=== PATIENT | female | born 1940 | race Caucasian/White ===

== ENCOUNTER 2016-07-18 22:23 | Inpatient (IN) | payer OTHER ==
[2016-07-18] MEDS ORDERED: NS 1,000 ML IV ONE (22:46)
--- NOTE | 2016-07-18 22:55 | PROVIDER DOCUMENTATION ---
HPI-General Adult <Costa Coleman Jaime - Last Filed: 07/19/16 01:03> - General Source: family - History of Present Illness -Gen Adult Nature of Presenting Problems: 76 year old F presents to the ED via EMS with a cc of cough, lethargy, and weakness. Per , pt has cancer and went to have chemo 3 day ago. Pt was told blood count was too low. Pt woke the next morning with a productive cough. states that pt has been more lethargic and weak. Location of Pain/Injury: reports: none Pain Radiation: reports: no radiation Quality of Pain: reports: none Severity: reports: mild Onset/Duration: reports: 2 days ago Timing: reports: still present Associated Symptoms: reports: cough, weakness, other (lethargy) Similar Symptoms Previously?: No Recently seen or treated by another doctor?: No <JeronimoYen - Last Filed: 07/19/16 01:12> - General Chief Complaint: Altered Mental Status Stated Complaint: AMS Time Seen by Provider: 07/18/16 22:30 Allergies/Adverse Reactions: Patient Allergies Allergy/AdvReac Type Severity Reaction Status Date / Time amoxicillin trihydrate * AdvReac Intermediate NAUSEA/VOMI Verified 02/26/13 08: 19 [From Augmentin] TING codeine [Codeine] AdvReac Intermediate NAUSEA/VOMI Verified 02/26/13 08:19 TING etodolac [From Lodine] AdvReac Intermediate NAUSEA/VOMI Verified 02/26/13 08:19 TING potassium clavulanate * AdvReac Intermediate NAUSEA/VOMI Verified 02/26/13 08:19 [From Augmentin] TING pseudoephedrine AdvReac Intermediate NAUSEA/VOMI Verified 02/26/13 08:19 TING simvastatin [From Zocor] AdvReac Intermediate NAUSEA/VOMI Verified 02/26/13 08: 19 TING zolpidem tartrate * AdvReac Intermediate NAUSEA/VOMI Verified 02/26/13 08:19 [From Ambien] TING Home Medications: Allopurinol 300 mg PO DAILY 03/03/12 Carvedilol [Coreg] 3.125 mg PO BID 03/03/12 Fluvoxamine [Luvox] 50 mg PO BID 03/03/12 Furosemide [Lasix] 60 mg PO DAILY PRN PRN 03/03/12 Levothyroxine [Synthroid] 50 microgm PO DAILY 03/03/12 Pravastatin Sodium [Pravachol] 10 mg PO DAILY 03/03/12 Promethazine [Phenergan] 25 mg PO TID PRN PRN 03/03/12 Tramadol [Ultram] 50 mg PO Q4H PRN PRN 03/03/12 Trazodone HCl 150 mg PO QHS 12/08/12 Warfarin Sodium [Coumadin] 2.5 mg PO DAILY 12/08/12 Omeprazole 40 mg PO HS 02/26/13 Lisinopril 5 mg PO DAILY 05/30/13 Lorazepam [Ativan] 0.5 mg PO BID 11/16/14 Acetaminophen [Tylenol] 500 mg PO PRN PRN 12/28/14 Metolazone [Zaroxolyn] 5 mg PO DIRECTED 12/28/14 Diclofenac 1% Gel [Voltaren 1% Gel] 2 gm TOP 4XDAY PRN 02/13/16 Gabapentin [Neurontin] 600 mg PO TID 02/13/16 Vit B6/Me-Thfolate/Me-B12/Ala [Podiapn Capsule] 1 each PO DAILY 02/13/16 Review of Systems - Adult - REVIEW OF SYSTEMS - ADULT Constitutional: reports: other (lethargy). denies: chills, fever Eyes: reports: no symptoms reported Ears, Nose, Mouth & Throat: reports: no symptoms reported Cardiovascular: denies: chest pain, palpitations Respiratory: reports: cough. denies: shortness of breath Gastrointestinal: reports: no symptoms reported Genitourinary: reports: no symptoms reported Musculoskeletal: reports: muscle weakness. denies: muscle aches Integumentary: reports: no symptoms reported Neurological: reports: no symptoms reported Psychiatric: reports: no symptoms reported Endocrine: reports: no symptoms reported Hematologic/Lymphatic: reports: no symptoms reported Allergic/Immunologic: reports: no symptoms reported All Other Systems: Reviewed and Negative <Yen Decker - Last Filed: 07/19/16 01:12> Past History - Adult - PAST MEDICAL HISTORY-ADULT Review of Records: reports: Nursing Assessment Review, Medications Reviewed Major Childhood Illnesses: reports: denies history Cardiovascular: reports: pacemaker Respiratory: reports: cancer Endocrine/Immune: reports: Diabetes, thyroid disorder - PRIOR SURGERIES/PROCEDURES Surgical/Procedure History: reports: none - IMMUNIZATION STATUS Childhood Immunizations: See Nurse Assessment Flu Vaccine: See Nurse Assessment - SOCIAL HISTORY Smoking: non-smoker Substance Use: none/never Alcohol Use Frequency: never <Yen Decker - Last Filed: 07/19/16 01:12> Physical Exam-General - PHYSICAL EXAM-ADULT Initial Vital Signs Reviewed: Yes - CONSTITUTIONAL General Appearance: appears well, alert, no apparent distress - RESPIRATORY Respiratory: chest non-tender, normal breath sounds, rhonchi (bilaterally) - CARDIOVASCULAR Cardiovascular: normal peripheral pulses, regular rate, rhythm, no edema - GASTROINTESTINAL (ABDOMEN) Abdominal Exam: non tender, soft - SKIN Integumentary: normal color, normal turgor, warm/dry - PSYCHIATRIC Psych/Mental Status: normal mood/affect, normal thought content, normal thought process, oriented x 3 <Yen Decker - Last Filed: 07/19/16 01:12> Progress - PLAN OF CARE/RESULTS Progress/Plan/Lab Results: Laboratory Tests 07/18/16 07/18/16 07/18/16 22:40 22:40 22:40 WBC RBC Hgb Hct MCV MCH MCHC RDW Std Deviation Plt Count MPV Immature Gran % (Auto) Neut % (Auto) Lymph % (Auto) [place] % (Auto) Eos % (Auto) Baso % (Auto) Immature Gran # (Auto) Neut # (Auto) Lymph # (Auto) [place] # (Auto) Eos # (Auto) Baso # (Auto) PT 24.9 H INR 2.33 PTT (Actin FS) 89.1 H POC Glucose Ammonia Creatine Kinase 48 Troponin T < 0.010 Plasma Lactate Urine Source Urine Color Urine Turbidity Urine pH Ur Specific [place] Urine Protein Ur Glucose (Stick) Ur Ketones (Stick) Urine Blood Urine Nitrite Urine Bilirubin Urobilinogen Dipstick Urine Leukocytes Urine WBC (Auto) Urine RBC (Auto) U Epithel Cells (Auto) Urine Bacteria (Auto) Urine Opiates Screen Ur Oxycodone Screen Ur Methadone, Qual Ur Barbiturates Screen Ur Phencyclidine Scrn Ur Amphetamines Screen U Benzodiazepines Scrn Urine Cocaine Screen U Cannabinoids Screen 07/18/16 07/18/16 07/18/16 22:40 22:40 22:45 WBC 1.77 L RBC 4.03 L Hgb 12.9 Hct 37.7 MCV 93.5 MCH 32.0 H MCHC 34.2 RDW Std Deviation 15.1 H Plt Count 133 MPV 12.7 H Immature Gran % (Auto) 0.0 Neut % (Auto) 1.1 L Lymph % (Auto) 48.0 [place] % (Auto) 50.3 H Eos % (Auto) 0.0 Baso % (Auto) 0.6 Immature Gran # (Auto) 0.00 Neut # (Auto) 0.02 L* Lymph # (Auto) 0.85 L [place] # (Auto) 0.89 H Eos # (Auto) 0.00 Baso # (Auto) 0.01 PT INR PTT (Actin FS) POC Glucose 156 H Ammonia Creatine Kinase Troponin T Plasma Lactate 1.4 Urine Source Urine Color Urine Turbidity Urine pH Ur Specific [place] Urine Protein Ur Glucose (Stick) Ur Ketones (Stick) Urine Blood Urine Nitrite Urine Bilirubin Urobilinogen Dipstick Urine Leukocytes Urine WBC (Auto) Urine RBC (Auto) U Epithel Cells (Auto) Urine Bacteria (Auto) Urine Opiates Screen Ur Oxycodone Screen Ur Methadone, Qual Ur Barbiturates Screen Ur Phencyclidine Scrn Ur Amphetamines Screen U Benzodiazepines Scrn Urine Cocaine Screen U Cannabinoids Screen 07/19/16 07/19/16 07/19/16 00:15 00:15 00:15 WBC RBC Hgb Hct MCV MCH MCHC RDW Std Deviation Plt Count MPV Immature Gran % (Auto) Neut % (Auto) Lymph % (Auto) [place] % (Auto) Eos % (Auto) Baso % (Auto) Immature Gran # (Auto) Neut # (Auto) Lymph # (Auto) [place] # (Auto) Eos # (Auto) Baso # (Auto) PT INR PTT (Actin FS) POC Glucose Ammonia 30 Creatine Kinase Troponin T Plasma Lactate Urine Source CLEAN CATCH Urine Color YELLOW Urine Turbidity CLEAR Urine pH 6.5 Ur Specific [place] 1.012 Urine Protein NEGATIVE Ur Glucose (Stick) NEGATIVE Ur Ketones (Stick) NEGATIVE Urine Blood NEGATIVE Urine Nitrite NEGATIVE Urine Bilirubin NEGATIVE Urobilinogen Dipstick NORMAL Urine Leukocytes NEGATIVE Urine WBC (Auto) <10 Urine RBC (Auto) <10 U Epithel Cells (Auto) <10 Urine Bacteria (Auto) NEGATIVE Urine Opiates Screen NONE DETECTED Ur Oxycodone Screen NONE DETECTED Ur Methadone, Qual NONE DETECTED Ur Barbiturates Screen NONE DETECTED Ur Phencyclidine Scrn NONE DETECTED Ur Amphetamines Screen NONE DETECTED U Benzodiazepines Scrn NONE DETECTED Urine Cocaine Screen NONE DETECTED U Cannabinoids Screen NONE DETECTED Orders Category Date Time Status Saline Loc NOW Care 07/18/16 22:30 Active CHEST-2 VIEWS [RAD] Stat Exams 07/18/16 22:31 Taken HEAD W/O CONTRAST [CT] Stat Exams 07/18/16 22:32 Taken AMMONIA [CHEM] Stat Lab 07/18/16 23:59 Completed BLOOD CULTURE [BLDCUL] Stat Lab 07/18/16 22:46 Ordered CBC WITH ELECTRONIC DIFF [HEME] Stat Lab 07/18/16 22:40 Results CK PROFILE [SP CHEM] Stat Lab 07/18/16 22:40 Completed COMPREHENSIVE METABOLIC PANEL [CHEM] Stat Lab 07/18/16 22:40 Received LACTATE, PLASMA [CHEM] Stat Lab 07/18/16 22:40 Completed LIPASE [CHEM] Stat Lab 07/18/16 22:40 Received MAGNESIUM [CHEM] Stat Lab 07/18/16 22:40 Received PROTIME WITH INR [COAG] Stat Lab 07/18/16 22:40 Completed PTT [COAG] Stat Lab 07/18/16 22:40 Completed TROPONIN T Stat Lab 07/18/16 22:40 Completed URINALYSIS W/POSS RFLX CULT [URINALYSIS] Stat Lab 07/18/16 22:40 Completed URINE DRUG SCREEN Stat Lab 07/19/16 00:15 Completed 0.9% Sodium Chloride Inj [Ns] 1,000 ml Med 07/18/16 22:46 Discontinued IV 999 mls/hr CefTRIAXONE 1 GM/NS [Rocephin 1 gm/Ns] 50 ml Med 07/19/16 01:00 Active IV NOW EKG [EKG] Stat Ther 07/18/16 22:30 Ordered Vital Signs Temp Pulse Resp BP Pulse Ox 07/18/16 22:27 99.0 F 70 14 113/61 92 L amoxicillin trihydrate * [From Augmentin] Adverse Reaction (Intermediate, Verified 02/26/13 08:19) NAUSEA/VOMITING codeine [Codeine] Adverse Reaction (Intermediate, Verified 02/26/13 08:19) NAUSEA/VOMITING etodolac [From Lodine] Adverse Reaction (Intermediate, Verified 02/26/13 08:19) NAUSEA/VOMITING potassium clavulanate * [From Augmentin] Adverse Reaction (Intermediate, Verified 02/26/13 08:19) NAUSEA/VOMITING pseudoephedrine Adverse Reaction (Intermediate, Verified 02/26/13 08:19) NAUSEA/VOMITING simvastatin [From Zocor] Adverse Reaction (Intermediate, Verified 02/26/13 08:19 ) NAUSEA/VOMITING zolpidem tartrate * [From Ambien] Adverse Reaction (Intermediate, Verified 02/26 08:19) NAUSEA/VOMITING Allopurinol 300 mg PO DAILY 12 Carvedilol [Coreg] 3.125 mg PO BID 03/03/12 Fluvoxamine [Luvox] 50 mg PO BID 03/03/12 Furosemide [Lasix] 60 mg PO DAILY PRN PRN 03/03/12 Levothyroxine [Synthroid] 50 microgm PO DAILY 03/03/12 Pravastatin Sodium [Pravachol] 10 mg PO DAILY 03/03/12 Promethazine [Phenergan] 25 mg PO TID PRN PRN 03/03/12 Tramadol [Ultram] 50 mg PO Q4H PRN PRN 03/03/12 Trazodone HCl 150 mg PO QHS 12/08/12 Warfarin Sodium [Coumadin] 2.5 mg PO DAILY 12/08/12 Omeprazole 40 mg PO HS 02/26/13 Lisinopril 5 mg PO DAILY 05/30/13 Lorazepam [Ativan] 0.5 mg PO BID 11/16/14 Acetaminophen [Tylenol] 500 mg PO PRN PRN 12/28/14 Metolazone [Zaroxolyn] 5 mg PO DIRECTED 12/28/14 Diclofenac 1% Gel [Voltaren 1% Gel] 2 gm TOP 4XDAY PRN 02/13/16 Gabapentin [Neurontin] 600 mg PO TID 02/13/16 Vit B6/Me-Thfolate/Me-B12/Ala [Podiapn Capsule] 1 each PO DAILY 02/13/16 Laboratory 07/19/16 07/19/16 07/19/16 00:15 00:15 00:15 WBC RBC Hgb Hct MCV MCH MCHC RDW Std Deviation Plt Count MPV Immature Gran % (Auto) Neut % (Auto) Lymph % (Auto) [place] % (Auto) Eos % (Auto) Baso % (Auto) Immature Gran # (Auto) Neut # (Auto) Lymph # (Auto) [place] # (Auto) Eos # (Auto) Baso # (Auto) PT INR PTT (Actin FS) POC Glucose Ammonia 30 Creatine Kinase Troponin T Plasma Lactate Urine Source CLEAN CATCH Urine Color YELLOW Urine Turbidity CLEAR Urine pH 6.5 Ur Specific [place] 1.012 Urine Protein NEGATIVE Ur Glucose (Stick) NEGATIVE Ur Ketones (Stick) NEGATIVE Urine Blood NEGATIVE Urine Nitrite NEGATIVE Urine Bilirubin NEGATIVE Urobilinogen Dipstick NORMAL Urine Leukocytes NEGATIVE Urine WBC (Auto) <10 Urine RBC (Auto) <10 U Epithel Cells (Auto) <10 Urine Bacteria (Auto) NEGATIVE Urine Opiates Screen NONE DETECTED Ur Oxycodone Screen NONE DETECTED Ur Methadone, Qual NONE DETECTED Ur Barbiturates Screen NONE DETECTED Ur Phencyclidine Scrn NONE DETECTED Ur Amphetamines Screen NONE DETECTED U Benzodiazepines Scrn NONE DETECTED Urine Cocaine Screen NONE DETECTED U Cannabinoids Screen NONE DETECTED 07/18/16 07/18/16 07/18/16 22:45 22:40 22:40 WBC 1.77 L RBC 4.03 L Hgb 12.9 Hct 37.7 MCV 93.5 MCH 32.0 H MCHC 34.2 RDW Std Deviation 15.1 H Plt Count 133 MPV 12.7 H Immature Gran % (Auto) 0.0 Neut % (Auto) 1.1 L Lymph % (Auto) 48.0 [place] % (Auto) 50.3 H Eos % (Auto) 0.0 Baso % (Auto) 0.6 Immature Gran # (Auto) 0.00 Neut # (Auto) 0.02 L* Lymph # (Auto) 0.85 L [place] # (Auto) 0.89 H Eos # (Auto) 0.00 Baso # (Auto) 0.01 PT INR PTT (Actin FS) POC Glucose 156 H Ammonia Creatine Kinase Troponin T Plasma Lactate 1.4 Urine Source Urine Color Urine Turbidity Urine pH Ur Specific [place] Urine Protein Ur Glucose (Stick) Ur Ketones (Stick) Urine Blood Urine Nitrite Urine Bilirubin Urobilinogen Dipstick Urine Leukocytes Urine WBC (Auto) Urine RBC (Auto) U Epithel Cells (Auto) Urine Bacteria (Auto) Urine Opiates Screen Ur Oxycodone Screen Ur Methadone, Qual Ur Barbiturates Screen Ur Phencyclidine Scrn Ur Amphetamines Screen U Benzodiazepines Scrn Urine Cocaine Screen U Cannabinoids Screen 07/18/16 07/18/16 07/18/16 22:40 22:40 22:40 WBC RBC Hgb Hct MCV MCH MCHC RDW Std Deviation Plt Count MPV Immature Gran % (Auto) Neut % (Auto) Lymph % (Auto) [place] % (Auto) Eos % (Auto) Baso % (Auto) Immature Gran # (Auto) Neut # (Auto) Lymph # (Auto) [place] # (Auto) Eos # (Auto) Baso # (Auto) PT 24.9 H INR 2.33 PTT (Actin FS) 89.1 H POC Glucose Ammonia Creatine Kinase 48 Troponin T < 0.010 Plasma Lactate Urine Source Urine Color Urine Turbidity Urine pH Ur Specific [place] Urine Protein Ur Glucose (Stick) Ur Ketones (Stick) Urine Blood Urine Nitrite Urine Bilirubin Urobilinogen Dipstick Urine Leukocytes Urine WBC (Auto) Urine RBC (Auto) U Epithel Cells (Auto) Urine Bacteria (Auto) Urine Opiates Screen Ur Oxycodone Screen Ur Methadone, Qual Ur Barbiturates Screen Ur Phencyclidine Scrn Ur Amphetamines Screen U Benzodiazepines Scrn Urine Cocaine Screen U Cannabinoids Screen Will admit to hospitalist service for neutropenic fever and possible pneumonia. - XRAY 1 XRAY Study: Chest XRAY Interpretation: ? bilateral infiltrates - CT/MRI 1 CT Study: Head CT Results: sinusitis, likely chronic; chronic ischemic changes; otherwise NAD <Costa Coleman - Last Filed: 07/19/16 01:03> - PLAN OF CARE/RESULTS Progress/Plan/Lab Results: plan of care: labs, imaging, fluids, medications, EKG Orders Category Date Time Status Saline Loc NOW Care 07/18/16 22:30 Active CHEST-2 VIEWS [RAD] Stat Exams 07/18/16 22:31 Taken HEAD W/O CONTRAST [CT] Stat Exams 07/18/16 22:32 Taken AMMONIA [CHEM] Stat Lab 07/18/16 23:59 Completed BLOOD CULTURE [BLDCUL] Stat Lab 07/18/16 23:39 Received CBC WITH ELECTRONIC DIFF [HEME] Stat Lab 07/18/16 22:40 Results CK PROFILE [SP CHEM] Stat Lab 07/18/16 22:40 Completed COMPREHENSIVE METABOLIC PANEL [CHEM] Stat Lab 07/18/16 22:40 Received LACTATE, PLASMA [CHEM] Stat Lab 07/18/16 22:40 Completed LIPASE [CHEM] Stat Lab 07/18/16 22:40 Received MAGNESIUM [CHEM] Stat Lab 07/18/16 22:40 Received PROTIME WITH INR [COAG] Stat Lab 07/18/16 22:40 Completed PTT [COAG] Stat Lab 07/18/16 22:40 Completed TROPONIN T Stat Lab 07/18/16 22:40 Completed URINALYSIS W/POSS RFLX CULT [URINALYSIS] Stat Lab 07/18/16 22:40 Completed URINE DRUG SCREEN Stat Lab 07/19/16 00:15 Completed 0.9% Sodium Chloride Inj [Ns] 1,000 ml Med 07/18/16 22:46 Discontinued IV 999 mls/hr CefTRIAXONE 1 GM/NS [Rocephin 1 gm/Ns] 50 ml Med 07/19/16 01:00 Discontinued IV NOW Meropenem [Merrem] 1 gm Med 07/19/16 01:09 Active 0.9% Sodium Chloride Inj [Ns] 50 ml IV NOW EKG [EKG] Stat Ther 07/18/16 22:30 Ordered Laboratory Tests 07/18/16 07/18/16 07/18/16 22:40 22:40 22:40 WBC RBC Hgb Hct MCV MCH MCHC RDW Std Deviation Plt Count MPV Immature Gran % (Auto) Neut % (Auto) Lymph % (Auto) [place] % (Auto) Eos % (Auto) Baso % (Auto) Immature Gran # (Auto) Neut # (Auto) Lymph # (Auto) [place] # (Auto) Eos # (Auto) Baso # (Auto) PT 24.9 H INR 2.33 PTT (Actin FS) 89.1 H POC Glucose Ammonia Creatine Kinase 48 Troponin T < 0.010 Plasma Lactate Urine Source Urine Color Urine Turbidity Urine pH Ur Specific [place] Urine Protein Ur Glucose (Stick) Ur Ketones (Stick) Urine Blood Urine Nitrite Urine Bilirubin Urobilinogen Dipstick Urine Leukocytes Urine WBC (Auto) Urine RBC (Auto) U Epithel Cells (Auto) Urine Bacteria (Auto) Urine Opiates Screen Ur Oxycodone Screen Ur Methadone, Qual Ur Barbiturates Screen Ur Phencyclidine Scrn Ur Amphetamines Screen U Benzodiazepines Scrn Urine Cocaine Screen U Cannabinoids Screen 07/18/16 07/18/16 07/18/16 22:40 22:40 22:45 WBC 1.77 L RBC 4.03 L Hgb 12.9 Hct 37.7 MCV 93.5 MCH 32.0 H MCHC 34.2 RDW Std Deviation 15.1 H Plt Count 133 MPV 12.7 H Immature Gran % (Auto) 0.0 Neut % (Auto) 1.1 L Lymph % (Auto) 48.0 [place] % (Auto) 50.3 H Eos % (Auto) 0.0 Baso % (Auto) 0.6 Immature Gran # (Auto) 0.00 Neut # (Auto) 0.02 L* Lymph # (Auto) 0.85 L [place] # (Auto) 0.89 H Eos # (Auto) 0.00 Baso # (Auto) 0.01 PT INR PTT (Actin FS) POC Glucose 156 H Ammonia Creatine Kinase Troponin T Plasma Lactate 1.4 Urine Source Urine Color Urine Turbidity Urine pH Ur Specific [place] Urine Protein Ur Glucose (Stick) Ur Ketones (Stick) Urine Blood Urine Nitrite Urine Bilirubin Urobilinogen Dipstick Urine Leukocytes Urine WBC (Auto) Urine RBC (Auto) U Epithel Cells (Auto) Urine Bacteria (Auto) Urine Opiates Screen Ur Oxycodone Screen Ur Methadone, Qual Ur Barbiturates Screen Ur Phencyclidine Scrn Ur Amphetamines Screen U Benzodiazepines Scrn Urine Cocaine Screen U Cannabinoids Screen 07/19/16 07/19/16 07/19/16 00:15 00:15 00:15 WBC RBC Hgb Hct MCV MCH MCHC RDW Std Deviation Plt Count MPV Immature Gran % (Auto) Neut % (Auto) Lymph % (Auto) [place] % (Auto) Eos % (Auto) Baso % (Auto) Immature Gran # (Auto) Neut # (Auto) Lymph # (Auto) [place] # (Auto) Eos # (Auto) Baso # (Auto) PT INR PTT (Actin FS) POC Glucose Ammonia 30 Creatine Kinase Troponin T Plasma Lactate Urine Source CLEAN CATCH Urine Color YELLOW Urine Turbidity CLEAR Urine pH 6.5 Ur Specific [place] 1.012 Urine Protein NEGATIVE Ur Glucose (Stick) NEGATIVE Ur Ketones (Stick) NEGATIVE Urine Blood NEGATIVE Urine Nitrite NEGATIVE Urine Bilirubin NEGATIVE Urobilinogen Dipstick NORMAL Urine Leukocytes NEGATIVE Urine WBC (Auto) <10 Urine RBC (Auto) <10 U Epithel Cells (Auto) <10 Urine Bacteria (Auto) NEGATIVE Urine Opiates Screen NONE DETECTED Ur Oxycodone Screen NONE DETECTED Ur Methadone, Qual NONE DETECTED Ur Barbiturates Screen NONE DETECTED Ur Phencyclidine Scrn NONE DETECTED Ur Amphetamines Screen NONE DETECTED U Benzodiazepines Scrn NONE DETECTED Urine Cocaine Screen NONE DETECTED U Cannabinoids Screen NONE DETECTED Vital Signs - 24 hr 07/18/16 22:27 Temperature 99.0 F Pulse Rate 70 Respiratory 14 Rate Blood Pressure 113/61 O2 Sat by Pulse 92 L Oximetry Pt/family given results. Pt will be admitted to the hospitalist group. PT/ Family in agreement with plan of care. - EKG 1 Time of EKG reading by physician:: 22:28 EKG Read and Signed by:: Zurdo Dudley EKG Interpretation (*Must complete 3 of following elements*): Abnormal Rate: 70 Rhythm: ventricular paced rhythm [place]: normal - CONSULTS/PCP/HOSPITALIST Notification #1 *Consult/PCP/Hospitalist*: Dr. Austin([facility] Hospitalist) Time Discussed: 01:08 Consult Disposition: Will see in ED, Admit <Yen Decker - Last Filed: 07/19/16 01:12> Departure <Costa Coleman - Last Filed: 07/19/16 01:03> - Departure Time of Disposition Order: 01:10 Certified Medical Emergency: Emergent <Yen Decker - Last Filed: 07/19/16 01:12> - Departure DIAGNOSIS: Altered mental state Qualifiers: Altered mental status type: delirium Qualified Code(s): R41.0 - Disorientation , unspecified Neutropenia Qualifiers: Neutropenia type: secondary to cancer chemotherapy Qualified Code(s): D70.1 - Agranulocytosis secondary to cancer chemotherapy Pneumonia Qualifiers: Pneumonia type: due to unspecified organism Laterality: bilateral Lung location : lower lobe of lung Qualified Code(s): J18.9 - Pneumonia, unspecified organism Disposition: ADMITTED INPATIENT 09 Condition: Stable Referrals: Mary Shah MD [Primary Care Provider] - Attestation - Scribe Verification/Attestation Scribe:: Yen Decker Acting as Scribe for:: Costa Coleman Scribe documention review:: This chart was documented by a scribe and accurately reflects the service the provider performed and the decisions made by the provider. <Yen Decker - Last Filed: 07/19/16 01:12> Physician Attestation - Physician Attestation I, the provider, attest to the following statement:: Costa Coleman Physician documentation Attestation:: This documentation recorded by the scribe accurately reflects the service I personally performed and the decisions made by me. <Yen Decker - Last Filed: 07/19/16 01:12>
[2016-07-18 23:55] LABS: INR 2.33; PROTIME 24.9 Seconds (9.2-11.7); PTT 89.1 Seconds (22.0-36.0)
[2016-07-19 00:30] LABS: URINE CULTURE NEEDED? NO; URINE MICRO REVIEW NEEDED? NO; URINE SOURCE CLEAN CATCH
[2016-07-19 00:43] LABS: BILIRUBIN URINE NEGATIVE (NEGATIVE); BLOOD URINE NEGATIVE (NEGATIVE); COLOR YELLOW; GLUCOSE URINE NEGATIVE (NEGATIVE); LEUKOCYTES URINE NEGATIVE (NEGATIVE); NITRITE URINE NEGATIVE (NEGATIVE); PH URINE 6.5; PROTEIN URINE NEGATIVE (NEGATIVE); SP GRAVITY URINE 1.012; TURBIDITY URINE CLEAR (CLEAR); UROBILINOGEN URINE NORMAL (NORMAL)
[2016-07-19 00:44] LABS: UR EPITHELIAL CELLS <10 /HPF (<10); URINE BACTERIA NEGATIVE /HPF; URINE RBC <10 /HPF (<10); URINE WBC <10 /HPF (<10)
[2016-07-19 00:54] LABS: BASO% 0.6 % (0.0-0.8); HEMATOCRIT 37.7 % (37.0-47.0); HEMOGLOBIN 12.9 g/dL (12.0-16.0); LYMPH# 0.85 X1000 (1.2-3.4); MANUAL DIFF NEEDED? YES; MCHC 34.2 g/dL (33-37); MCV 93.5 FL (81-99); MONO# 0.89 X1000 (0.11-0.59); MONO% 50.3 % (1.7-9.3); MPV 12.7 FL (7.4-10.4); NEUT% 1.1 % (42.2-75.2); PLT 133 X1000 (130-400); RBC 4.03 XMIL (4.2-5.4)
[2016-07-19 00:59] LABS: UR AMPHETAMINES QUAL NONE DETECTED (NONE DETECT); UR BARBITUATES QUAL NONE DETECTED (NONE DETECT); UR BENZODIAZEPIN QUAL NONE DETECTED (NONE DETECT); UR CANNABINOIDS QUAL NONE DETECTED (NONE DETECT); UR COCAINE QUAL NONE DETECTED (NONE DETECT); UR METHADONE QUAL NONE DETECTED (NONE DETECT); UR OPIATES QUAL NONE DETECTED (NONE DETECT); UR OXYCODONE QUAL NONE DETECTED (NONE DETECT); UR PCP QUAL NONE DETECTED (NONE DETECT)
[2016-07-19] MEDS ORDERED: ROCEPHIN 1 GM/NS 50 ML IV ONE (01:00)
[2016-07-19] MEDS ORDERED: MERREM 1 GM in NS 50 ML IV ONE (01:09)
[2016-07-19 01:23] LABS: CHLORIDE 96 mmol/L (98-107); POTASSIUM 3.3 mmol/L (3.5-5.1); SODIUM 136 mmol/L (136-145); TCO2 24 mmol/L (25-35)
[2016-07-19 01:24] LABS: AGAP 16; BUN 15 mg/dL (8-22); COSMO 276
[2016-07-19 01:25] LABS: CALCIUM 9.1 mg/dL (8.8-10.2)
[2016-07-19 01:26] LABS: ALKALINE PHOSPHATASE 142 U/L (32-104); GOT 17 U/L (10-30); GPT 11 U/L (10-36); LIPASE 8 U/L (13-60); TOTAL BILIRUBIN 2.31 mg/dL (0.20-1.00); TOTAL PROTEIN 6.8 g/dL (6.3-8.3)
[2016-07-19 01:27] LABS: MAGNESIUM 1.3 mg/dL (1.5-2.7)
[2016-07-19 01:31] LABS: LYMPHS 55 % (21-51); MONO 41 % (1-9)
--- NOTE | 2016-07-19 02:02 | Diag Imaging Result Document ---
PROCEDURE NAME: HEAD W/O CONTRAST - 07/18/2016 CT BRAIN WITHOUT CONTRAST: COMPARISON: Dose reduction protocol. FINDINGS: No parenchymal hemorrhage. No epidural or subdural hematoma. No subarachnoid hemorrhage. Minimal microvascular ischemic changes. No hydrocephalus. There is opacification of the right maxillary sinus. Fluid or polyp fills the posterior right ethmoid sinus. IMPRESSION: 1. No hemorrhage. 2. Mild microvascular ischemic changes. 3. Chronic sinusitis. A preliminary report was given at 11:40 p.m.
[2016-07-19] MEDS ORDERED: ZOFRAN ONE (03:41)
[2016-07-19] MEDS: ZOFRAN IV PRN ×2 (03:45→23:34)
--- NOTE | 2016-07-19 04:37 | HISTORY AND PHYSICAL ---
CHIEF COMPLAINT: Weakness, cough, lethargy. BRIEF HISTORY OF PRESENTING ILLNESS: A 76-year-old female with a history of lung cancer, on chemotherapy was brought to the emergency department because she was somewhat lethargic, as per spouse, patient was coughing for several days. She was evaluated in the ER. She had a low-grade temperature and she was neutropenic. It was subsequently thought that she had neutropenic fever and would need hospitalization for further management. The patient is a poor historian. Most of the history is obtained from the spouse. At time my examination, however, she had denied any headache, chest pain, shortness of breath, but did complain of not feeling well and weak. PAST MEDICAL HISTORY: Includes lung cancer, CHF. PAST SURGICAL HISTORY: Right lung surgery, pacemaker. ALLERGIES: Amoxicillin, codeine, etodolac. CURRENT MEDICATIONS: Listed in the MAR. SOCIAL HISTORY: No history of smoking, alcohol or illicit drug use. FAMILY HISTORY: No history of coronary disease. REVIEW OF SYSTEMS: Twelve point systems is as in HPI. Other systems negative. PHYSICAL EXAMINATION: GENERAL: Somewhat lethargic female. She is without any respiratory distress. VITAL SIGNS: Temperature 99 degrees, pulse 70, respiration 14, blood pressure 113/61. She is saturating 92%. HEENT: Atraumatic, normocephalic. Extraocular movements intact. PERRLA. NECK: No masses. CHEST: Bibasilar rales. CARDIOVASCULAR: Regular rate and rhythm. ABDOMEN: Soft. Positive bowel sounds. EXTREMITIES: No edema. NEURO: She is awake, alert, oriented x1. : No bladder distention. SKIN: Warm. LABORATORIES AND STUDIES: INR 2.33. WBCs 1.77, hemoglobin 12.9, hematocrit 37.7, platelets 133,000. Sodium 136, potassium 3.3, chloride 96, CO2 24, BUN is 15, creatinine 0.9, glucose 158. UA is negative. ASSESSMENT: A 76-year-old female with a history of lung cancer, brought to the emergency department. The patient was somewhat lethargic and having cough symptoms. She was evaluate in the ER. She had a low-grade temp and was neutropenic. Subsequently she will need hospitalization for further management. 1. Suspected neutropenic fever. 2. Acute bronchitis. 3. Lung cancer. 4. Generalized weakness. PLAN: 1. We will admit patient to medical floor. 2. We will check blood cultures. Start patient on IV antibiotics. 3. We will give patient a cough suppressant. 4. We will continue gentle hydration. 5. We will consult her oncologist. 6. The patient on DVT prophylaxis with SCDs. 7. We will continue to follow and reassess. LEDA
[2016-07-19 06:37] LABS: INR 2.17; PROTIME 23.2 Seconds (9.2-11.7)
--- NOTE | 2016-07-19 06:54 | Diag Imaging Result Document ---
PROCEDURE NAME: CHEST-2 VIEWS - 07/18/2016 FRONTAL AND LATERAL CHEST, 2 VIEWS: COMPARISON: Chest is compared to 02/13/2016. FINDINGS: The lungs are well expanded. Heart is enlarged. The patient has a left-sided pacemaker. There is a right subclavian [id number]. No pneumothorax. There is a small left pleural effusion. Mass-like density in the right costophrenic angle is similar in size to that of the prior exam. There are basilar infiltrates and atelectasis. IMPRESSION: 1. Development of basilar infiltrates and atelectasis. 2. Cardiomegaly with a left pleural effusion. 3. Mass-like area in the right costophrenic angle is similar in size to the prior exam although it is more dense on the current study.
[2016-07-19] MEDS: MERREM 1 GM in NS 50 ML IV SCH ×2 (10:00→16:16)
[2016-07-19] MEDS: GRANIX SUBQ SCH (11:07)
--- NOTE | 2016-07-19 15:10 | CONSULTATION ---
DATE OF CONSULTATION: 07/19/2016 REQUESTING PHYSICIAN: Dr. Sullivan. REASON FOR CONSULTATION: Neutropenic fever, patient known. HISTORY OF PRESENT ILLNESS: Mrs. Sepulveda is a 76-year-old female who is known to us as Dr. Tsai is currently treating her for lung cancer. Patient is status post 3 cycles of adjuvant carbo/Taxol therapy back in March of 2015. Patient recently had restaging scans in January which showed progression of disease. She was then started on Opdivo with palliative intent. Patient had progression again and has recently started Abraxane only therapy. Patient is status post cycle 1, day 1 of Abraxane on 07/08/2016. The patient was in our office on 07/16/2016 to receive cycle 1, day 8 but her CBC revealed her to have neutropenia with an ANC of 0.2. At that time the patient was started on p.o. Cipro and chemotherapy was held. Per the patient's who is at bedside with her today, sometime last night the patient started to have some altered mental status and then reported that her chest hurt. The called the ambulance service and the patient was brought to [facility] via ambulance. Upon presentation she was found to have some altered mental status as well as neutropenia with low-grade fever. Patient was subsequently admitted for IV antibiotics and close monitoring. We have been consulted for the previously mentioned. PAST MEDICAL HISTORY: 1. Left lower lobe lung cancer. 2. Left lower extremity DVT. 3. History of diffuse large B-cell lymphoma. Completing treatment back in 2005. 4. Adriamycin induced cardiomyopathy. PAST SURGICAL HISTORY: 1. Lobectomy. 2. Pacemaker placement. SOCIAL HISTORY: Patient lives with her . She does not use any alcohol or illicit drugs at this time. REVIEW OF SYSTEMS: As per HPI. All else is negative or noncontributory. PHYSICAL EXAMINATION: Vital Signs: Temperature 98.4 degrees, heart rate 70, respirations 16, blood pressure 107/61, O2 saturation 96% on 2 L nasal cannula. General: female lying in hospital bed. She appears to be tired and does not talk through the interview. History taken from her who is at bedside. Ears, nose, throat, neck, and mouth: Oral mucosa is normal. Gross auditory acuity is intact. Trachea is midline. Cardiovascular: S1 and S2 heard without murmurs, gallops, rubs appreciated. Respiratory: Essentially clear to auscultation bilaterally. Normal respiratory effort. Gastrointestinal: Abdomen is soft, nondistended. Positive bowel sounds. Musculoskeletal: No bony abnormalities noted. Extremities: No edema is noted. Neurologic: Patient will respond when spoken to and can answer questions. She just appears to be rather tired. No focal motor deficits noted. LABS AND STUDIES: White blood cell 1.77, hemoglobin 12.9, hematocrit 37.7, platelets 133,000. ANC 0.02. INR 2.17. Sodium 136, potassium 3.3, chloride 96, CO2 24, BUN 15, creatinine 0.9, glucose 158. Head CT is negative except for some chronic sinusitis. No acute findings. Chest x- ray does show development of basilar infiltrates and atelectasis. Cardiomegaly with a left pleural effusion is noted. This is a small left pleural effusion. Masslike area in the right costophrenic angle is similar in size to the prior exam, although it is more dense at this time. ASSESSMENT AND PLAN: 1. Lung cancer. Patient is status post cycle 1, day 1 of Abraxane 07/08/2016. Cycle 1, day 8 had to be held secondary to neutropenia. We will continue to hold treatment at this time. 2. Neutropenic fever. T-max has been 99.0. The patient is currently afebrile. Continue IV antibiotics, neutropenic precautions, and we will go ahead and start Granix 480 mcg to be given daily until her neutrophils recover. Follow cultures. 3. Left lower extremity deep vein thrombosis. Patient is not on any anticoagulation at this time. Patient is on antibiotics. Her INR is good at 2.17. Continue to monitor. Consider initiating either Coumadin or Lovenox if her INR were to become subtherapeutic. The patient was on 2.5 mg of Coumadin as an outpatient. We will continue to monitor. Thank you for allowing us to participate in Mrs. Sepulveda's care while she is at [facility]. Will continue follow along and adjust our treatment plan per her hospital course. Dictated by RICHARD Redding for Oralia Tsai MD
[2016-07-19] MEDS: DUONEB (A & A) INH SCH ×2 (20:41→23:45)
[2016-07-19] MEDS: COUMADIN PO SCH (21:45)
[2016-07-20] MEDS: MERREM 1 GM in NS 50 ML IV SCH ×3 (00:57→16:22)
[2016-07-20] MEDS: DUONEB (A & A) INH SCH ×6 (03:01→23:51)
[2016-07-20] MEDS: MORPHINE IV PRN ×3 (03:18→16:22)
[2016-07-20 06:44] LABS: BASO% 0.4 % (0.0-0.8); EOS# 0.01 X1000 (0.0-0.7); EOS% 0.2 % (0.0-10.0); HEMATOCRIT 35.3 % (37.0-47.0); HEMOGLOBIN 11.8 g/dL (12.0-16.0); IMM GRAN# 0.06 X1000 (0.0-0.04); IMM GRAN% 1.1 % (0.0-0.5); LYMPH# 1.02 X1000 (1.2-3.4); LYMPH% 18.1 % (20.5-51.1); MANUAL DIFF NEEDED? YES; MCH 31.7 PG (27-31); MCHC 33.4 g/dL (33-37); MCV 94.9 FL (81-99); MONO# 1.45 X1000 (0.11-0.59); MONO% 25.7 % (1.7-9.3); MPV 12.3 FL (7.4-10.4); NEUT% 54.5 % (42.2-75.2); PLT 120 X1000 (130-400); RBC 3.72 XMIL (4.2-5.4)
[2016-07-20 06:56] LABS: AGAP 13; BUN 17 mg/dL (8-22); CALCIUM 9.7 mg/dL (8.8-10.2); CHLORIDE 97 mmol/L (98-107); COSMO 275; SODIUM 136 mmol/L (136-145); TCO2 26 mmol/L (25-35)
[2016-07-20 07:02] LABS: INR 2.13; PROTIME 22.8 Seconds (9.2-11.7)
[2016-07-20 07:04] LABS: LYMPHS 14 % (21-51); MONO 24 % (1-9)
[2016-07-20] MEDS ORDERED: KLOR-CON PO ONE (09:15)
[2016-07-20] MEDS ORDERED: SYNTHROID PO ONE (09:20)
[2016-07-20] MEDS: GRANIX SUBQ SCH (09:23)
[2016-07-20] MEDS ORDERED: MAGNESIUM SULFATE 2 GM/S.W.I. 50 ML IV ONE (10:47)
[2016-07-20] MEDS ORDERED: ULTRAM PO PRN (10:48)
--- NOTE | 2016-07-20 15:34 | PROGRESS NOTE ---
DATE: 07/20/2016 SUBJECTIVE: The patient is sitting up at the edge of the bed. She states that she feels a lot better today. She is not on any supplemental oxygen at this time. The patient is no longer neutropenic and she is afebrile. OBJECTIVE: Vital Signs: Temperature 98.1 degrees, blood pressure 118/60, heart rate 70, respirations 16, O2 saturations 93% on room air. General: This is an elderly female sitting at the edge of the bed in no acute distress. Head: Normocephalic. Atraumatic. Heart: S1, S2. Normal. Regular rate and rhythm. Lungs: Clear to auscultation bilaterally. No wheezes, no rales. No rhonchi. Abdomen: Positive bowel sounds. Soft, nontender, nondistended. Extremities: No edema. No cyanosis. No calf tenderness. Neurologic: The patient is alert and oriented x3. LABS: White blood cell count 5.6, hemoglobin 11, hematocrit 35, platelets 120, 000. INR 2.1. Sodium 136, potassium 3, chloride 97, CO2 26, BUN 17, creatinine 0.8, glucose 125, magnesium 1.4. ASSESSMENT AND PLAN: 1. Neutropenic fever. Resolved. The blood cultures remain negative so far. 2. Pneumonia. Continue on the current IV antibiotic regimen. 3. Left lower extremity deep vein thrombosis. The patient is currently on Coumadin. The INR is therapeutic today. 4. Lung cancer status post cycle 1 of chemotherapy. Management as per Dr. Tsai. 5. Hypomagnesemia. Will replace the patient's magnesium. 6. Hypokalemia. Will replace the patient's potassium. 7. Anxiety disorder. Continue on Xanax. 8. Hypothyroidism. Continue on Synthroid. 9. Will consult physical therapy. 10. Disposition. The patient can be discharged home once cleared by Dr. Tsai. [facility]
[2016-07-20] MEDS: COUMADIN PO SCH (20:34)
[2016-07-20] MEDS: ATIVAN PO SCH (20:34)
[2016-07-20] MEDS ORDERED: DESYREL PO SCH (21:00)
[2016-07-21] MEDS: MERREM 1 GM in NS 50 ML IV SCH ×2 (02:13→10:07)
[2016-07-21] MEDS: DUONEB (A & A) INH SCH ×4 (04:00→15:20)
[2016-07-21 06:18] LABS: BASO% 0.5 % (0.0-0.8); EOS# 0.01 X1000 (0.0-0.7); EOS% 0.1 % (0.0-10.0); HEMOGLOBIN 11.3 g/dL (12.0-16.0); IMM GRAN# 0.52 X1000 (0.0-0.04); IMM GRAN% 5.2 % (0.0-0.5); LYMPH# 1.49 X1000 (1.2-3.4); LYMPH% 14.9 % (20.5-51.1); MANUAL DIFF NEEDED? YES; MCH 31.4 PG (27-31); MCHC 33.2 g/dL (33-37); MCV 94.4 FL (81-99); MONO# 1.43 X1000 (0.11-0.59); MONO% 14.3 % (1.7-9.3); MPV 11.4 FL (7.4-10.4); PLT 115 X1000 (130-400)
[2016-07-21 06:30] LABS: INR 2.65; PROTIME 28.4 Seconds (9.2-11.7)
[2016-07-21 07:00] LABS: AGAP 14; BUN 16 mg/dL (8-22); CHLORIDE 98 mmol/L (98-107); COSMO 276; MAGNESIUM 1.8 mg/dL (1.5-2.7); POTASSIUM 3.5 mmol/L (3.5-5.1); SODIUM 137 mmol/L (136-145); TCO2 25 mmol/L (25-35)
[2016-07-21] MEDS ORDERED: SYNTHROID PO SCH (07:00)
[2016-07-21 07:24] LABS: BANDS 16 % (0-1); HYPOCHROM 2+; LYMPHS 16 % (21-51); MONO 4 % (1-9); NRBC 1 % (0-0)
[2016-07-21 07:32] VITALS: BP 113/87
--- NOTE | 2016-07-21 07:42 | Diag Imaging Result Document ---
PROCEDURE NAME: CHEST-PORTABLE - 07/21/2016 SINGLE FRONTAL RADIOGRAPH OF THE CHEST: COMPARISON: 07/18/2016. FINDINGS: Right chest port is stable. Small left pleural effusion with adjacent atelectasis and/or infiltrate is stable. Atelectasis and/or infiltrate at the right lung base is essentially stable. Nodular focus near the right costophrenic angle is perhaps slightly less dense than the previous study. No new consolidations are identified. Cardiac silhouette is stable. IMPRESSION: Slightly less dense nodular focus at the right costophrenic angle. Otherwise, stable chest.
[2016-07-21] MEDS: ATIVAN PO SCH (10:07)
[2016-07-21] MEDS ORDERED: HALL'S COUGH LOZENGE MT PRN (14:07)
--- NOTE | 2016-07-21 14:45 | PROGRESS NOTE ---
DATE: 07/21/2016 SUBJECTIVE: The patient is feeling much better today. She denies having any fever or chills. Denies having any nausea, vomiting, or diarrhea. OBJECTIVE: Vital signs: Blood pressure 113/87, pulse of 68, respirations 17, temperature 98.0, saturation 99% room air. General appearance: Thin, white female in no acute distress. HEENT: Anicteric. Clear conjunctivae. Neck: Supple. No JVD. No bruit. Cardiovascular: S1, S2. Normal rate and rhythm. No murmur, rubs, or gallops. Pulmonary: She has bilateral crackles. Abdomen: Soft, nontender, nondistended. Normoactive bowel sounds. Musculoskeletal: No clubbing, cyanosis, or edema. LABORATORY: Chemistry: Sodium 137, potassium 3.5, chloride 98, bicarb 25, BUN 16, creatinine 0.8, glucose 118. WBC 9.98, hemoglobin 11.3, hematocrit of 34.0, platelets of 115,000. Chest x- ray today showed a slightly less dense nodular focus at the right costophrenic angle and small pleural effusion with adjacent atelectasis or infiltrate, stable. Sputum culture has been negative so far. Blood culture has no growth in 48 hours. ASSESSMENT AND PLAN: This is a 76-year-old white female admitted to the hospital for weakness, cough, and lethargy. 1. Possible pneumonia. We will keep the patient on IV antibiotics for now. If the culture remains negative tomorrow, we will switch her over to oral and will probably discharge the patient home if she continues to improve at this rate. 2. Neutropenic fever, has resolved. 3. Left lower extremity deep vein thrombosis. The patient is on Coumadin. Will check her INR again tomorrow. 4. Status post lung cancer. Dr. Tsai is following. 5. Electrolyte abnormality. We will continue to follow. 6. Hypothyroidism. Continue Synthroid. 7. Deep vein thrombosis prophylaxis. The patient is on Coumadin. 8. Code status. The patient is a full code.
--- NOTE | 2016-07-21 15:32 | EKG Report ---
Test Performed on : 07/18/2016 10:28:40 PM Test Reason : AMS Blood Pressure : / mmHG Vent. Rate : 070 BPM Atrial Rate : 220 BPM P-R Int : 000 ms QRS Dur : 176 ms QT Int : 488 ms P-R-T Axes : 000 -65 124 degrees QTc Int : 527 ms Ventricular-paced rhythm Abnormal ECG When compared with ECG of 30-MAY-2013 13:02, Vent. rate has decreased BY 39 BPM Unconfirmed Result
[2016-07-21] MEDS ORDERED: HEPARIN ONE (16:48)
--- NOTE | 2016-07-22 10:53 | DISCHARGE SUMMARY ---
ADMISSION DATE: 07/18/2016 DISCHARGE DATE: 07/21/2016 PRIMARY CARE PHYSICIAN: Mary Shah MD. ONCOLOGIST: Dr. Oralia Tsai. DISCHARGE DIAGNOSES: 1. Possible pneumonia. 2. Neutropenic fever. 3. Lower extremity deep venous thrombosis on the left. 4. Lung cancer. 5. Hypothyroidism. 6. Hypertension. 7. History of gout. 8. Hyperlipidemia. DISCHARGE MEDICATIONS: 1. Coreg 3.125 one tablet p.o. b.i.d. 2. Levothyroxine 50 mcg p.o. daily. 3. Allopurinol 100 mg p.o. daily. 4. Phenergan 25 mg t.i.d. p.r.n. 5. Ultram 50 mg p.o. q.4 p.r.n. 6. Pravachol 40 mg p.o. at bedtime. 7. Lasix 60 mg p.o. p.r.n. 8. Luvox 50 mg p.o. b.i.d. 9. Trazodone 150 mg at bedtime. 10. Coumadin 2.5 mg p.o. daily. 11. Omeprazole 40 mg p.o. at bedtime. 12. Lisinopril 5 mg p.o. daily. 13. Ativan 0.5 mg b.i.d. 14. Metolazone 5 mg p.o. as directed. 15. Tylenol 500 mg p.o. p.r.n. for pain. 16. Multivitamin one tablet p.o. daily. 17. Voltaren 1% gel 4 times a day in the affected area. 18. Neurontin 600 mg p.o. t.i.d. 19. Levaquin 750 daily. SIGNIFICANT LABORATORY AND IMAGING: Chest x-ray today shows slightly less dense and nodular focus on the right costophrenic angle, otherwise stable. LABORATORY: At discharge, her sodium 137, potassium 3.5, chloride 98, bicarb 25, BUN 16, creatinine 0.8, glucose of 118. WBC 9.98, hemoglobin 11.3, hematocrit of 34, platelets 115,000. HOSPITAL COURSE: The patient is a 76-year-old, white female with a history of lung cancer, on chemotherapy. Presented to the emergency room with decreasing energy and coughing for several days. The patient admitted to our service for a low grade fever with a WBC of 1.77. She was admitted for neutropenia and was started on the broad-spectrum antibiotics because of the possible infiltrates on her x-ray. Culture was sent. Cultures have remained negative thus far. Her WBC has been improving. Symptomatically, the patient had been doing well. She denied having any recurrent cough. The patient feels back at her baseline. I suspect her acute illness may be due to chemotherapy. I discussed with Dr. Tsai today. Dr. Tsai would like for to be on the antibiotics for another 5 days but that is okay from her standpoint for the patient to go home. The patient is very eager to go home. She appears to be comfortable. We will discharge the patient home today with 5 more days of Levaquin. CONDITION: Stable and improving. ACTIVITY: As tolerated. FOLLOWUP: The patient can follow up with her PCP in 1-2 weeks. TIME SPENT: Total time discharging this patient was 35 minutes.
--- NOTE | 2016-08-19 20:21 | DISCHARGE SUMMARY ---
ADMISSION DATE: 07/19/2016 DISCHARGE DATE: 07/21/2016 DISCHARGE SUMMARY ADDENDUM: The patient had pneumonia but unable to determine the bacteremia.
== END 2016-07-21 17:11 | disposition home or self-care (01) | DRG 194 ==
LOC: EDBD → ED 22:23 → 3N 07-19 03:03
PROVIDERS: ATTEND Internal Medicine
DX: J18.9 Pneumonia, unspecified organism (principal); I82.402 Acute embolism and thrombosis of unspecified deep veins of left lower extremity; D70.1 Agranulocytosis secondary to cancer chemotherapy; C34.32 Malignant neoplasm of lower lobe, left bronchus or lung; E11.9 Type 2 diabetes mellitus without complications; R50.81 Fever presenting with conditions classified elsewhere; J20.9 Acute bronchitis, unspecified; E83.42 Hypomagnesemia; Z95.0 Presence of cardiac pacemaker; Z79.01 Long term (current) use of anticoagulants; Z79.899 Other long term (current) drug therapy; Z90.2 Acquired absence of lung [part of]; Z86.718 Personal history of other venous thrombosis and embolism; E87.6 Hypokalemia; F41.9 Anxiety disorder, unspecified; E03.9 Hypothyroidism, unspecified; Z85.72 Personal history of non-Hodgkin lymphomas; E78.5 Hyperlipidemia, unspecified; T45.1X5A Adverse effect of antineoplastic and immunosuppressive drugs, initial encounter
CPT/HCPCS: 70450; 71010; 71020; 80048; 80053; 81001; 82140; 82550; 82948; 83605; 83690; 83735; 84484; 85025; 85610; 85730; 87040; 87070; 87205; 93005; 94640; 94761; 94799; 96365; 96375; G0480; J1447; J2185; J2270; J2405; J3475; J7030; 80324; 80345; 80346; 80349; 80353; 80358; 80361; 80365; 83992; 97116-GP

== ENCOUNTER 2016-09-05 11:53 | Inpatient (IN) | payer OTHER ==
--- NOTE | 2016-09-05 13:18 | Diag Imaging Result Document ---
PROCEDURE NAME: CHEST-2 VIEWS - 09/05/2016 CHEST X-RAY, 2 VIEWS: COMPARISON: 07/21/2016. FINDINGS: There appears to be an ill-defined developing infiltrate in the right upper lobe. Stable biventricular pacemaker and mild cardiomegaly. Stable chest port. Stable mass in the lateral right lung base. Stable left basilar consolidation and/or effusion. IMPRESSION: Developing infiltrate in the right upper lobe suspicious for pneumonia.
--- NOTE | 2016-09-05 13:22 | Diag Imaging Result Document ---
PROCEDURE NAME: HEAD W/O CONTRAST - 09/05/[address]: A CT dose reduction protocol was used. COMPARISON: 07/18/2016. FINDINGS: There is stable mild periventricular white matter chronic microvascular disease. No intracranial mass or hemorrhage. There is a stable oval smooth density at a right ethmoid sinus that is causing some remodeling and expansion of the sinus byrne and the medial right orbital wall. This measures 19 x 12 mm in AP and lateral dimensions. This is also stable from the PET scan of 01/30/2016 and is probably a benign entity such as a mucocele. IMPRESSION: No acute disease or change from prior. [facility]
[2016-09-05 13:37] LABS: MANUAL DIFF NEEDED? NO
--- NOTE | 2016-09-05 13:38 | PROVIDER DOCUMENTATION ---
HPI-General Adult - General Chief Complaint: Abnormal Lab[s] Stated Complaint: BLOOD COUNT HIGH/CANCER Time Seen by Provider: 09/05/16 12:21 Source: patient, family Allergies/Adverse Reactions: Patient Allergies Allergy/AdvReac Type Severity Reaction Status Date / Time amoxicillin trihydrate * AdvReac Intermediate NAUSEA/VOMI Verified 09/05/16 12: 53 [From Augmentin] TING codeine [Codeine] AdvReac Intermediate NAUSEA/VOMI Verified 09/05/16 12:53 TING etodolac [From Lodine] AdvReac Intermediate NAUSEA/VOMI Verified 09/05/16 12:53 TING potassium clavulanate * AdvReac Intermediate NAUSEA/VOMI Verified 09/05/16 12:53 [From Augmentin] TING pseudoephedrine AdvReac Intermediate NAUSEA/VOMI Verified 09/05/16 12:53 TING simvastatin [From Zocor] AdvReac Intermediate NAUSEA/VOMI Verified 09/05/16 12: 53 TING zolpidem tartrate * AdvReac Intermediate NAUSEA/VOMI Verified 09/05/16 12:53 [From Ambien] TING Home Medications: Home Medication List Medication Instructions Recorded Confirmed Last Taken Type Allopurinol 300 mg PO DAILY 03/03/12 09/05/16 02/13/16 05:00 History Carvedilol [Coreg] 3.125 mg PO BID 03/03/12 09/05/16 02/13/16 05:00 History Fluvoxamine [Luvox] 50 mg PO BID 03/03/12 09/05/16 02/13/16 05:00 History Furosemide [Lasix] 60 mg PO DAILY PRN PRN 03/03/12 09/05/16 02/12/16 History Levothyroxine [Synthroid] 50 microgm PO DAILY 03/03/12 09/05/16 02/13/16 05:00 History Pravastatin Sodium [Pravachol] 10 mg PO DAILY 03/03/12 09/05/16 02/12/16 History Promethazine [Phenergan] 25 mg PO TID PRN PRN 03/03/12 09/05/16 04/25/13 History Tramadol [Ultram] 50 mg PO Q4H PRN PRN 03/03/12 09/05/16 02/13/16 05:00 History Trazodone HCl 150 mg PO QHS 12/08/12 09/05/16 02/12/16 History Warfarin Sodium [Coumadin] 2.5 mg PO DAILY 12/08/12 09/05/16 02/08/16 History Omeprazole 40 mg PO HS 02/26/13 09/05/16 02/13/16 05:00 History Lisinopril 5 mg PO DAILY 05/30/13 09/05/16 02/13/16 05:00 History Lorazepam [Ativan] 0.5 mg PO BID 11/16/14 09/05/16 02/13/16 05:00 History Acetaminophen [Tylenol] 500 mg PO PRN PRN 12/28/14 09/05/16 Unknown History Metolazone [Zaroxolyn] 5 mg PO DIRECTED 12/28/14 09/05/16 Unknown History Gabapentin [Neurontin] 600 mg PO TID 02/13/16 09/05/16 02/13/16 05:00 History Vit B6/Me-Thfolate/Me-B12/Ala 1 each PO DAILY 02/13/16 09/05/16 Unknown History [Podiapn Capsule] Erlotinib HCl [Tarceva] 100 mg PO DAILY 09/05/16 09/05/16 Unknown History - History of Present Illness -Gen Adult Nature of Presenting Problems: 76 yo with 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 Referred for further evaluation because of elevated INR ( on warfarin ) and confusion increasing in the last week. On tarceva for chemotherapy. Had elevated INR last week and warfarin stopped but somehow pt restarted( may be because of confusion). Location of Pain/Injury: reports: none Pain Radiation: reports: no radiation Review of Systems - Adult - REVIEW OF SYSTEMS - ADULT Constitutional: reports: no symptoms reported Eyes: reports: no symptoms reported Ears, Nose, Mouth & Throat: reports: no symptoms reported Cardiovascular: reports: no symptoms reported Respiratory: reports: no symptoms reported Gastrointestinal: reports: no symptoms reported Genitourinary: reports: no symptoms reported Musculoskeletal: reports: no symptoms reported Past History - Adult - PAST MEDICAL HISTORY-ADULT Review of Records: reports: Old Records Reviewed, Nursing Assessment Review, Medications Reviewed Major Childhood Illnesses: reports: denies history Cardiovascular: reports: pacemaker Respiratory: reports: cancer Endocrine/Immune: reports: Diabetes, thyroid disorder - PRIOR SURGERIES/PROCEDURES Surgical/Procedure History: reports: other (partial lung resection l lung- tumor ) - IMMUNIZATION STATUS Childhood Immunizations: See Nurse Assessment Flu Vaccine: See Nurse Assessment Physical Exam-General - PHYSICAL EXAM-ADULT Initial Vital Signs Reviewed: Yes - CONSTITUTIONAL General Appearance: alert, no apparent distress - EYES Eyes: PERRL/EOMI - HEAD, EARS, NOSE, MOUTH & THROAT HENMT: normal ENT inspection - NECK Neck: non-tender, full range of motion, supple, normal inspection - RESPIRATORY Respiratory: chest non-tender, lungs clear, other (pacer L , port R upper chest) - CARDIOVASCULAR Cardiovascular: regular rate, rhythm, no edema, no gallop - GASTROINTESTINAL (ABDOMEN) Abdominal Exam: normal bowel sounds, non tender, soft - MUSCULOSKELETAL Back Exam: normal inspection, no CVA tenderness Extremity: normal range of motion, non-tender - SKIN Integumentary: normal color, normal turgor, warm/dry - NEUROLOGIC Neurologic: grossly normal, no motor/sensory deficits Progress - PLAN OF CARE/RESULTS Progress/Plan/Lab Results: Laboratory Tests 09/05/16 09/05/16 09/05/16 13:25 13:25 13:30 WBC 5.97 RBC 3.97 L Hgb 12.5 Hct 37.7 MCV 95.0 MCH 31.5 H MCHC 33.2 RDW Std Deviation 15.4 H Plt Count 224 MPV 10.6 H Neut % (Auto) 57.3 Lymph % (Auto) 27.0 [place] % (Auto) 10.1 H Eos % (Auto) 4.9 Baso % (Auto) 0.7 Neut # (Auto) 3.43 Lymph # (Auto) 1.61 [place] # (Auto) 0.60 H Eos # (Auto) 0.29 Baso # (Auto) 0.04 PT INR PTT (Actin FS) Sodium 135 L Potassium 3.0 L Chloride 90 L Carbon Dioxide 31 Anion Gap 14 BUN 14 Creatinine 0.7 Estimated GFR/1.73 m2 > 60 BUN/Creatinine Ratio 20 Glucose 80 Calculated Osmolality 270 Calcium 8.9 Total Bilirubin 1.10 H AST 36 H ALT 26 Alkaline Phosphatase 174 H Total Protein 6.6 Albumin 3.3 L Globulin 3.3 Albumin/Globulin Ratio 1.0 Urine Source CLEAN CATCH Urine Color YELLOW Urine Turbidity CLEAR Urine pH 7.0 Ur Specific [place] 1.007 Urine Protein NEGATIVE Ur Glucose (Stick) NEGATIVE Ur Ketones (Stick) NEGATIVE Urine Blood NEGATIVE Urine Nitrite NEGATIVE Urine Bilirubin NEGATIVE Urobilinogen Dipstick NORMAL Urine Leukocytes TRACE A Urine WBC (Auto) <10 Urine RBC (Auto) <10 U Epithel Cells (Auto) <10 Urine Bacteria (Auto) NEGATIVE 09/05/16 14:48 WBC RBC Hgb Hct MCV MCH MCHC RDW Std Deviation Plt Count MPV Neut % (Auto) Lymph % (Auto) [place] % (Auto) Eos % (Auto) Baso % (Auto) Neut # (Auto) Lymph # (Auto) [place] # (Auto) Eos # (Auto) Baso # (Auto) PT > 100.0 H INR > 11.25 H* PTT (Actin FS) 90.6 H Sodium Potassium Chloride Carbon Dioxide Anion Gap BUN Creatinine Estimated GFR/1.73 m2 BUN/Creatinine Ratio Glucose Calculated Osmolality Calcium Total Bilirubin AST ALT Alkaline Phosphatase Total Protein Albumin Globulin Albumin/Globulin Ratio Urine Source Urine Color Urine Turbidity Urine pH Ur Specific [place] Urine Protein Ur Glucose (Stick) Ur Ketones (Stick) Urine Blood Urine Nitrite Urine Bilirubin Urobilinogen Dipstick Urine Leukocytes Urine WBC (Auto) Urine RBC (Auto) U Epithel Cells (Auto) Urine Bacteria (Auto) Orders Category Date Time Status CHEST-2 VIEWS [RAD] Stat Exams 09/05/16 12:23 Draft HEAD W/O CONTRAST [CT] Stat Exams 09/05/16 13:01 Draft CBC WITH ELECTRONIC DIFF [HEME] Stat Lab 09/05/16 13:25 Completed COMPREHENSIVE METABOLIC PANEL [CHEM] Stat Lab 09/05/16 13:25 Completed PROTIME WITH INR [COAG] Stat Lab 09/05/16 14:48 Completed PTT [COAG] Stat Lab 09/05/16 14:48 Completed URINALYSIS [URINALYSIS] Stat Lab 09/05/16 13:30 Completed CefTRIAXONE 1 GM/NS [Rocephin 1 gm/Ns] 50 ml Med 09/05/16 15:10 Discontinued IV NOW Phytonadione [Vitamin K] Med 09/05/16 16:01 Discontinued 10 mg PO NOW ONE Potassium Chloride E.r. [Klor-Con] Med 09/05/16 15:06 Discontinued 40 meq PO NOW ONE EKG [EKG] Stat Ther 09/05/16 12:23 Draft Vital Signs Temp Pulse Resp BP Pulse Ox 09/05/16 15:47 69 16 119/66 92 L 09/05/16 14:22 70 18 108/56 100 09/05/16 12:06 97.4 F L 70 18 94/63 100 amoxicillin trihydrate * [From Augmentin] Adverse Reaction (Intermediate, Verified 09/05/16 12:53) NAUSEA/VOMITING codeine [Codeine] Adverse Reaction (Intermediate, Verified 09/05/16 12:53) NAUSEA/VOMITING etodolac [From Lodine] Adverse Reaction (Intermediate, Verified 09/05/16 12:53) NAUSEA/VOMITING potassium clavulanate * [From Augmentin] Adverse Reaction (Intermediate, Verified 09/05/16 12:53) NAUSEA/VOMITING pseudoephedrine Adverse Reaction (Intermediate, Verified 09/05/16 12:53) NAUSEA/VOMITING simvastatin [From Zocor] Adverse Reaction (Intermediate, Verified 09/05/16 12:53 ) NAUSEA/VOMITING zolpidem tartrate * [From Ambien] Adverse Reaction (Intermediate, Verified 09/05 12:53) NAUSEA/VOMITING Allopurinol 300 mg PO DAILY 03/03/12 Carvedilol [Coreg] 3.125 mg PO BID 03/03/12 Fluvoxamine [Luvox] 50 mg PO BID 03/03/12 Furosemide [Lasix] 60 mg PO DAILY PRN PRN 03/03/12 Levothyroxine [Synthroid] 50 microgm PO DAILY 03/03/12 Pravastatin Sodium [Pravachol] 10 mg PO DAILY 03/03/12 Promethazine [Phenergan] 25 mg PO TID PRN PRN 03/03/12 Tramadol [Ultram] 50 mg PO Q4H PRN PRN 03/03/12 Trazodone HCl 150 mg PO QHS 12/08/12 Warfarin Sodium [Coumadin] 2.5 mg PO DAILY 12/08/12 Omeprazole 40 mg PO HS 02/26/13 Lisinopril 5 mg PO DAILY 05/30/13 Lorazepam [Ativan] 0.5 mg PO BID 11/16/14 Acetaminophen [Tylenol] 500 mg PO PRN PRN 12/28/14 Metolazone [Zaroxolyn] 5 mg PO DIRECTED 12/28/14 Gabapentin [Neurontin] 600 mg PO TID 02/13/16 Vit B6/Me-Thfolate/Me-B12/Ala [Podiapn Capsule] 1 each PO DAILY 02/13/16 Erlotinib HCl [Tarceva] 100 mg PO DAILY 09/05/16 I&O 09/04/16 09/05/16 09/06/16 06:59 06:59 06:59 Output Total 25 Balance -25 Laboratory 09/05/16 09/05/16 09/05/16 14:48 13:30 13:25 WBC RBC Hgb Hct MCV MCH MCHC RDW Std Deviation Plt Count MPV Neut % (Auto) Lymph % (Auto) [place] % (Auto) Eos % (Auto) Baso % (Auto) Neut # (Auto) Lymph # (Auto) [place] # (Auto) Eos # (Auto) Baso # (Auto) PT > 100.0 H INR > 11.25 H* PTT (Actin FS) 90.6 H Sodium 135 L Potassium 3.0 L Chloride 90 L Carbon Dioxide 31 Anion Gap 14 BUN 14 Creatinine 0.7 Estimated GFR/1.73 m2 > 60 BUN/Creatinine Ratio 20 Glucose 80 Calculated Osmolality 270 Calcium 8.9 Total Bilirubin 1.10 H AST 36 H ALT 26 Alkaline Phosphatase 174 H Total Protein 6.6 Albumin 3.3 L Globulin 3.3 Albumin/Globulin Ratio 1.0 Urine Source CLEAN CATCH Urine Color YELLOW Urine Turbidity CLEAR Urine pH 7.0 Ur Specific [place] 1.007 Urine Protein NEGATIVE Ur Glucose (Stick) NEGATIVE Ur Ketones (Stick) NEGATIVE Urine Blood NEGATIVE Urine Nitrite NEGATIVE Urine Bilirubin NEGATIVE Urobilinogen Dipstick NORMAL Urine Leukocytes TRACE A Urine WBC (Auto) <10 Urine RBC (Auto) <10 U Epithel Cells (Auto) <10 Urine Bacteria (Auto) NEGATIVE 09/05/16 13:25 WBC 5.97 RBC 3.97 L Hgb 12.5 Hct 37.7 MCV 95.0 MCH 31.5 H MCHC 33.2 RDW Std Deviation 15.4 H Plt Count 224 MPV 10.6 H Neut % (Auto) 57.3 Lymph % (Auto) 27.0 [place] % (Auto) 10.1 H Eos % (Auto) 4.9 Baso % (Auto) 0.7 Neut # (Auto) 3.43 Lymph # (Auto) 1.61 [place] # (Auto) 0.60 H Eos # (Auto) 0.29 Baso # (Auto) 0.04 PT INR PTT (Actin FS) Sodium Potassium Chloride Carbon Dioxide Anion Gap BUN Creatinine Estimated GFR/1.73 m2 BUN/Creatinine Ratio Glucose Calculated Osmolality Calcium Total Bilirubin AST ALT Alkaline Phosphatase Total Protein Albumin Globulin Albumin/Globulin Ratio Urine Source Urine Color Urine Turbidity Urine pH Ur Specific [place] Urine Protein Ur Glucose (Stick) Ur Ketones (Stick) Urine Blood Urine Nitrite Urine Bilirubin Urobilinogen Dipstick Urine Leukocytes Urine WBC (Auto) Urine RBC (Auto) U Epithel Cells (Auto) Urine Bacteria (Auto) - REASSESSMENT Reassessment #1 Time Reassessed: 16:00 (INR > 11.5. Given po vitamin. Will admit when able( on hold currently. Also started ceftriaxone for possible pneumonia.) Reassessment Comment: await availability of admisssion - XRAY 1 XRAY Study: Chest Impression: Abnormal XRAY Interpretation: R lower lobe mass, evolving RUL infiltrate - CONSULTS/PCP/HOSPITALIST Notification #1 *Consult/PCP/Hospitalist*: Dr Begum Time Discussed: 17:30 Consult Disposition: Admit Departure - Departure Time of Disposition Order: 16:10 DIAGNOSIS: Pneumonia, Elevated INR, Hypokalemia Disposition: ADMITTED INPATIENT 09 Certified Medical Emergency: Emergent Condition: Serious
[2016-09-05 13:41] LABS: BASO% 0.7 % (0.0-0.8); EOS# 0.29 X1000 (0.0-0.7); EOS% 4.9 % (0.0-10.0); HEMATOCRIT 37.7 % (37.0-47.0); HEMOGLOBIN 12.5 g/dL (12.0-16.0); LYMPH# 1.61 X1000 (1.2-3.4); MCH 31.5 PG (27-31); MCHC 33.2 g/dL (33-37); MONO% 10.1 % (1.7-9.3); MPV 10.6 FL (7.4-10.4); NEUT% 57.3 % (42.2-75.2); PLT 224 X1000 (130-400); RBC 3.97 XMIL (4.2-5.4)
--- NOTE | 2016-09-05 13:49 | EKG Report ---
Test Performed on : 09/05/2016 1:31:18 PM Test Reason : ams Blood Pressure : / mmHG Vent. Rate : 070 BPM Atrial Rate : 074 BPM P-R Int : 000 ms QRS Dur : 166 ms QT Int : 494 ms P-R-T Axes : 000 -78 -03 degrees QTc Int : 533 ms Ventricular-paced rhythm Abnormal ECG When compared with ECG of 18-JUL-2016 22:28, No significant change was found Unconfirmed Result
[2016-09-05 13:55] LABS: AGAP 14; ALBUMIN 3.3 g/dL (3.5-5.0); ALKALINE PHOSPHATASE 174 U/L (32-104); BUN 14 mg/dL (8-22); CALCIUM 8.9 mg/dL (8.8-10.2); CHLORIDE 90 mmol/L (98-107); COSMO 270; GOT 36 U/L (10-30); GPT 26 U/L (10-36); SODIUM 135 mmol/L (136-145); TCO2 31 mmol/L (25-35); TOTAL PROTEIN 6.6 g/dL (6.3-8.3)
[2016-09-05 14:12] LABS: URINE MICRO REVIEW NEEDED? NO; URINE SOURCE CLEAN CATCH
[2016-09-05 14:19] LABS: BILIRUBIN URINE NEGATIVE (NEGATIVE); BLOOD URINE NEGATIVE (NEGATIVE); COLOR YELLOW; GLUCOSE URINE NEGATIVE (NEGATIVE); LEUKOCYTES URINE TRACE (NEGATIVE); NITRITE URINE NEGATIVE (NEGATIVE); PROTEIN URINE NEGATIVE (NEGATIVE); SP GRAVITY URINE 1.007; TURBIDITY URINE CLEAR (CLEAR); UROBILINOGEN URINE NORMAL (NORMAL)
[2016-09-05 14:23] LABS: UR EPITHELIAL CELLS <10 /HPF (<10); URINE BACTERIA NEGATIVE /HPF; URINE RBC <10 /HPF (<10); URINE WBC <10 /HPF (<10)
--- NOTE | 2016-09-05 14:38 | ED EKG INTERP ---
EKG Interpretation - EKG Time of EKG reading by physician:: 13:13 EKG Read and Signed by:: Bina Nascimento EKG Interpretation (*Must complete 3 of following elements*): Abnormal Rate: 70 Rhythm: Ventricular-paced rhythm <Marina Hernandez - Last Filed: 09/05/16 14:37> Attestation - Scribe Verification/Attestation Scribe:: Marina Hernandez Acting as Scribe for:: Bina Nascimento Scribe documention review:: This chart was documented by a scribe and accurately reflects the service the provider performed and the decisions made by the provider. <Marina Hernandez - Last Filed: 09/05/16 14:37> Physician Attestation - Physician Attestation I, the provider, attest to the following statement:: Cheryl Betts Physician documentation Attestation:: This documentation recorded by the scribe accurately reflects the service I personally performed and the decisions made by me. <Cheryl Betts - Last Filed: 09/05/16 18:01>
[2016-09-05] MEDS ORDERED: KLOR-CON PO ONE (15:06)
[2016-09-05] MEDS ORDERED: ROCEPHIN 1 GM/NS 50 ML IV ONE (15:10)
[2016-09-05 16:00] LABS: INR > 11.25
[2016-09-05 16:01] LABS: PTT 90.6 Seconds (22.0-36.0)
[2016-09-05] MEDS ORDERED: VITAMIN K PO ONE (16:01)
[2016-09-05] MEDS ORDERED: ZITHROMAX 500 MG/NS 250 ML IV ONE (16:35)
[2016-09-05 18:52] LABS: PROTIME > 100.0 Seconds (9.2-11.7)
--- NOTE | 2016-09-05 19:37 | HISTORY AND PHYSICAL ---
PRIMARY CARE PROVIDER: Mary Shah M.D. PRIMARY ONCOLOGIST: Oralia Tsai M.D. CHIEF COMPLAINT: Elevated INR. HISTORY OF PRESENT ILLNESS: Ms. Sepulveda is a 76-year-old, female who has been treated for lung cancer by Dr. Tsai. She has a history of DVTs and has been receiving Coumadin for that. Apparently there could be a medication interaction between Coumadin and Tarceva. Her INR was found to be elevated at 11.25, her PTT was 90.6. The patient was not supposed to be taking her Coumadin at this time but she was unsure if she was still taking it. She was going in for her Coumadin INR check at Dr. Tsai today when it was found to be elevated. She is here for INR correction. In the interim she was found to have hypokalemia and a right upper lobe pneumonia. We will transfer to [place]. Dr. Tsai is okay with this. She will receive vitamin K and antibiotics. PAST MEDICAL HISTORY: Hypothyroidism, anxiety, depression, lung cancer, congestive heart failure, left leg DVT, history of ventricular tachycardia with pacemaker placement. She actually states that she was last shocked about a month ago. PAST SURGICAL HISTORY: Left lower lobectomy but still has cancer on the right. She has a permanent pacemaker with defibrillator. PAST SOCIAL HISTORY: Denies tobacco, alcohol or illicit drug use. FAMILY HISTORY: Noncontributory. ALLERGIES: Amoxicillin, codeine, Lodine, Augmentin, pseudoephedrine, Zocor, Ambien. HOME MEDICATIONS: Coumadin 2.5 mg p.o. daily, vitamin B complex 1 tab p.o. daily, trazodone 150 mg p.o. nightly, Ultram 50 mg p.o. q.4 hours as needed, Phenergan 25 mg p.o. t.i.d. p.r.n., Pravachol 10 mg p.o. daily, omeprazole 40 mg p.o. nightly, Zaroxolyn 5 mg p.o. as needed, Ativan 0.5 mg p.o. twice daily, lisinopril 5 mg p.o. daily, Synthroid 50 mcg p.o. daily , Neurontin 600 mg p.o. t.i.d., Lasix 60 mg p.o. daily p.r.n., Luvox 50 mg p.o. twice daily, Tarceva 100 mg p.o. daily, Coreg 3.125 mg p.o. twice daily, allopurinol 300 mg p.o. daily, and Tylenol p.r.n. REVIEW OF SYSTEMS: Fourteen point review of systems were complete and all were negative except for those mentioned in above HPI. LABORATORY STUDIES: White blood cells 5000, hemoglobin 12, hematocrit 37, platelet count 224,000. INR greater than 11.25. PTT is 90.6. Sodium 135, potassium 3.00, BUN 14, creatinine 0.7, glucose 80, calcium 8.9. Total bilirubin is 1.1, AST 36, ALT 26, albumin 3.3, trace leukocyte, IMAGING: EKG: Ventricularly paced at 70. Head CT: Negative for any acute findings. Chest x-ray: Infiltrate in the right upper lobe suspicious for pneumonia. PHYSICAL EXAMINATION: VITAL SIGNS: Temperature 97.4 degrees, heart rate 70, respiratory rate 14, blood pressure 109/49, O2 saturation 94%. GENERAL: Ms. Sepulveda is a 76-year-old, female. Able to answer all questions appropriately. She is in no distress. HEENT: Atraumatic, normocephalic. Pupils equal, round, reactive to light. Thin hair secondary to chemotherapy. Mucous membranes are dry. Extraocular movements intact. Pupils equal, round, reactive. NECK: No JVD or carotid bruits noted. CARDIOVASCULAR: S1, S2. Regular rate and rhythm. No rubs, gallops, murmurs. PULMONARY: Coarse bilaterally. GASTROINTESTINAL: Abdomen soft, nontender, nondistended, positive bowel sounds x4. EXTREMITIES: No edema noted. +2 dorsalis and radial pulses. NEUROLOGIC: Alert and oriented x4. Moves all extremities equally. ASSESSMENT AND PLAN: 1. Supratherapeutic INR. Received vitamin K. We will do daily INRs and monitor for signs of bleeding. 2. Right upper lobe infiltrate for which she will receive Rocephin and azithromycin, but she is afebrile and her white count is normal. 3. Hypokalemia. Received potassium supplementation. 4. Hypothyroidism. Continue Synthroid. 5. Lung cancer followed by Dr. Tsai as outpatient. 6. History of ventricular tachycardia. She has got a pacemaker and the last time it went off was a month ago. Currently is pacing 100%. 7. History of deep vein thrombosis. This is reason she is on Coumadin. Coumadin will be held. 8. Gastrointestinal prophylaxis. Proton pump inhibitor. 9. Deep venous thrombosis prophylaxis. SCDs. Patient seen and examined. Agree with PRODUCTION ADMINISTRATIVE ASSISTANT note. It reflects my assessment and plan. Dictated by ANTHONY Hopkins for Vitor Scanlon MD MTDD
[2016-09-05] MEDS ORDERED: TYLENOL PO PRN (22:26)
[2016-09-05] MEDS ORDERED: PRILOSEC PO SCH (22:26)
[2016-09-05] MEDS ORDERED: ULTRAM PO PRN (22:26)
[2016-09-05] MEDS ORDERED: DESYREL PO SCH (22:26)
[2016-09-05] MEDS ORDERED: NS 1,000 ML IV SCH (22:26)
[2016-09-05] MEDS ORDERED: PHENERGAN PO PRN (22:26)
[2016-09-05] MEDS: COREG PO SCH (23:23)
[2016-09-05] MEDS: ATIVAN PO SCH (23:31)
[2016-09-06 06:03] LABS: MANUAL DIFF NEEDED? NO
[2016-09-06 06:07] LABS: BASO% 0.8 % (0.0-0.8); EOS# 0.25 X1000 (0.0-0.7); EOS% 5.1 % (0.0-10.0); HEMATOCRIT 34.9 % (37.0-47.0); HEMOGLOBIN 11.5 g/dL (12.0-16.0); IMM GRAN# 0.01 X1000 (0.0-0.04); IMM GRAN% 0.2 % (0.0-0.5); LYMPH# 1.61 X1000 (1.2-3.4); LYMPH% 32.8 % (20.5-51.1); MCH 30.7 PG (27-31); MCV 93.3 FL (81-99); MONO# 0.53 X1000 (0.11-0.59); MONO% 10.8 % (1.7-9.3); MPV 9.7 FL (7.4-10.4); NEUT% 50.3 % (42.2-75.2); PLT 189 X1000 (130-400); RBC 3.74 XMIL (4.2-5.4)
[2016-09-06 06:29] LABS: AGAP 10; ALBUMIN 3.1 g/dL (3.5-5.0); ALKALINE PHOSPHATASE 147 U/L (32-104); BUN 15 mg/dL (8-22); CALCIUM 8.9 mg/dL (8.8-10.2); CHLORIDE 103 mmol/L (98-107); COSMO 283; GOT 31 U/L (10-30); GPT 21 U/L (10-36); POTASSIUM 3.2 mmol/L (3.5-5.1); SODIUM 142 mmol/L (136-145); TCO2 29 mmol/L (25-35); TOTAL PROTEIN 5.8 g/dL (6.3-8.3)
[2016-09-06 06:40] LABS: INR 8.29 (0.86-1.15)
[2016-09-06] MEDS ORDERED: SYNTHROID PO SCH (07:00)
[2016-09-06] MEDS ORDERED: LUVOX PO SCH (09:00)
[2016-09-06] MEDS ORDERED: PRINIVIL PO SCH (09:00)
[2016-09-06] MEDS ORDERED: ZYLOPRIM PO SCH (09:00)
[2016-09-06] MEDS ORDERED: PATIENT'S OWN MED PO SCH ×2 (09:00)
[2016-09-06] MEDS: NEURONTIN PO SCH ×3 (10:21→17:05)
[2016-09-06] MEDS: ATIVAN PO SCH (10:21)
[2016-09-06] MEDS: COREG PO SCH (10:21)
[2016-09-06] MEDS ORDERED: VITAMIN K PO ONE ×2 (11:16→18:59)
[2016-09-06] MEDS ORDERED: OMNICEF PO SCH (11:30)
--- NOTE | 2016-09-06 13:55 | PROGRESS NOTE ---
DATE: 09/06/2016 SUBJECTIVE: The patient is without any new complaints. States she is feeling fine. Denies any cough congestion currently. Denies any chest pain or palpitations. PHYSICAL EXAMINATION: Vital Signs: She is afebrile. Vital signs stable. Temperature 98 degrees, pulse 55, respiratory 18, blood pressure 117/67. General: Patient is awake, alert, oriented. She is in no respiratory distress. She is pleasant to talk with. Speech is regular. Memory is intact. HEENT: Normocephalic, atraumatic. [place]. Neck: Supple. CV: Regular rate. Chest: Relatively clear with bilateral rhonchi. No wheezing. Abdomen: Soft. LABORATORY DATA: INR 8.29. Chest x-ray, questionable right upper lobe pneumonia. ASSESSMENT: 1. Suprapubic INR. Patient is hypercoagulable secondary to Coumadin. We will restart vitamin K. Patient desires to go on Xarelto after INR is better. Her currently is on Xarelto. 2. Right upper lobe pneumonia. Continue azithromycin and change to p.o. Omnicef. 3. Hypothyroidism. 4. Hypokalemia stable. 5. Known lung cancer for which she follows up with Dr. Tsai. PLAN: We will continue to keep patient until her INR is improved. We will give her vitamin K again this morning. We will check her INR later this afternoon. Once her INR is more reasonable she can be discharged home on Xarelto.
[2016-09-06 15:54] VITALS: BP 109/41
[2016-09-06] MEDS ORDERED: ROCEPHIN 1 GM/NS 50 ML IV SCH (17:00)
[2016-09-06] MEDS ORDERED: ZITHROMAX PO SCH (18:00)
[2016-09-06] MEDS ORDERED: ZITHROMAX 500 MG/NS 250 ML IV SCH ×2 (18:00)
[2016-09-06 18:39] LABS: PROTIME 58.2 Seconds (12.1-15.5)
[2016-09-06 18:42] LABS: INR 6.88 (0.86-1.15)
[2016-09-06] MEDS ORDERED: HYDROCORTISONE 1% CREAM TOP PRN (18:46)
[2016-09-06] MEDS ORDERED: PRAVACHOL PO SCH (21:00)
[2016-09-06] MEDS ORDERED: ZOFRAN ODT ONE (21:01)
--- NOTE | 2016-09-08 06:35 | DISCHARGE SUMMARY ---
ADMISSION DATE: 09/05/2016 DISCHARGE DATE: 09/06/2016 DISCHARGE DIAGNOSES: 1. Hypercoagulable state secondary to supratherapeutic on INR from Coumadin. 2. Right upper lobe infiltrate. 3. Hypokalemia resolved. 4. Hypothyroidism stable. 5. Lung cancer. 6. History of ventricular tachycardia. CONSULTATIONS: None. PROCEDURES: None. BRIEF HOSPITAL COURSE: The patient is a 76-year-old female who presented to the emergency department with an INR elevated at 11. It greatly decreased to 8. She was given vitamin K and it decreased to 6. She had no bleeding. She was given 1 more dose of vitamin K prior to discharge. Although would have preferred patient to stay in the hospital for another night to recheck, she was adamant that she needed to go home and that she would feel much better at home. DISPOSITION: The patient is awake and alert. She understands that should she start having any bleeding, bruising or otherwise change in her current symptoms, she would need to immediately come back to the ER. She is not take any more Coumadin. She was given a prescription for Xarelto which she will not take until Thursday, 36 hours from now. She will follow up this week with Dr. Rodriguez to have her INR rechecked to make sure that it has continued to decline as to be expected since she is no longer taking Coumadin. TIME SPENT: 35 minutes was spent in discharge planning and instructions.
== END 2016-09-06 21:26 | disposition home or self-care (01) | DRG 917 ==
LOC: ED 11:53 → P.MEDSURG 19:46
PROVIDERS: ATTEND Family Medicine
DX: T45.511A Poisoning by anticoagulants, accidental (unintentional), initial encounter (principal); J18.9 Pneumonia, unspecified organism; C34.90 Malignant neoplasm of unspecified part of unspecified bronchus or lung; T45.1X1A Poisoning by antineoplastic and immunosuppressive drugs, accidental (unintentional), initial encounter; I50.9 Heart failure, unspecified; R79.1 Abnormal coagulation profile; E87.6 Hypokalemia; E03.9 Hypothyroidism, unspecified; F41.9 Anxiety disorder, unspecified; F32.9 Major depressive disorder, single episode, unspecified; Z95.0 Presence of cardiac pacemaker; Z86.718 Personal history of other venous thrombosis and embolism; Z79.01 Long term (current) use of anticoagulants; Z90.2 Acquired absence of lung [part of]; Z79.899 Other long term (current) drug therapy
CPT/HCPCS: 70450; 71020; 80053; 81001; 85025; 85610; 85730; 93005; 94761; 94799; 96365; 96366; 96367; J0456; J0696; J7030

== ENCOUNTER 2016-10-24 14:30 | Inpatient (IN) ==
--- NOTE | 2016-10-24 15:54 | PROVIDER DOCUMENTATION ---
HPI-General Adult - General Chief Complaint: Weakness Stated Complaint: WEAKNESS Time Seen by Provider: 10/24/16 15:27 Source: patient Allergies/Adverse Reactions: Patient Allergies Allergy/AdvReac Type Severity Reaction Status Date / Time amoxicillin trihydrate * AdvReac Intermediate NAUSEA/VOMI Verified 09/05/16 12: 53 [From Augmentin] TING codeine [Codeine] AdvReac Intermediate NAUSEA/VOMI Verified 09/05/16 12:53 TING etodolac [From Lodine] AdvReac Intermediate NAUSEA/VOMI Verified 09/05/16 12:53 TING potassium clavulanate * AdvReac Intermediate NAUSEA/VOMI Verified 09/05/16 12:53 [From Augmentin] TING pseudoephedrine AdvReac Intermediate NAUSEA/VOMI Verified 09/05/16 12:53 TING simvastatin [From Zocor] AdvReac Intermediate NAUSEA/VOMI Verified 09/05/16 12: 53 TING zolpidem tartrate * AdvReac Intermediate NAUSEA/VOMI Verified 09/05/16 12:53 [From Ambien] TING Home Medications: Home Medication List Medication Instructions Recorded Confirmed Last Taken Type Allopurinol 300 mg PO DAILY 03/03/12 10/24/16 10/24/16 07:00 History 300 MG Carvedilol [Coreg] 3.125 mg PO BID 03/03/12 10/24/16 10/24/16 07:00 History 3.125 MG Furosemide [Lasix] 60 mg PO DAILY PRN 03/03/12 10/24/16 10/24/16 07:00 History 60 MG Tramadol [Ultram] 50 mg PO TID PRN PRN 03/03/12 10/24/16 10/24/16 07:00 History 50 MG Trazodone HCl 150 mg PO QHS 12/08/12 10/24/16 10/24/16 07:00 History 150 MG Omeprazole 40 mg PO DAILY@0700 02/26/13 10/24/16 10/24/16 07:00 History 40 MG Lisinopril 5 mg PO DAILY 05/30/13 10/24/16 10/24/16 07:00 History 5 MG Lorazepam [Ativan] 0.5 - 1 mg PO TID PRN PRN 11/16/14 10/24/16 10/24/16 07:00 History 0.5 - 1 MG Erlotinib HCl [Tarceva] 150 mg PO DAILY 09/05/16 10/24/16 10/24/16 07:00 History 150 MG Sodium Chloride [Saline Nasal Mist] 126 ml NS Q6H PRN PRN 09/05/16 10/24/1611/05 07:00 History 126 ML Budesonide/Formoterol Fumarate 2 puff IH BID 09/06/16 10/24/16 10/24/16 07:00 History [Symbicort 80-4.5 Mcg Inhaler] 2 PUFF Fluvoxamine [Luvox] 50 mg PO BID #0 tablet 09/06/16 10/24/16 10/24/16 07:00 Rx 50 MG Gabapentin [Neurontin] 600 mg PO TID #0 capsule 09/06/16 10/24/16 10/24/16 07: 00 Rx 600 MG Levothyroxine [Synthroid] 50 microgm PO DAILY@0700 09/06/16 10/24/16 10/24/16 07 :00 History 50 MICROGM PRAVAstatin [Pravachol] 10 mg PO QHS 09/06/16 10/24/16 10/24/16 07:00 History 10 MG Rivaroxaban [Xarelto] 20 mg PO WSUPPER #30 tablet 09/06/16 10/24/16 10/24/16 07: 00 Rx 20 MG - History of Present Illness -Gen Adult Nature of Presenting Problems: 76 y/o WF with history of lung cancer, c/o weakness for 1 week now. She takes oral chemo daily, followed by Dr. Tsai, oncologist. Last seen 3 weeks ago with no complaints. She has a chronic cough, it has changed to be more productive recently. Does not have any fever or chills. She has had weightloss since the onset of her lung cancer. Denies abdominal pain, chest pain or sob. Review of Systems - Adult - REVIEW OF SYSTEMS - ADULT Constitutional: reports: see earnest GUAN. denies: chills, fever, weight loss Eyes: reports: no symptoms reported. denies: decreased vision, blurred vision, double vision, eye pain Ears, Nose, Mouth & Throat: reports: no symptoms reported. denies: ear pain, nose pain, throat pain Cardiovascular: reports: no symptoms reported. denies: chest pain, irregular heart rate, palpitations Respiratory: reports: see HPI, cough. denies: shortness of breath, wheezing Gastrointestinal: reports: no symptoms reported. denies: abdominal pain, diarrhea, nausea, vomiting Genitourinary: reports: no symptoms reported. denies: dysuria, discharge, frequency, incontinence Musculoskeletal: reports: no symptoms reported. denies: bone pain, back pain, muscle aches Integumentary: reports: no symptoms reported. denies: rash Neurological: reports: no symptoms reported. denies: headache/migraines Psychiatric: reports: no symptoms reported Endocrine: reports: no symptoms reported Hematologic/Lymphatic: reports: no symptoms reported Allergic/Immunologic: reports: no symptoms reported All Other Systems: Reviewed and Negative Past History - Adult - PAST MEDICAL HISTORY-ADULT Review of Records: reports: Old Records Reviewed, Nursing Assessment Review, Medications Reviewed Major Childhood Illnesses: reports: denies history Cardiovascular: reports: pacemaker Respiratory: reports: cancer Gastrointestinal: reports: denies history Obstetrical/Gynecological: reports: denies history Genitourinary: reports: denies history Musculoskeletal: reports: denies history Neurological: reports: denies history Endocrine/Immune: reports: Diabetes, thyroid disorder Other Conditions: reports: denies history - PRIOR SURGERIES/PROCEDURES Surgical/Procedure History: reports: other (partial lung resection l lung- tumor ) - IMMUNIZATION STATUS Childhood Immunizations: See Nurse Assessment Flu Vaccine: See Nurse Assessment - FAMILY HISTORY Family History: reviewed, not pertinent Physical Exam-General - PHYSICAL EXAM-ADULT Initial Vital Signs Reviewed: Yes - CONSTITUTIONAL General Appearance: appears well, alert, cachetic, thin - EYES Eyes: PERRL/EOMI, pink conjunctivae - HEAD, EARS, NOSE, MOUTH & THROAT HENMT: normocephalic/atraumatic, moist mucous membranes, normal ENT inspection - NECK Neck: non-tender, full range of motion, supple, normal inspection. negative: lymphadenopathy - RESPIRATORY Respiratory: chest non-tender, lungs clear, normal breath sounds, no pleuratic chest pain, no respiratory distress, no accessory muscle use. negative: respiratory distress, decreased breath sounds, accessory muscle use, crackles, rales, rhonchi, wheezing - CARDIOVASCULAR Cardiovascular: normal peripheral pulses, regular rate, rhythm - GASTROINTESTINAL (ABDOMEN) Abdominal Exam: normal bowel sounds, non tender, soft, no organomegaly, no pulsatile mass. negative: abdominal bruit, abnormal bowel sounds, distended, guarding, rigid, rebound, tenderness - LYMPHATIC Lymphatic: no adenopathy - MUSCULOSKELETAL Extremity: normal gait Peripheral Pulses: radial (R): 2+, radial (L): 2+, dorsalis-pedis (R): 2+, dorsalis-pedis (L): 2+ - SKIN Integumentary: normal color, normal turgor, warm/dry - NEUROLOGIC Neurologic: grossly normal, no motor/sensory deficits - PSYCHIATRIC Psych/Mental Status: normal mood/affect, normal thought content, normal thought process, oriented x 3 Progress - PLAN OF CARE/RESULTS Progress/Plan/Lab Results: Vital Signs - 8 hr 10/24/16 14:40 Temperature 97.5 F L Pulse Rate 70 Respiratory Rate 14 Blood Pressure 94/47 O2 Sat by Pulse Oximetry 99 Orders Category Date Time Status Saline Loc NOW Care 10/24/16 15:28 Active CHEST-2 VIEWS [RAD] Stat Exams 10/24/16 15:47 Ordered CBC WITH ELECTRONIC DIFF [HEME] Stat Lab 10/24/16 15:28 Uncollected COMPREHENSIVE METABOLIC PANEL [CHEM] Stat Lab 10/24/16 15:28 Uncollected MAGNESIUM [CHEM] Stat Lab 10/24/16 15:28 Uncollected UA NIMS W/REFLEX CULT [URINALYSIS] Stat Lab 10/24/16 15:28 Uncollected EKG [EKG] Stat Ther 10/24/16 15:28 Ordered Result Diagrams: 10/25/16 05:15 10/25/16 05:15 - XRAY 1 XRAY: Bilateral XRAY Study: Chest Impression: Normal (stable chest. Mass in the RLL that is seen on prior films.) - CONSULTS/PCP/HOSPITALIST Notification #1 *Consult/PCP/Hospitalist*: Dr. Castillo, Internal Medicine Time Discussed: 17:54 Reason/Comments: weakness, hypomagnesemia, hypotension, uti Consult Disposition: Admit Departure - Departure Time of Disposition Decision: 17:38 DIAGNOSIS: Weakness, Hypomagnesemia Lung cancer Qualifiers: Laterality: right Lung location: lower lobe of lung Qualified Code(s): C34.31 - Malignant neoplasm of lower lobe, right bronchus or lung Hypotension Qualifiers: Hypotension type: unspecified hypotension type Qualified Code(s): I95.9 - Hypotension, unspecified Disposition: ADMITTED INPATIENT 09 Certified Medical Emergency: Emergent Condition: Stable - Critical Care Note This patient required my direct & personal management of CC.: No Attestation - Physician/ KANWAL Attestation Patient care was provided by Advanced Practice Provider:: Yes Advanced Practice Provider:: Susan Roper Advanced Practice Provider documentation review:: The Mid-level provider documentation, treatment plan and medical decision making was reviewed by the physician who agrees with all treatment and medical decision making by the MLP.
[2016-10-24 16:00] LABS: MANUAL DIFF NEEDED? NO
[2016-10-24 16:08] LABS: BASO% 0.4 % (0.0-0.8); EOS# 0.06 X1000 (0.0-0.7); EOS% 0.8 % (0.0-10.0); HEMATOCRIT 36.9 % (37.0-47.0); HEMOGLOBIN 13.1 g/dL (12.0-16.0); LYMPH% 16.3 % (20.5-51.1); MCH 33.1 PG (27-31); MCHC 35.5 g/dL (33-37); MCV 93.2 FL (81-99); MONO# 1.16 X1000 (0.11-0.59); MONO% 14.5 % (1.7-9.3); MPV 10.8 FL (7.4-10.4); PLT 211 X1000 (130-400); RBC 3.96 XMIL (4.2-5.4)
[2016-10-24 16:22] LABS: AGAP 14; ALBUMIN 3.3 g/dL (3.5-5.0); ALKALINE PHOSPHATASE 184 U/L (32-104); BUN 27 mg/dL (8-22); CALCIUM 9.9 mg/dL (8.8-10.2); CHLORIDE 95 mmol/L (98-107); COSMO 280; GOT 21 U/L (10-30); GPT 15 U/L (10-36); POTASSIUM 3.4 mmol/L (3.5-5.1); SODIUM 137 mmol/L (136-145); TCO2 28 mmol/L (25-35); TOTAL PROTEIN 6.8 g/dL (6.3-8.3)
[2016-10-24] MEDS ORDERED: NS 1,000 ML ONE (16:24)
[2016-10-24] MEDS ORDERED: NS 1,000 ML IV ONE (16:28)
[2016-10-24] MEDS ORDERED: MAGNESIUM SULFATE 2 GM/S.W.I. 2 GM/50 ML IVPB IV ONE (16:38)
[2016-10-24 16:49] LABS: URINE MICRO REVIEW NEEDED? NO; URINE SOURCE CLEAN CATCH
[2016-10-24 16:56] LABS: BILIRUBIN URINE NEGATIVE (NEGATIVE); BLOOD URINE NEGATIVE (NEGATIVE); COLOR YELLOW; GLUCOSE URINE NEGATIVE (NEGATIVE); LEUKOCYTES URINE LARGE (NEGATIVE); NITRITE URINE NEGATIVE (NEGATIVE); PH URINE 6.5; PROTEIN URINE NEGATIVE (NEGATIVE); SP GRAVITY URINE 1.009; TURBIDITY URINE CLEAR (CLEAR); UROBILINOGEN URINE NORMAL (NORMAL)
[2016-10-24 16:59] LABS: UR EPITHELIAL CELLS <10 /HPF (<10); URINE BACTERIA NEGATIVE /HPF; URINE CULTURE NEEDED? YES; URINE RBC <10 /HPF (<10); URINE WBC <10 /HPF (<10)
[2016-10-24] MEDS ORDERED: ROCEPHIN 1 GM/NS 1 GM/50 ML IVPB IV ONE (17:19)
--- NOTE | 2016-10-24 18:44 | Diag Imaging Result Document ---
PROCEDURE NAME: CHEST-2 VIEWS - 10/24/2016 CHEST, 2 VIEWS: FINDINGS: Compared with 09/05/2016. There are bibasilar opacities, which appear grossly stable. The upper lungs appear clear. The possible ill-defined right upper lobe infiltrate seen on the previous exam appears to have resolved. There is no pneumothorax identified. There is stable mild cardiomegaly. There is transvenous cardiac pacemaker again seen. Central venous catheter remains in place. IMPRESSION: Stable opacities at the bilateral lung bases compared to 09/05/2016. Correlation with clinical history and results of previous CT directed lung biopsy is recommended.
--- NOTE | 2016-10-24 19:32 | HISTORY AND PHYSICAL ---
PRIMARY CARE PHYSICIAN: Mary Shah MD ONCOLOGIST: Oralia Tsai MD CHIEF COMPLAINT: Malaise and weakness. HISTORY OF PRESENT ILLNESS: Ms. 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 She receives daily oral chemotherapy with Tarceva. She comes to us today because she has had around 1 week of symptoms consistent with failure to thrive. She has not been able to eat. She has been becoming more weak. She has been unable to ambulate well. Her gait has been unsteady. She has been coughing up clear white sputum. She has also thrown up once or twice today. She denies any overt abdominal pain, and she denies chest pain or shortness of breath. She did have a few days of diarrhea prior to admission, but she says that is since resolved. She denies any hematochezia or hematemesis. She reports a 15 pound weight loss over the past 3 months. Her weakness brought her to the hospital today. In the hospital, she had labs consistent with protein-calorie malnutrition, hypomagnesemia, hypokalemia, and mild anemia. She also has large leukocytes in her urine, which is likely consistent with a urinary tract infection. Chest x-ray shows a mass in the right lower lobe, which is consistent with her diagnosis of cancer. Otherwise, chest x-ray does not show anything acute. She is hemodynamically stable at this time, and we are going to admit her for failure to thrive. PAST MEDICAL HISTORY: 1. Adenocarcinoma of the lung, on Tarceva, followed by Dr. Tsai. 2. History of diffuse B-cell lymphoma. 3. Hypothyroidism. 4. History of DVT, on chronic anticoagulation. 5. Adriamycin-induced cardiomyopathy. 6. Systolic congestive heart failure. 7. History of ventricular tachycardia, status post pacemaker ICD. 8. Hypertension. 9. GERD. 10. Hyperlipidemia. 11. Gout. PAST SURGICAL HISTORY: She has had a lobectomy in the left lung, pacemaker, port placement. She has had sinus surgery and lower back surgery. She has had a radical lymph node dissection and a forehead lift. SOCIAL HISTORY: The patient quit smoking multiple years ago. She denies current tobacco, alcohol, or drug use. She is . Her is at the bedside. FAMILY HISTORY: Both parents with cancer, father with lung cancer and mother with renal cell carcinoma. REVIEW OF SYSTEMS: A 14-point review of systems is obtained and found to be negative with the exception of the HPI. HOME MEDICATIONS: Currently being compiled. ALLERGIES: Amoxicillin, codeine, Lodine, pseudoephedrine, Zocor, Ambien. PHYSICAL EXAMINATION: VITAL SIGNS: Blood pressure is 94/47, heart rate is 70, respiratory rate 14, and O2 saturation 99% on room air. Temperature is 97.5 degrees. GENERAL: This is a chronically ill- and frail-appearing 76-year-old female, lying in the hospital bed, in no acute distress. NEUROLOGIC: The patient is awake, alert, and oriented. She follows commands without focal deficits. HEENT AND NECK: Head is atraumatic and normocephalic. Her pupils are equal, round, reactive to light. Her eyes are a bit sunken. Oral mucosa is dry. Trachea is midline. Her neck is supple. There is no JVD. No carotid bruits. CHEST: Clear to auscultation bilaterally. Diminished at the bases. CARDIOVASCULAR: Regular rate and rhythm. S1 and S2 are noted. No murmurs. GASTROINTESTINAL: Soft, nondistended, nontender. Bowel sounds are hypoactive. EXTREMITIES: Trace edema bilaterally. Pulses palpable, but diminished. DIAGNOSTIC DATA: Chest x-ray does not show anything acute. Official over-read is pending. WBC 8, hemoglobin 13.1, hematocrit 36.9, platelet count 211,000. Sodium 137, potassium 3.4, chloride 95, CO2 of 28, anion gap 14, BUN 27, creatinine 0.9, glucose 109, calcium 9.9, magnesium 1, total bilirubin 1.9, AST 21, ALT 15, alkaline phosphatase 184, albumin 3.3. UA has large leukocytes. ASSESSMENT AND PLAN: 1. Failure to thrive: The patient is clearly malnourished on physical examination and via laboratory data. We are going to start her on Clinimix and light intravenous fluids. Check a prealbumin and consult Dr. Tsai. She reports that her appetite has just been suppressed and she has not been hungry, but given the fact that she has been throwing up and losing weight, we are going to go ahead and check a CT of the chest, abdomen, and pelvis to ensure no metastasis of lung cancer. 2. Hypomagnesemia and hypokalemia: Likely nutritional related. These are being replaced in the emergency room. We will check another BMP and magnesium at around 10 o'clock tonight and replace if necessary. 3. History of lung, adenocarcinoma, and diffuse B-cell lymphoma: Again, Dr. Tsai has been consulted. We will continue her Tarceva and defer any management to Dr. Tsai, but we are going to go ahead and get CT of chest, abdomen, and pelvis. 4. Questionable urinary tract infection: We will go ahead and start her on Rocephin until microbiology has returned. 5. Mild anemia: We will check thyroid function, B12, and folate, as well as iron studies. 6. Chemotherapy-induced heart failure: Last ejection fraction we have recorded was in 2014, which showed an ejection fraction of 40% to 45%. Currently, she is mildly hypovolemic. She is certainly not in volume overload or failure, but we will need to go ahead and check another echocardiogram to see where her ejection fraction is. We will continue her home medications once they have been reconciled. 7. History of deep vein thrombosis: We will continue her Xarelto. On looking back at her history, it appears that she was here not too long ago with a coagulopathy. She is not on Coumadin, but we are going to check a stat PT and INR. We will continue her Xarelto once that has been reconciled. 8. Deep vein thrombosis prophylaxis will be provided with her Xarelto, and she is on a proton pump inhibitor for gastrointestinal prophylaxis. Further recommendations to follow. Dictated by ANTHONY Guerrero for Adrien Castillo MD cc: ANTHONY Guerrero MD Marlin D. Gill, MD
[2016-10-24] MEDS: CLINIMIX E 4.25%-5% SOLUTION 1,000 ML IV SCH (20:16)
[2016-10-24 20:47] LABS: CALCIUM 9.5 mg/dL (8.8-10.2); POTASSIUM 3.4 mmol/L (3.5-5.1)
[2016-10-24 20:48] LABS: IRON SATURATION 57 %; TIBC 157 ug/dL; TOTAL IRON 90 ug/dL (49-151); UNBOUND IRON 67 ug/dL (112-346)
--- NOTE | 2016-10-24 23:11 | Diag Imaging Result Document ---
PROCEDURE NAME: THORAX/ABDOMEN/PELVIS - 10/24/2016 CT CHEST ABDOMEN AND PELVIS WITH IV CONTRAST: COMPARISON: CT PET scan dated 01/30/2016. FINDINGS: CHEST: There are numerous parenchymal masses of both lower lung zones consistent with the given history of lung cancer. The disease has worsened substantially since the previous study. There is an increase in both size and number of lesions. Many of the lesions have become confluent forming large masses. For reference, there is a large pleural-based mass at the medial aspect of the right lower lobe. It measures up to 9.0 x 5.7 cm axially (5.2 x 1.9 cm previously). There is low attenuation within the mass indicating necrosis. Numerous other masses have increased substantially in size, especially at the right lower lobe and left lower lobe at the bases. There is trace pleural fluid at the left lung base. There is cardiomegaly that is stable. Hilar and mediastinal lymphadenopathy appears to have worsened. There is nothing to suggest metastatic disease to the bony structures of the thorax. ABDOMEN/PELVIS: The right renal pelvis is dilated which has occurred during the interval. The UPJ and proximal right ureter are obscured somewhat by beam-hardening artifact related to metallic pedicle screws in the spine. I can identify no discrete obstructing stone. The ureter appears to be normal in diameter. There are a few nonobstructing intrarenal stones involving both kidneys. There has been a previous hysterectomy. No focal inflammatory changes, free abdominal gas, or free fluid is identified, otherwise. The remainder of the solid viscera of the abdomen and pelvis and the remainder of the GI tract is essentially unremarkable. There is no evidence of bowel obstruction. There is nothing that would indicate metastatic disease to the bony structures of the abdomen and pelvis. IMPRESSION: 1. Marked increase in size and number of the multiple lung masses seen on the previous study. 2. Nonspecific dilation of the right renal pelvis as compared to the previous study. I can identify no obstructing stone or lesion. Note, however, that the proximal ureter and UPJ are somewhat obscured by metallic beam-hardening artifact. 3. A few nonobstructing intrarenal stones bilaterally. 4. Other incidental/nonacute findings detailed above. [facility]
[2016-10-25 05:52] LABS: HEMATOCRIT 34.6 % (37.0-47.0); HEMOGLOBIN 11.8 g/dL (12.0-16.0); MCH 32.5 PG (27-31); MCHC 34.1 g/dL (33-37); MCV 95.3 FL (81-99); MPV 10.9 FL (7.4-10.4); RBC 3.63 XMIL (4.2-5.4)
[2016-10-25 06:13] LABS: AGAP 12; BUN 28 mg/dL (8-22); CALCIUM 9.1 mg/dL (8.8-10.2); CHLORIDE 103 mmol/L (98-107); COSMO 289; POTASSIUM 3.6 mmol/L (3.5-5.1); SODIUM 142 mmol/L (136-145); TCO2 27 mmol/L (25-35)
[2016-10-25] MEDS ORDERED: AYR NASAL SPRAY NAS PRN (07:45)
[2016-10-25 08:17] LABS: INR 1.45; PROTIME 15.6 Seconds (9.2-11.7)
[2016-10-25] MEDS: NEURONTIN PO SCH ×3 (08:37→16:27)
[2016-10-25] MEDS: ZYLOPRIM PO SCH (08:38)
[2016-10-25] MEDS: COREG PO SCH ×2 (08:39→21:17)
[2016-10-25] MEDS: PRINIVIL PO SCH (08:41)
[2016-10-25] MEDS ORDERED: PATIENT'S OWN MED PO SCH (09:15)
[2016-10-25] MEDS: ULTRAM PO PRN ×2 (09:31→18:41)
[2016-10-25] MEDS: ATIVAN PO PRN ×2 (09:31→21:18)
[2016-10-25] MEDS: LUVOX PO SCH ×2 (10:52→21:19)
[2016-10-25] MEDS: SYMBICORT 80/4.5 MICROGM INHALER INH SCH ×2 (11:38→20:02)
--- NOTE | 2016-10-25 14:10 | CONSULTATION ---
DATE OF CONSULTATION: 10/25/2016 REASON FOR CONSULTATION: Lung cancer, patient known. REQUESTED BY: The hospitalist service. HISTORY OF PRESENT ILLNESS: Ms. Sepulveda is a pleasant 76-year-old, female who is known to Dr. Tsai. She is currently being treated for lung cancer with Tarceva, who presented with increased weakness, malaise and malnutrition. The patient reports that she has recently just not had any appetite and has been unable to drink or eat very much food. She had increasing weakness and presented as per above. She has now been admitted for further workup and treatment. Patient is currently on Tarceva. She was last seen in the office on 10/06/2016 and was doing well. She is due for restaging scans on Thursday. Patient also has history of diffuse large B-cell lymphoma. PAST MEDICAL HISTORY: 1. Adenocarcinoma of the lung, currently on Tarceva. 2. History of diffuse large B-cell lymphoma. 3. Hypothyroidism. 4. History of DVT and is currently on chronic anticoagulation. 5. Adriamycin induced cardiomyopathy. 6. Systolic congestive heart failure. 7. History of ventricular tachycardia, status post pacemaker ICD. 8. Hypertension. 9. GERD. 10. Hyperlipidemia. 11. Gout. PAST SURGICAL HISTORY: 1. Lobectomy of the left lung. 2. Pacemaker placement. 3. Port placement. 4. Previous sinus surgery. 5. Lower back surgery. 6. Lymph node dissection. 7. Plastic surgery with a forehead lift. SOCIAL HISTORY: Patient quit smoking multiple years ago. She denies any current tobacco, alcohol or drug use. She is and has a who is supportive. FAMILY HISTORY: Both her parents are from cancer, her father who had lung cancer, her mother had renal cell carcinoma. REVIEW OF SYSTEMS: As per the HPI. All else negative, noncontributory. PHYSICAL EXAM: Vital Signs: Temperature 98.1 degrees, heart rate 61, respirations 18, blood pressure 101/70, O2 saturation is 94% on room air. General: This is a female who is lying in the hospital bed. She appears to be chronically ill. She is thin. Her and pipeline integrity engineer at bedside. She is in no acute distress. HEENT: Head appears to be normocephalic, atraumatic. Pupils equal, round, reactive. Oral mucosa is a little dry. Otherwise her oral mucosa is normal. Trachea is midline. Cardiovascular: S1-S2 heard. No murmurs, gallops, rubs appreciated. Respiratory: Chest is clear to auscultation bilaterally. Normal respiratory effort. Gastrointestinal: Abdomen is soft and nondistended. Positive bowel sounds. Musculoskeletal: The patient has no obvious bony abnormalities noted. Extremities: Patient has no swelling bilateral extremities or upper extremities. Neurologic: Patient is alert and oriented x3 with no focal motor deficits. LABS AND STUDIES: The patient's white blood cell count was 7.12 today, hemoglobin 11.8, hematocrit 34.6, platelets 180,000. Sodium 142, potassium 3.6, chloride 103, carbon dioxide 27, BUN 28, creatinine 0.8, glucose 98. Magnesium was low 1.0. Albumin 3.3, pre- albumin 6.8. TSH is 0.21. CT of chest, abdomen and pelvis has been completed. This scan was compared to a scan done on 01/30/2016. Impression shows marked increase in size and number of multiple lung masses seen on previous study. Nonspecific dilation of the right renal pelvis as compared to previous study. A few nonobstructing intrarenal stones bilaterally and other incidental nonacute findings detailed above. ASSESSMENT AND PLAN: 1. Adenocarcinoma of the lung. Patient is currently receiving Tarceva. She has had multiple chemotherapy lines previously. The last PET scan on 07/02/2016 and she is due for restaging scans on 10/27/2016. Given the patient's current state will go ahead and hold Tarceva for now let her acute issues resolve. Plan will still be for the patient to follow up with the PET scan once she is discharged from the hospital. 2. Diffuse large B-cell lymphoma. No evidence of recurrence at this time. 3. History deep vein thrombosis. Continue Xarelto 20 mg daily. 4. Malnutrition. She has been started on Clinimix. Her electrolytes are being repleted. Continue to monitor and continue current management. 5. Decreased appetite. Patient's weight in our office on 10/06/2016 was 143 pounds. According to the bed scale she is 108 pounds now. Will go ahead and start a low dose of Marinol 2.5 mg at bedtime. Plans will be to try to increase that if the patient tolerates the medication. Will also go ahead and check a actual weight if the patient is able to stand and do that. Want to thank you for consulting us on Ms. Sepulveda while she is at [facility]. Will continue follow along and adjust our treatment plan to her hospital course. Dictated by RICHARD Redding for Gary Carrera MD cc: Gary Carrera MD [facility]
[2016-10-25] MEDS: CLINIMIX E 4.25%-5% SOLUTION 1,000 ML IV SCH ×2 (14:55→17:11)
[2016-10-25] MEDS: XARELTO PO SCH (16:28)
--- NOTE | 2016-10-25 16:42 | ECHO REPORT ---
ORDER DATE: 10/25/2016 INTERPRETING PHYSICIAN: Dr. Avinash Ramirez ECHOCARDIOGRAPHIC MEASUREMENTS: Interventricular septum: 0.8 cm. Left ventricular posterior wall: 0.8 cm. Diastolic diameter: 4.2 cm. Left atrium: 5.2 cm. Aortic root: 3.8 cm. SUMMARY OF THE 2-DIMENSIONAL IMAGIN. Normal left ventricular cavity size. Estimated ejection fraction of 45%. There is global hypokinesis. 2. There is moderate biatrial enlargement. 3. Pacing leads are noted in the right chamber. 4. Aortic valve leaflets are trileaflet. Mitral valve was normal. Tricuspid valve was normal. Pulmonic valve was normal. 5. There is moderate tricuspid regurgitation. Peak velocity across the tricuspid valve was 2.8 m/sec. Pulmonary artery systolic pressure of 40 mmHg to 45 mmHg. 6. There is mild to moderate mitral regurgitation. 7. Peak velocity across the aortic valve less than 2 m/sec. There is no aortic stenosis or regurgitation. 8. There is no pericardial effusion or obvious intracardiac mass or thrombus seen. 9. Anterior echo-free space, and trace posterior echo-free suggestive of pericardial fat pad was noted. However trace pericardial effusion cannot be definitely ruled out. cc: MD Rakan Gonzalez CRNP
--- NOTE | 2016-10-25 17:06 | PROGRESS NOTE ---
DATE: 10/25/2016 SUBJECTIVE: Today Ms. Sepulveda refers to be feeling a little bit stronger. Continues to have some residual cough. OBJECTIVE: Vital signs: Blood pressure is 103/60, pulse of 60, respirations 18 , temperature is 98.4 degrees. General: Ms. Sepulveda is a 76-year-old female. She is in bed. She looks wasted. BMI is 18.6. HEENT: Mucosa is dry. Anicteric and acyanotic. Neck: Supple. Chest: Air entry is bilaterally reduced. There is diffuse end-expiratory wheezing. Cardiovascular: Regular rate and rhythm. Abdomen: Soft, nontender. Extremities: No pedal edema. PRINCIPAL STATISTICAL PROGRAMMER: Patient is alert and oriented x4. Musculoskeletal: There is an old scar on the left posterior chest wall consistent with a previous lung surgery. LABORATORY DATA: WBC 7.12, hemoglobin is 12.8, platelet count of 180,000. Chemistry reviewed. Sodium is 142, potassium is 3.6, chloride is 103, bicarb is 27, BUN is 28, creatinine 0.8. A CT scan of the chest, abdomen and pelvis shows marked increase in size and number of multiple lung masses seen the previous studies. Nonspecific dilation of the right renal pelvis. ASSESSMENT: 1. Generalized weakness/failure to thrive likely due to underlying malignancy. Adenocarcinoma of the lungs which current CT scan seems to have worsening of the disease. Hematology/Oncology has been consulted. We would defer any recommendations with regards to that to them. 1. History of B-cell lymphoma. 2. 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 PLAN: 1. In general I think Ms Sepulveda is relatively stable. We are going to continue with ceftriaxone for the right hydronephrosis and a suspicion of UTI. Urine culture however is negative but patient got antibiotics before. Will consult Urology to take a look at the image to see if there will be the need for any intervention. 2. Will continue with the Clinimix and go up on the rate and add some lipid infusion to improve on her nutritional status. We also encourage her to eat as much as she can. We will add Ensure for supplements and consult dietitian in the morning on Thursday to help with her diet plan. cc: MD LEDA Suggs
[2016-10-25] MEDS: LIPOSYN 20% 250 ML IV SCH (17:11)
[2016-10-25 20:51] LABS: INR 2.06; PROTIME 22.7 Seconds (9.2-11.7)
[2016-10-25] MEDS: PRAVACHOL PO SCH (21:18)
[2016-10-25] MEDS: DESYREL PO SCH (21:18)
[2016-10-25] MEDS: MARINOL PO SCH (21:19)
[2016-10-26 03:58] LABS: AGAP 7; BUN 25 mg/dL (8-22); CALCIUM 9.5 mg/dL (8.8-10.2); CHLORIDE 100 mmol/L (98-107); COSMO 277; MAGNESIUM 1.5 mg/dL (1.5-2.7); POTASSIUM 3.9 mmol/L (3.5-5.1); SODIUM 136 mmol/L (136-145); TCO2 29 mmol/L (25-35)
[2016-10-26] MEDS: CLINIMIX E 4.25%-5% SOLUTION 1,000 ML IV SCH ×2 (05:14→19:25)
[2016-10-26 06:04] LABS: HEMATOCRIT 33.6 % (37.0-47.0); HEMOGLOBIN 11.4 g/dL (12.0-16.0); MCH 31.8 PG (27-31); MCHC 33.9 g/dL (33-37); MCV 93.6 FL (81-99); MPV 10.5 FL (7.4-10.4); RBC 3.59 XMIL (4.2-5.4)
[2016-10-26] MEDS: SYNTHROID PO SCH (06:16)
[2016-10-26 06:26] LABS: AGAP 9; BUN 24 mg/dL (8-22); CALCIUM 9.6 mg/dL (8.8-10.2); CHLORIDE 100 mmol/L (98-107); COSMO 278; POTASSIUM 4.3 mmol/L (3.5-5.1); SODIUM 137 mmol/L (136-145); TCO2 28 mmol/L (25-35)
[2016-10-26] MEDS: COREG PO SCH ×2 (10:06→20:17)
[2016-10-26] MEDS: NEURONTIN PO SCH ×3 (10:06→17:39)
[2016-10-26] MEDS: PRINIVIL PO SCH (10:07)
[2016-10-26] MEDS: ZYLOPRIM PO SCH (10:08)
[2016-10-26] MEDS: LUVOX PO SCH ×2 (10:08→20:17)
[2016-10-26] MEDS ORDERED: MAGNESIUM SULFATE 2 GM/S.W.I. 2 GM/50 ML IVPB IV ONE (12:46)
--- NOTE | 2016-10-26 15:06 | CONSULTATION ---
DATE OF CONSULTATION: 10/26/2016 CONSULTING PHYSICIAN: Adrien Castillo MD REASON FOR CONSULTATION: Right hydronephrosis. HISTORY OF PRESENT ILLNESS: A 76-year-old female with history of B-cell lymphoma as well as lung adenocarcinoma who is admitted for weakness, decreased appetite and malaise. She is currently on Tarceva for her lung adenocarcinoma. She had a CT chest, abdomen and pelvis done on 10/24/2016 which revealed new onset of right hydronephrosis. She denies significant right flank pain. She has nausea. She denies gross hematuria, dysuria or recurrent recent UTIs. She reports being told in the past she had small kidney stones, but has not had have intervention further. PAST MEDICAL HISTORY: 1. Lung adenocarcinoma. 2. B-cell lymphoma. 3. CHF. 4. Hypertension. 5. Hyperlipidemia. 6. GERD. 7. Gout. 8. History of DVT. 9. Hypothyroidism. PAST SURGICAL HISTORY: Left lung lobectomy. Sinus surgery. Back surgery. Pacemaker placement. Port placement for chemo. ALLERGIES: Amoxicillin. Codeine. Lodine. Pseudoephedrine. Zocor. Ambien. HOME MEDICATIONS: Coreg. Allopurinol. Ultram. Lasix. Trazodone. Omeprazole. Lisinopril. Ativan. Tarceva. Synthroid. Luvox. Neurontin. Pravastatin. Symbicort. Xarelto. SOCIAL HISTORY: Former smoker, denies alcohol or drug use. FAMILY HISTORY: Positive for renal cell carcinoma in her mother. REVIEW OF SYSTEMS: Reviewed 12 systems and are negative with exception to the HPI. PHYSICAL EXAMINATION: Vital signs: Temperature 98.4 degrees, pulse 60, blood pressure 118/62. General: No acute distress. HEENT: Normocephalic, atraumatic. Cardiovascular: Regular rate and rhythm. Pulmonary: Bilateral breath throughout. Abdomen: Protuberant, nontender to palpation. : Bladder is nontender to palpation. Lymphatic: No groin lymphadenopathy. Dermatologic: No obvious skin rashes. Psychiatric: Appropriate mood and affect. Neurologic: Alert and oriented x3. PERTINENT LABORATORY: White cell count of 6000, hematocrit 34, creatinine of 0.6. PERTINENT IMAGES: CT chest, abdomen and pelvis as per HPI. ASSESSMENT: A 76-year-old female with new onset right hydronephrosis and history of advanced lung cancer as well as history of B-cell lymphoma. I reviewed the images personally and agree with the radiologist report that due to the metallic artifact it is difficult to see whether she may have a ureteral stone or not, however, her urinalysis is negative for blood which makes me think that it is unlikely to be the etiology of her hydronephrosis. I have discussed with the patient that she likely has a ureteral stricture. We discussed that her options would be to observe it given her comorbidities versus undergo cystoscopy with retrograde pyelogram and right ureteral stent placement. I have reviewed the risks of the procedure and especially the need for stent exchange in the future. She voiced understanding and wants to talk it over with her . PLAN: 1. I will see the patient and her family tomorrow and we will make a decision on whether to proceed with cystoscopy, right retrograde pyelogram, and placement of right ureteral stent based on her wishes. 2. If patient agrees to the procedure. We will tentatively plan for 10/28/2016. cc: Aung Barahona MD
[2016-10-26] MEDS: SYMBICORT 80/4.5 MICROGM INHALER INH SCH ×2 (15:29→19:36)
[2016-10-26] MEDS: ULTRAM PO PRN ×2 (15:51→23:31)
--- NOTE | 2016-10-26 15:51 | PROGRESS NOTE ---
DATE: 10/26/2016 SUBJECTIVE: Today Ms. Sepulveda refers to be doing a little better. She thinks her strength is getting back. OBJECTIVE: Vital signs: Blood pressure is 112/64, pulse of 62, respirations 18, temperature is 97.6 degrees. General: Ms. Sepulveda is a 76-year-old female. She is in bed, not seemingly distressed. HEENT: Mucosa is slightly dry. Anicteric. Acyanotic. Neck: Supple. Chest: Air entry is bilaterally reduced. There are diffuse bilateral coarse crepitations and some end-expiratory wheezing. Cardiovascular: Regular rate and rhythm. Abdomen: Soft, nontender. Extremities: No pedal edema. SPRAY GUNNER: Patient is alert and oriented. Musculoskeletal: There is an old scar on the left posterior chest wall consistent with previous lung surgery. LABORATORY DATA: WBC is 6.26, hemoglobin is 11.4, platelet count of 180,000. Chemistries reviewed completely normal. An echocardiogram done yesterday showed ejection fraction of 45%. There is global hypokinesis and there is moderate biatrial enlargement. ASSESSMENT: 1. Generalized weakness/failure to thrive likely due to underlying malignancy. 2. Adenocarcinoma of the lungs. Recent computed tomography scan shows worsening of the disease. We will, however, defer recommendations on this to the Hematology/Oncology on board. 3. Chemotherapy-induced congestive heart failure. Ejection fraction of 45% on current on echo. 4. History of B-cell lymphoma. 5. Nonsustained ventricular tachycardia. I understand patient had about 24 beats of ventricular tachycardia last night and her pacemaker never triggered. According to her, she was asleep and she did not have any symptoms. Cardiology has been consulted. 6. Hypomagnesemia. Magnesium is 1.5. We will go ahead in the context of the ventricular tachycardia and replace this to make sure it is 2. cc: Adrien Castillo MD
[2016-10-26] MEDS: XARELTO PO SCH (17:39)
[2016-10-26] MEDS: LIPOSYN 20% 250 ML IV SCH (17:39)
[2016-10-26] MEDS: MARINOL PO SCH (20:16)
[2016-10-26] MEDS: DESYREL PO SCH (20:17)
[2016-10-26] MEDS: PRAVACHOL PO SCH (20:17)
--- NOTE | 2016-10-27 05:34 | EKG Report ---
Test Performed on : 10/26/2016 03:18:22 AM Test Reason : 21 Beat Run of V-Tach per telemetry Blood Pressure : / mmHG Vent. Rate : 060 BPM Atrial Rate : 085 BPM P-R Int : 000 ms QRS Dur : 170 ms QT Int : 478 ms P-R-T Axes : 000 184 136 degrees QTc Int : 478 ms Ventricular-paced rhythm Biventricular pacemaker detected Abnormal ECG When compared with ECG of 05-SEP-2016 13:31, Vent. rate has decreased BY 10 BPM Unconfirmed Result
[2016-10-27 06:10] LABS: MANUAL DIFF NEEDED? NO
[2016-10-27] MEDS: SYNTHROID PO SCH (06:11)
[2016-10-27 06:20] LABS: BASO% 0.5 % (0.0-0.8); EOS# 0.18 X1000 (0.0-0.7); EOS% 3.2 % (0.0-10.0); HEMATOCRIT 32.9 % (37.0-47.0); HEMOGLOBIN 11.3 g/dL (12.0-16.0); LYMPH# 1.55 X1000 (1.2-3.4); LYMPH% 27.5 % (20.5-51.1); MCH 32.2 PG (27-31); MCHC 34.3 g/dL (33-37); MCV 93.7 FL (81-99); MONO# 0.87 X1000 (0.11-0.59); MONO% 15.5 % (1.7-9.3); MPV 10.8 FL (7.4-10.4); NEUT% 53.3 % (42.2-75.2); PLT 180 X1000 (130-400); RBC 3.51 XMIL (4.2-5.4)
[2016-10-27 06:52] LABS: AGAP 8; BUN 26 mg/dL (8-22); CALCIUM 9.4 mg/dL (8.8-10.2); CHLORIDE 102 mmol/L (98-107); COSMO 277; POTASSIUM 4.2 mmol/L (3.5-5.1); SODIUM 136 mmol/L (136-145); TCO2 26 mmol/L (25-35)
[2016-10-27] MEDS: SYMBICORT 80/4.5 MICROGM INHALER INH SCH ×2 (08:24→19:33)
[2016-10-27] MEDS ORDERED: MAGNESIUM SULFATE 2 GM/S.W.I. 2 GM/50 ML IVPB IV ONE (08:37)
[2016-10-27] MEDS: CLINIMIX E 4.25%-5% SOLUTION 1,000 ML IV SCH ×2 (09:45→23:21)
[2016-10-27] MEDS: PRINIVIL PO SCH (09:46)
[2016-10-27] MEDS: COREG PO SCH ×2 (09:46→21:24)
[2016-10-27] MEDS: NEURONTIN PO SCH ×3 (09:46→16:32)
[2016-10-27] MEDS: ZYLOPRIM PO SCH (09:47)
[2016-10-27] MEDS: LUVOX PO SCH ×2 (09:47→21:24)
[2016-10-27] MEDS: ULTRAM PO PRN (10:41)
--- NOTE | 2016-10-27 11:28 | CONSULTATION ---
DATE OF CONSULTATION: 10/27/2016 INDICATION: Ventricular tachycardia. HISTORY OF PRESENT ILLNESS: Mr. Sepulveda is a 76-year-old, white female with a history of treated B- cell lymphoma and now with adenocarcinoma of the lung. She presented for evaluation of malaise and weakness felt to be due to dehydration. She apparently has had issues with diarrhea over the last week that was thought to be secondary to Tarceva. She had difficulty with her oral intake at around that time as well but denied any overt nausea, vomiting, or any sort of chest pain. She has not had any abdominal pain. No shortness of breath. Yesterday afternoon, around 1:30, there was an episode of 11 beats of a wide complex tachycardia. Patient had no symptoms at that time. She does have a history of an Adriamycin induced cardiomyopathy with EFs in the 35-40% range in the past. She has a defibrillator in place as well. She denies any shocks occurring at that time. PAST MEDICAL HISTORY: 1. Significant for adenocarcinoma of the lung, currently on Tarceva. Followed by Dr. Oralia Tsai. 2. History of diffuse large B-cell lymphoma. 3. History of DVT. 4. Atrial fibrillation with history of cardioversion in November of 2012, followed by a 2nd cardioversion in May of 2013. 5. History of ventricular tachycardia with implantation of a Bi-V ICD in September of [address] Silas Warren at [facility]. 6. Hypertension. 7. Hyperlipidemia. 8. Diabetes mellitus. 9. Chronic kidney disease. 10. Reflux disease. 11. Hyperlipidemia. 12. Gout. SOCIAL HISTORY: She quit smoking many years ago. No current tobacco, alcohol, or illicit drug use. She is and her is present in the room. FAMILY HISTORY: Both parents with cancer, father of lung cancer, mother with renal cell carcinoma. REVIEW OF SYSTEMS: A 10 system review of systems is negative except for those things mentioned in the HPI. PHYSICAL EXAMINATION: Vital Signs: Afebrile, heart rate is 74, blood pressure 100/60. Her Is and Os have been in total positive around 2 L over the last 48 hours. General: She is in no acute distress. Somewhat ill appearing. HEENT: Oropharynx is moist. Normal dentition. Eye examination shows pink conjunctivae and white sclerae. Neck: Examination shows no obvious thyromegaly or thyroid tenderness. Cardiovascular: She is in a regular rate and rhythm. She has no obvious murmurs. There is no S3 present. She has no lower extremity edema. She has warm and well perfused lower extremities. Chest Examination: Clear bilaterally. She has no increased work of breathing. Abdomen: Soft, nontender, nondistended. She has no obvious organomegaly. Skin Examination: Warm and dry throughout without any rashes. Neurological: She is moving all extremities well. Cranial nerves 2-12 are intact without sensation deficits. Psychiatric: Alert, oriented, pleasant. Normal mood and affect. PERTINENT DATA: Her EKG on October 26 at 3:18 a.m. showed what appeared to be atrial fibrillation as the atrial rhythm with ventricular paced beats. Her telemetry on October 26 at 1339 demonstrated what appeared to be an 11 beat run of a wide complex tachycardia occurring within the setting of ventricular paced complexes. She had an echocardiogram on October 25, demonstrating an EF of 45% and global hypokinesis. RV systolic pressure of 40-45, mild to moderate mitral regurgitation. Chest, abdomen, and pelvis CT was reviewed. She had a marked increase in the size and number of the multiple lung masses seen on previous study. Nonspecific dilatation of the right renal pelvis, nonobstructing infrarenal stones bilaterally. Lab data shows a white count of 5.6, hematocrit 32.9, platelet count 180,000. Sodium 136, potassium is 4.2, BUN 26, creatinine 0.6. Magnesium level 1.7. ASSESSMENT: 1. Nonsustained ventricular tachycardia. 2. Dehydration with possible hydronephrosis. PLAN: [facility] is coming to evaluate her device to identify the etiology of the wide complex tachycardia. This is likely being induced secondary to her underlying cardiomyopathy as well as her acute dehydration and renal issues. I would continue with electrolyte repletion and fluids as she is already receiving. Her magnesium is being repleted again today. She is on a beta-yamileth. If she has continued issues with this, we could consider possible initiation of amiodarone. Considering her history of a DVT as well as atrial fibrillation, I would recommend continuation of the Xarelto unless discontinuation is required for upcoming procedures. cc: Junito Coleman MD
--- NOTE | 2016-10-27 14:09 | Diag Imaging Result Document ---
PROCEDURE NAME: HEAD W/WO CONTRAST - 10/27/2016 CT OF THE HEAD WITH AND WITHOUT CONTRAST: FINDINGS: There is no evidence of mass effect, bleed, or abnormal extra-axial fluid collection. There is an expansile mass in the right posterior ethmoid air cells which has not changed significantly since 09/05/2016 and is probably a mucous retention cyst or mucocele. This was also present on 01/30/2016 and 07/18/2016. No acute bony abnormalities are present. There is no evidence of abnormal contrast enhancement. IMPRESSION: No evidence of acute intracranial disease.
[2016-10-27] MEDS: LIPOSYN 20% 250 ML IV SCH (16:31)
[2016-10-27] MEDS: XARELTO PO SCH (16:32)
--- NOTE | 2016-10-27 20:18 | PALLIATIVE CARE CONSULTATION ---
DATE: 10/27/2016 REQUESTING PRACTITIONER: ANTHONY Guerrero REASON FOR CONSULTATION: Goals of care. HISTORY OF PRESENT ILLNESS: This is a 76-year-old pleasant female with a past medical history of adenocarcinoma of the lung, currently managed by Dr. Oralia Tsai, history of diffuse large B-cell lymphoma, hypothyroidism, history of DVT, cardiomyopathy, systolic congestive heart failure, history of ventricular tachycardia, hypertension, gastroesophageal reflux disease, hyperlipidemia, and gout. She was most recently admitted on 10/24/2016 after presenting to the ED with complaints of progressive weakness, vomiting, diarrhea for 1 week. It is reported that she has had a 15-pound weight loss over the last 3 months. Ms. Sepulveda's is at the bedside and states that she has shown an overall functional decline over the last 3 months as well. She is no longer driving. Ms. Sepulveda states that she is able to perform her activities of daily living independently but becomes fatigued. She denies pain, shortness of breath, nausea, anxiety or depression. The Palliative Care Team has been consulted to assist with goals of care. REVIEW OF SYSTEMS: A 12 point review of systems has been conducted and otherwise negative except as mentioned in the HPI. PAST MEDICAL HISTORY: 1. Adenocarcinoma of the lung. 2. History of diffuse B-cell lymphoma. 3. Hypothyroidism. 4. History of DVT. 5. Cardiomyopathy. 6. Systolic congestive heart failure. 7. History of ventricular tachycardia. 8. Hypertension. 9. GERD. 10. Hyperlipidemia. 11. Gout. PAST SURGICAL HISTORY: 1. Lobectomy of the left lung. 2. Pacemaker defibrillator placement. 3. Port placement. 4. Sinus surgery. 5. Lower back surgery. 6. Lymph node dissection. 7. Forehead lift. SOCIAL HISTORY: Prior to this admission she lived at home with her who is very attentive to her care. She is a past smoker. Current alcohol, tobacco and drug use have been denied. FAMILY HISTORY: Positive for lung cancer and renal cell carcinoma. PHYSICAL EXAMINATION: General: This is a chronically ill-appearing, 76-year- old female, who is very pleasant and does not appear to be in any acute distress. HEENT: Atraumatic, normocephalic. Neck: Trachea is midline. Cardiovascular: Regular rate and rhythm. Pulmonary: Lung sounds are diminished. Respirations are nonlabored. Abdomen: Soft. Bowel sounds are active. Extremities: Pulses are palpable. Skin: Pale, warm and dry. Neurologic: Awake, alert, oriented to person, place and time. IMPRESSION: This is a 76-year-old, female with a past medical history as listed above in the HPI. The patient states that she is feeling better since admission. Per Oncology, I believe the plan is to follow up with a PET scan once she is discharged from the hospital. I do feel like Ms. Sepulveda is appropriate for outpatient palliative care services. Those services have been explained and she is agreeable to those services. We also discussed advanced directive and power of assistant county attorney. Ms. Sepulveda is a full code. She does not have an advanced directive or [id number], but has requested more information, which will be given. As mentioned she does not have any acute complaints at this time. It appears that her palliative performance scale is 40%. The palliative care team will continue to follow. Thank you for this consultation. Dictated by ANTHONY Villa for Norman Joe MD cc: ANTHONY Villa MD [facility]
--- NOTE | 2016-10-27 20:28 | PROGRESS NOTE ---
DATE: 10/27/2016 SUBJECTIVE: Today, Ms. Sepulveda refers to be doing a lot better. She feels much stronger than before and she is eating more. OBJECTIVE: Vital signs: Blood pressure is 108/62, pulse of 74, respiration is 16, temperature 98 degrees. The patient is saturating 97% on room air. General: Ms. Sepulveda is a 76-year-old, female. She is in bed, not seemingly distressed. HEENT: Mucosa is slightly dry. Anicteric. Acyanotic. Neck: Supple. Chest: Air entry is bilaterally reduced. A few bibasilar crepitations. Cardiovascular: Regular rate and rhythm. There is a generator pocket of the pacemaker at the left anterior chest wall. There is also an old scar on the left posterior chest wall. Abdomen: Soft, nontender. Extremities: No pedal edema. PRODUCTION ASSEMBLER: Patient is alert and oriented x4. There is no focal neurological deficit. LABORATORY DATA: WBC is 5.63, hemoglobin is 11.3, platelet count of 180,000. Chemistries reviewed, completely normal. Magnesium is 1.7. ASSESSMENT: 1. Generalized weakness/failure to thrive. Likely due to underlying malignancy. 2. Volume depletion. I will continue with adequate hydration. 3. Adenocarcinoma of the lungs. Recent computed tomography scan of the lungs shows worsening of the disease. Hematology/Oncology is on board. 4. Chemotherapy induced congestive heart failure. Ejection fraction of 45% noted. 5. Nonsustained ventricular tachycardia. The patient has been evaluated by Cardiology. [facility] dental detail representative is expected to come and interrogate the device. I will follow further recommendations from Cardiology. 6. Hypomagnesemia. Magnesium is slightly improved today. We will go ahead and give her another dose of IV magnesium to maintain the level at 2. 7. Right hydronephrosis. Patient has been evaluated by Dr. Barahona. There is a plan to discuss the possibility of cystoscopy with ureteral stent placement. That decision is going to be made between the urologist and the patient today, and we will go from there. PLAN: In general, Ms. Sepulveda is a 76-year-old, female, who has been in the hospital for the past 3 days. Initially presented because of generalized weakness. A CT scan of the chest reveal progression of her disease. A CT of the abdomen shows possibility of a right hydronephrosis which patient has been seen by Dr. Barahona and there is a plan to intervene. During the hospital stay, patient also has had multiple rounds of nonsustained ventricular tachycardia, has been seen by Cardiology and we are pending [facility] dental detail representative to come and interrogate the device. We will continue with a gentle IV hydration and also the Clinimix with lipid infusion to improve her nutrition. Palliative Medicine has also seen the patient and they plan to do outpatient palliative care. cc: Adrien Castillo MD
[2016-10-27] MEDS: PRAVACHOL PO SCH (21:24)
[2016-10-27] MEDS: MARINOL PO SCH (21:24)
[2016-10-27] MEDS: DESYREL PO SCH (21:25)
[2016-10-28 06:01] LABS: BUN 24 mg/dL (8-22); CALCIUM 9.7 mg/dL (8.8-10.2); TCO2 25 mmol/L (25-35)
[2016-10-28] MEDS: CLINIMIX E 4.25%-5% SOLUTION 1,000 ML IV SCH ×2 (06:28→12:19)
[2016-10-28] MEDS: SYNTHROID PO SCH (06:44)
[2016-10-28 06:48] LABS: AGAP 8; CHLORIDE 104 mmol/L (98-107); COSMO 278; POTASSIUM 4.6 mmol/L (3.5-5.1); SODIUM 137 mmol/L (136-145)
[2016-10-28] MEDS: SYMBICORT 80/4.5 MICROGM INHALER INH SCH ×2 (08:43→19:35)
[2016-10-28] MEDS: COREG PO SCH ×2 (10:11→20:53)
[2016-10-28] MEDS: NEURONTIN PO SCH ×3 (12:19→16:58)
[2016-10-28] MEDS: PRINIVIL PO SCH (12:20)
[2016-10-28] MEDS: LUVOX PO SCH ×2 (12:21→20:53)
[2016-10-28] MEDS: ZYLOPRIM PO SCH (12:21)
--- NOTE | 2016-10-28 12:55 | PROGRESS NOTE ---
DATE: 10/28/2016 SUBJECTIVE: The patient was admitted on 10/24/2016, followed by Dr. Shah and also Dr. Tsai. This is a 76-year-old female with history of adenocarcinoma of the lung, diffuse B-cell lymphoma, also has a history of Adriamycin-induced cardiomyopathy, lower extremity DVT, and she receives daily oral chemotherapy with Tarceva. She presented on 10/24/2016 with a week's worth of symptoms consistent with failure to thrive. She has been unable to eat and more weak, and she has been unable to ambulate well. Her gait has been unsteady. Has been coughing up clear white sputum, also throwing up once or twice a day. She denies any overt abdominal pain. Denied any chest pain or shortness of breath. Did have some days of diarrhea prior to the admission, but she says that had resolved. She denies any hematochezia or hematemesis. Emesis reports a 15-pound weight loss over the last 3 months. Her weakness brought her to the hospital. REVIEW OF PAST MEDICAL HISTORY: 1. Adenocarcinoma of the lung on Tarceva, followed by Dr. Tsai. 2. Diffuse B-cell lymphoma. 3. Hypothyroidism. 4. History of deep vein thrombosis, on chronic anticoagulation. 5. Adriamycin-induced cardiomyopathy. 6. Systolic congestive heart failure. 7. History of ventricular tachycardia, status post pacemaker and ICD. 8. Hypertension. 9. Gastroesophageal reflux disease. 10. Hyperlipidemia. 11. History of gout. She was admitted with really failure to thrive, hypomagnesemia, some weight loss, questionable urinary tract infection, and mild anemia. She feels better this morning. She has some right hydronephrosis. I think the plan is for cystoscopy today and ureteral stent placement, and talk about maybe going home today. PHYSICAL EXAMINATION: Vital Signs: Today, temperature 97.9 degrees, pulse 64, respirations 12, blood pressure 112/54. HEENT: Pupils were equal and round. Lungs: Clear in all lung tilley. Cardiovascular: Regular rhythm and rate, without murmur or S3. Abdomen: Soft. Skin: Warm and dry. URINE OUTPUT: 1700 mL. LABORATORIES: Reviewed from yesterday. Hematocrit stable at 32. Renal function was good at 0.7 this morning. Sodium 137, potassium 4.6, chloride 104, bicarbonate 25, and magnesium has come up to 1.8. ASSESSMENT AND PLAN: 1. Generalized weakness, failure to thrive due to underlying malignancy and multiple factors. 2. Volume depletion, which is resolved. 3. Adenocarcinoma of the lungs. Recent CT of the lungs showed worsening of the disease. Dr. Tsai following. 4. Chemotherapy-induced congestive heart failure (Adriamycin). Ejection fraction is 45%. Well compensated at this time. 5. Nonsustained ventricular tachycardia. Has been followed by Cardiology. She has a [facility]. I think the device was going to be interrogated. Will follow up on that from Cardiology. 6. Hypomagnesemia, which has been supplemented. 7. Hydronephrosis. Supposed to have a stent placed possibly today and will see about discharge plans. We will discuss with the other crew. cc: Javier Pena MD
[2016-10-28] MEDS ORDERED: MAGNESIUM SULFATE 2 GM/S.W.I. 2 GM/50 ML IVPB IV ONE (13:44)
--- NOTE | 2016-10-28 14:09 | PROGRESS NOTE ---
DATE: 10/28/2016 SUBJECTIVE: Ms. Sepulveda feels she is doing okay today. She reports she is roughly stable from yesterday. PHYSICAL EXAMINATION: Vital signs: Afebrile. Heart rate is 66. Blood pressure 112/54. General: She is in no acute distress. Cardiovascular: She is in a regular rate and rhythm. She has no obvious murmurs. No S3. Currently her telemetry shows she is being paced ventricularly. No lower extremity edema. Chest: Clear bilaterally. She has no increased work of breathing. Abdomen: Soft, nontender. PERTINENT DATA: Sodium is 137, potassium 4.6. BUN 24, creatinine 0.7. Mag level is 1.8. She had an echocardiogram performed on the . This demonstrated a mild reduction in EF of 45%. ASSESSMENT: 1. Metastatic lung cancer. 2. Questionable of ventricular arrhythmias. PLAN: She had a device interrogation performed yesterday. She had the last 2 nonsustained ventricular tachycardia episodes on September 24 and October 10 respectively. Both were self- terminated. She had no further events noted during this hospitalization. It does not appear that any of the arrhythmias she had during this hospitalization were nonsustained ventricular tachycardia. I would continue on her current medications. I will replete her magnesium as it is 1.8 today. Please contact us with further questions. cc: Junito Coleman MD
[2016-10-28] MEDS ORDERED: ZOFRAN IV PRN (16:46)
[2016-10-28] MEDS: XARELTO PO SCH (16:59)
[2016-10-28] MEDS: LIPOSYN 20% 250 ML IV SCH (16:59)
--- NOTE | 2016-10-28 18:44 | PROGRESS NOTE ---
DATE: 10/28/2016 SUBJECTIVE: Ms. Sepulveda was scheduled to undergo cystoscopy with right retrograde pyelogram, and ureteral stent placement. But due to miscommunication she was fed full breakfast, hence her case was canceled. She reports doing okay. She denies right flank pain. OBJECTIVE: Vital Signs: Temperature 97.9 degrees, pulse 64, blood pressure 112/54. General: Frail-appearing female in no acute distress. Abdomen: Nontender, nondistended. Back: No CVA tenderness. PERTINENT LABS: Creatinine of 0.7 today. ASSESSMENT: A 76-year-old female with metastatic lung adenocarcinoma and history of B-cell lymphoma who has new onset of right hydronephrosis. The patient and her do wish to proceed with right ureteral stent placement still. We discussed adding her on the schedule on 10/30/2016. We revisited the risks of the procedure. PLAN: 1. We will proceed with cystoscopy and right ureteral stent placement and right retrograde pyelogram on 10/30/2016. 2. Will follow. cc: Aung Barahona MD
[2016-10-28] MEDS: MARINOL PO SCH (20:52)
[2016-10-28] MEDS: PRAVACHOL PO SCH (20:53)
[2016-10-28] MEDS: DESYREL PO SCH (20:53)
[2016-10-28] MEDS: ATIVAN PO PRN (22:49)
[2016-10-28] MEDS: ULTRAM PO PRN (22:49)
[2016-10-29] MEDS: CLINIMIX E 4.25%-5% SOLUTION 1,000 ML IV SCH ×2 (02:00→15:53)
[2016-10-29] MEDS: SYNTHROID PO SCH (07:56)
[2016-10-29] MEDS: SYMBICORT 80/4.5 MICROGM INHALER INH SCH (08:06)
[2016-10-29] MEDS: LUVOX PO SCH ×2 (11:06→22:14)
[2016-10-29] MEDS: NEURONTIN PO SCH ×3 (11:07→18:13)
[2016-10-29] MEDS: PRINIVIL PO SCH (11:07)
[2016-10-29] MEDS: ZYLOPRIM PO SCH (11:07)
[2016-10-29] MEDS: COREG PO SCH ×2 (11:30→22:14)
--- NOTE | 2016-10-29 12:51 | PROGRESS NOTE ---
DATE: 10/29/2016 SUBJECTIVE: Ms. Sepulveda is lying in bed. She is requesting to go home today. We did speak to the patient and after her procedure tomorrow, hopefully will be able to get her home in the afternoon, if okay with the other consultants. OBJECTIVE: Vital Signs: Temperature is 98.3 degrees, heart rate 63, respirations 12, blood pressure 101/76, O2 is 93% on room air. HEENT: Atraumatic, normocephalic. Pupils equal, round, and reactive to light and accommodation. Neck: Supple. Trachea midline. Cardiovascular: No murmurs, gallops, or rubs noted. Respiratory: Lung sounds clear to excursion. Nonlabored breathing. Gastrointestinal: Soft, nontender, nondistended. Positive bowel sounds 4 quadrants. Skin: Warm, dry, and intact. Neurological Examination: No focal deficits noted. LABORATORY DATA: Nothing new. ASSESSMENT AND PLAN: 1. Generalized weakness/failure to thrive secondary to malignancy and multiple factors. 2. Volume depletion, resolved. 3. Adenocarcinoma of the lungs. Recent CT lungs showed worsening of the disease. Dr. Tsai is following. 4. 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 Being followed by Cardiology. The patient has had an interrogation performed. They suggested continuing current medications. They did repeat her magnesium. Cardiology has signed off for the time being. 5. New onset right hydronephrosis. The patient will get a cystoscopy and right urethral stent placement and right retrograde pyelogram on 10/30/2016. DISPOSITION: Possible discharge on 10/30/[address] Barahona. Dictated by ANTHONY Xie for Javier Pena MD cc: Javier Pena MD
[2016-10-29] MEDS: ULTRAM PO PRN (15:05)
[2016-10-29] MEDS: XARELTO PO SCH (18:13)
[2016-10-29] MEDS: LIPOSYN 20% 250 ML IV SCH (18:13)
--- NOTE | 2016-10-29 20:07 | PROGRESS NOTE ---
DATE: 10/29/2016 SUBJECTIVE: Ms. Sepulveda reports no changes today. She states she is ready to proceed with her surgery. OBJECTIVE: Vital Signs: Temperature 98, pulse 66, blood pressure 108/56. General: A frail- appearing female in no acute distress. Abdomen: Nontender, nondistended. Back: No CVA tenderness. ASSESSMENT AND PLAN: A 76-year-old female with metastatic cancer who has right ureteral obstruction. She is on anticoagulation. We again revisited risks OF cystoscopy with retrograde pyelogram and placement of right ureteral stent including, but not limited to bleeding, infection, injury to the bladder, injury to adjacent structures, and need for additional interventions. She voiced understanding and wished to proceed. PLAN: 1. Nothing per oral after midnight. 2. To the operating room tomorrow for cystoscopy, right retrograde pyelogram, right ureteral stent placement. cc: Aung Barahona MD
[2016-10-29] MEDS: PRAVACHOL PO SCH (22:13)
[2016-10-29] MEDS: MARINOL PO SCH (22:13)
[2016-10-29] MEDS: DESYREL PO SCH (22:13)
[2016-10-30] MEDS: CLINIMIX E 4.25%-5% SOLUTION 1,000 ML IV SCH (06:52)
[2016-10-30] MEDS: SYNTHROID PO SCH (06:53)
[2016-10-30] MEDS: COREG PO SCH (08:44)
[2016-10-30] MEDS ORDERED: OMNIPAQUE ONE (10:05)
[2016-10-30] MEDS ORDERED: LEVAQUIN 500 MG/D5W 500 MG/100 ML IVPB ONE (10:22)
[2016-10-30] MEDS ORDERED: DIPRIVAN 1% ONE (11:03)
[2016-10-30] MEDS ORDERED: LR 1,000 ML ONE (11:10)
[2016-10-30] MEDS ORDERED: EXTENSION SET 32 IN 4522 ONE (11:10)
--- NOTE | 2016-10-30 11:57 | Diag Imaging Result Document ---
PROCEDURE NAME: RETROGRADES 2 OR 3 FILMS - 10/30/2016 UNILATERAL RIGHT URETEROGRAM: COMPARISON: CT from 10/24/2016. FINDINGS: The exam was performed by the patient's urologist. The right ureter was well opacified and appears normal. There appears to be significant extra renal pelvis. There is, otherwise, no hydronephrosis. There was placement of a right nephroureteral stent in good position. IMPRESSION: Right extra renal pelvis. No complication.
[2016-10-30] MEDS: NEURONTIN PO SCH (12:07)
[2016-10-30] MEDS: ZYLOPRIM PO SCH (12:07)
[2016-10-30] MEDS: PRINIVIL PO SCH (12:07)
[2016-10-30] MEDS: ULTRAM PO PRN (12:07)
[2016-10-30] MEDS: LUVOX PO SCH (12:07)
[2016-10-30 12:44] VITALS: BP 117/89
[2016-10-30] MEDS ORDERED: NORCO-7.5 PO ONE (13:10)
[2016-10-30] MEDS ORDERED: HEPARIN ONE (13:45)
--- NOTE | 2016-10-30 13:54 | DISCHARGE SUMMARY ---
ADMISSION DATE: 10/24/2016 DISCHARGE DATE: 10/30/2016 FOLLOWED BY: Dr. Mary Shah and Dr. Oralia Tsai. CHIEF COMPLAINT: Presented with malaise and weakness. HISTORY OF PRESENT ILLNESS: Ms. Sepulveda is a 76-year-old female with history of adenocarcinoma of the lung, diffuse B-cell lymphoma, history of Adriamycin-induced cardiomyopathy, lower extremity DVT, and received daily oral chemotherapy with Tarceva. She came to the hospital on 10/24/2016 because she had around a week's worth of symptoms consistent with failure to thrive. She has been becoming more weak. She has been unable to ambulate. Her gait has been unsteady. Has been coughing up clear whitish sputum. She has also thrown up once or twice. Denied any overt abdominal pain. Denied any chest pain. PAST MEDICAL HISTORY: Again reviewed: 1. Adenocarcinoma of the lung. Received Tarceva per Dr. Tsai. 2. History of diffuse B-cell lymphoma. 3. Hypothyroidism. 4. History of DVT, on chronic anticoagulation. 5. Adriamycin-induced cardiomyopathy. 6. Systolic congestive heart failure. 7. History of ventricular tachycardia, status post pacemaker and ICD. 8. Hypertension. 9. Gastroesophageal reflux disease. 10. Hyperlipidemia. 11. Gout. PAST SURGICAL HISTORY: She had a lobectomy of the left lung, pacemaker, port placement, sinus surgery, lower back surgery, radical lymph node dissection, and forehead lift. HOSPITAL COURSE: The patient was admitted with basically failure to thrive, found to have hypomagnesemia and hypokalemia. She has a known history of lung adenocarcinoma. They treated her for a questionable urinary tract infection. Known to have chemotherapy-induced cardiomyopathy. Echocardiogram done on 10/25/2016 showed normal left ventricular cavity size, estimated ejection fraction 45%. There was global hypokinesis. There was moderate biatrial enlargement. Pacing leads were noted in the right chamber. Pulmonary systolic pressure was 40-45 mmHg. There was no pericardial effusion. The patient showed steady improvement. Found to have right hydronephrosis, evaluated by Dr. Barahona. He did a retrograde cystoscopy and placed a stent, and felt she was okay to go home on 10/30/2016. She will follow up with Dr. Shah and Dr. Barahona as well as Dr. Oralia Tsai. DISCHARGE MEDICATIONS: She will be on Zyloprim 300 mg a day, Symbicort as needed b.i.d., Coreg 3.125 mg b.i.d., Marinol 2.5 mg at bedtime, Neurontin 600 mg p.o. t.i.d., Synthroid 50 mcg daily, Prinivil 5 mg a day, Ativan 0.5 mg t.i.d., Pravachol 10 mg at bedtime, Xarelto 20 mg a day, and trazodone 150 mg at bedtime. cc: Javier Pena MD
[2016-10-30] MEDS ORDERED: PERIDEX MT SCH (21:00)
--- NOTE | 2016-11-06 07:46 | OPERATIVE NOTE ---
PROCEDURE DATE: 10/30/2016 SURGEON: Dr. Aung Barahona. PREOPERATIVE DIAGNOSIS: Right hydronephrosis, metastatic lung cancer. PRIMARY PROCEDURES: Cystoscopy, right retrograde pyelogram, placement of 6- Amharic, 22 cm ureteral stent. INDICATIONS: A 76-year-old female with metastatic lung cancer who is currently undergoing chemotherapy. She was admitted for failure to thrive and had stage and imaging which revealed fullness of right renal pelvis. She was counseled on observation versus ureteral stent placement in order to maximize her renal function and decided to proceed with the latter. FINDINGS: Unremarkable cystoscopy. Retrograde pyelogram revealed mild dilation of the renal pelvis. Successful stent placement. PROCEDURE IN DETAIL: After obtaining informed consent, the patient was brought to the operating room. Perioperative antibiotics and laryngeal mask anesthesia were administered. She was placed in lithotomy position, prepped and draped in sterile fashion. A 21-Amharic rigid cystoscope was used to gain access to the bladder, which was then examined in systematic fashion. She did not have discrete mucosal lesions, excessive trabeculations, or diverticula noted. There were no bladder stones. I turned my attention to the right ureteral orifice which was cannulated with a cone-tipped ureteral catheter. 50% diluted Omnipaque dye was used to perform the retrograde pyelogram. It revealed mild dilation of the collecting system. No evidence of filling defects. We then removed the ureteral catheter and placed a PTFE wire to the level of the renal pelvis. A 6-Amharic x22 cm ureteral stent was advanced over the wire via the cystoscope in a standard fashion with proximal coil position confirmed fluoroscopically and distal coil directly visualized. The string was detached from the stent. The bladder was extubated. Cystoscope was removed. She was extubated and taken to PACU for further recovery. ESTIMATED BLOOD LOSS: None. COMPLICATIONS: None. DISPOSITION: To PACU and subsequently floor for observation. cc: Aung Barahona MD [facility]
== END 2016-10-30 14:09 | disposition home or self-care (01) ==
LOC: ED 14:30 → SUATTDRO 18:36 → 4N 18:36
PROVIDERS: ATTEND Urology

== ENCOUNTER 2016-11-25 17:32 | Inpatient (IN) ==
[2016-11-25] MEDS ORDERED: MAGNESIUM SULFATE 2 GM/S.W.I. 2 GM/50 ML IVPB IV ONE (18:27)
[2016-11-25] MEDS ORDERED: DILAUDID IV ONE (19:01)
[2016-11-25 19:04] LABS: MANUAL DIFF NEEDED? NO; URINE MICRO REVIEW NEEDED? NO; URINE SOURCE VOIDED
[2016-11-25] MEDS: POTASSIUM CHLORIDE 20 MEQ/SWI 20 MEQ/100 ML IVPB IV SCH ×2 (19:05→21:06)
[2016-11-25 19:08] LABS: BASO% 0.3 % (0.0-0.8); EOS# 0.01 X1000 (0.0-0.7); EOS% 0.1 % (0.0-10.0); HEMATOCRIT 35.5 % (37.0-47.0); HEMOGLOBIN 11.9 g/dL (12.0-16.0); LYMPH# 1.01 X1000 (1.2-3.4); LYMPH% 11.7 % (20.5-51.1); MCH 32.4 PG (27-31); MCHC 33.5 g/dL (33-37); MCV 96.7 FL (81-99); MONO# 0.56 X1000 (0.11-0.59); MONO% 6.5 % (1.7-9.3); MPV 10.6 FL (7.4-10.4); NEUT% 81.4 % (42.2-75.2); PLT 190 X1000 (130-400); RBC 3.67 XMIL (4.2-5.4)
[2016-11-25 19:10] LABS: BILIRUBIN URINE NEGATIVE (NEGATIVE); BLOOD URINE MODERATE (NEGATIVE); COLOR YELLOW; GLUCOSE URINE NEGATIVE (NEGATIVE); LEUKOCYTES URINE NEGATIVE (NEGATIVE); NITRITE URINE NEGATIVE (NEGATIVE); PROTEIN URINE NEGATIVE (NEGATIVE); SP GRAVITY URINE 1.007; TURBIDITY URINE CLEAR (CLEAR); UR EPITHELIAL CELLS <10 /HPF (<10); URINE BACTERIA NEGATIVE /HPF; URINE RBC TNTC /HPF (<10); URINE WBC <10 /HPF (<10); UROBILINOGEN URINE NORMAL (NORMAL)
[2016-11-25 19:34] LABS: AGAP 15; ALBUMIN 3.5 g/dL (3.5-5.0); ALKALINE PHOSPHATASE 94 U/L (32-104); BUN 10 mg/dL (8-22); CALCIUM 8.8 mg/dL (8.8-10.2); CHLORIDE 92 mmol/L (98-107); COSMO 278; GOT 18 U/L (10-30); GPT 8 U/L (10-36); MAGNESIUM 1.1 mg/dL (1.5-2.7); POTASSIUM 2.7 mmol/L (3.5-5.1); SODIUM 137 mmol/L (136-145); TCO2 30 mmol/L (25-35); TOTAL BILIRUBIN 0.75 mg/dL (0.20-1.00); TOTAL PROTEIN 6.7 g/dL (6.3-8.3)
[2016-11-25] MEDS ORDERED: KLOR-CON PO ONE (19:40)
--- NOTE | 2016-11-25 20:41 | PROVIDER DOCUMENTATION ---
This chart was entered by Alexandra Perry Scribe, acting as scribe for Kristopher Gomez MD. HPI-Cardiac General - General Chief Complaint: Chest Pain Stated Complaint: Defib. Engaged Time Seen by Provider: 11/25/16 18:22 Source: patient, family Allergies/Adverse Reactions: Patient Allergies Allergy/AdvReac Type Severity Reaction Status Date / Time amoxicillin trihydrate * AdvReac Intermediate NAUSEA/VOMI Verified 11/25/16 18: 27 [From Augmentin] TING codeine [Codeine] AdvReac Intermediate NAUSEA/VOMI Verified 11/25/16 18:27 TING etodolac [From Lodine] AdvReac Intermediate NAUSEA/VOMI Verified 11/25/16 18:27 TING potassium clavulanate * AdvReac Intermediate NAUSEA/VOMI Verified 11/25/16 18:27 [From Augmentin] TING pseudoephedrine AdvReac Intermediate NAUSEA/VOMI Verified 11/25/16 18:27 TING simvastatin [From Zocor] AdvReac Intermediate NAUSEA/VOMI Verified 11/25/16 18: 27 TING zolpidem tartrate * AdvReac Intermediate NAUSEA/VOMI Verified 11/25/16 18:27 [From Ambien] TING Home Medications: Home Medication List Medication Instructions Recorded Confirmed Last Taken Type Allopurinol 300 mg PO DAILY 03/03/12 11/25/16 10/24/16 07:00 History 300 MG Furosemide [Lasix] 40 mg PO DAILY PRN 03/03/12 11/25/16 10/24/16 07:00 History 60 MG Tramadol [Ultram] 50 mg PO TID PRN PRN 03/03/12 11/25/16 10/24/16 07:00 History 50 MG Trazodone HCl 150 mg PO QHS 12/08/12 11/25/16 10/24/16 07:00 History 150 MG Omeprazole 40 mg PO DAILY@0700 02/26/13 11/25/16 10/24/16 07:00 History 40 MG Lisinopril 5 mg PO DAILY 05/30/13 11/25/16 10/24/16 07:00 History 5 MG Lorazepam [Ativan] 0.5 - 1 mg PO TID PRN PRN 11/16/14 11/25/16 10/24/16 07:00 History 0.5 - 1 MG Erlotinib HCl [Tarceva] 150 mg PO DAILY 09/05/16 11/25/16 10/24/16 07:00 History 150 MG Levothyroxine [Synthroid] 50 microgm PO DAILY@0700 09/06/16 11/25/16 10/24/16 07 :00 History 50 MICROGM PRAVAstatin [Pravachol] 10 mg PO QHS 09/06/16 11/25/16 10/24/16 07:00 History 10 MG Carvedilol [Coreg] 3.125 mg PO BID 11/25/16 11/25/16 Unknown History Fluvoxamine [Luvox] 100 mg PO BID 11/25/16 11/25/16 Unknown History Gabapentin [Neurontin] 300 mg PO TID 11/25/16 11/25/16 Unknown History Hydroxyzine HCl 25 mg PO BID 11/25/16 11/25/16 Unknown History Metolazone 5 mg PO DAILY 11/25/16 11/25/16 Unknown History Potassium Chloride 20 meq PO DAILY 11/25/16 11/25/16 Unknown History Promethazine HCl 25 mg PO PRN PRN 11/25/16 11/25/16 Unknown History - History of Present Illness-Cardiac Nature of Presenting Problem: 76 Y/O F presents to ED with Cardaic General. Pt presents to ED with active Defib which keeps firing off. Pt has a hx of advance lung cancer and currently isn't receiving treatment due to dr sydnie. Pt states Defib had several occurrences of firing off today and was noted twice by the today during Physical exam. Pt was seen in ED and hospitalized with the same occurrences and was given Magnesium and Potassium do to previous lab work and examination, noting that they were both depleted. Location: reports: central Quality of Pain: reports: aching Severity in ED: severe Onset/Duration: this evening Timing: still present Context/Activities at Onset: reports: none Prior Chest Pain/Cardiac Workup: reports: other (defib) Associated Symptoms: reports: denies symptoms Similar Symptoms Previously?: No Recently Seen Here or By Another Healthcare Provider: No Review of Systems - Adult - REVIEW OF SYSTEMS - ADULT Constitutional: denies: chills, fever Eyes: reports: no symptoms reported Ears, Nose, Mouth & Throat: reports: no symptoms reported Cardiovascular: reports: other (defib firing off) Respiratory: reports: no symptoms reported Gastrointestinal: reports: no symptoms reported Genitourinary: reports: no symptoms reported Musculoskeletal: reports: no symptoms reported Integumentary: reports: no symptoms reported Neurological: reports: no symptoms reported Psychiatric: reports: no symptoms reported Endocrine: reports: no symptoms reported Hematologic/Lymphatic: reports: no symptoms reported Allergic/Immunologic: reports: no symptoms reported All Other Systems: Reviewed and Negative Past History - Adult - PAST MEDICAL HISTORY-ADULT Review of Records: reports: Old Records Reviewed, Nursing Assessment Review, Medications Reviewed, Social history reviewed & non-contributory. Major Childhood Illnesses: reports: denies history Cardiovascular: reports: pacemaker Respiratory: reports: cancer Gastrointestinal: reports: denies history Obstetrical/Gynecological: reports: denies history Genitourinary: reports: denies history Musculoskeletal: reports: denies history Neurological: reports: denies history Endocrine/Immune: reports: Diabetes, thyroid disorder Other Conditions: reports: denies history - PRIOR SURGERIES/PROCEDURES Surgical/Procedure History: reports: other (partial lung resection l lung- tumor ) - IMMUNIZATION STATUS Childhood Immunizations: See Nurse Assessment Flu Vaccine: See Nurse Assessment - FAMILY HISTORY Family History: reviewed, not pertinent Physical Exam-General - CONSTITUTIONAL General Appearance: alert, moderate distress - EYES Eyes: PERRL/EOMI, pink conjunctivae - HEAD, EARS, NOSE, MOUTH & THROAT HENMT: normocephalic/atraumatic, moist mucous membranes, normal ENT inspection, TMs normal, pharynx normal - NECK Neck: non-tender, full range of motion, supple, normal inspection - GASTROINTESTINAL (ABDOMEN) Abdominal Exam: non tender, soft - LYMPHATIC Lymphatic: no adenopathy - MUSCULOSKELETAL Back Exam: normal inspection, no CVA tenderness, no vertebral tenderness - SKIN Integumentary: normal color, normal turgor - PSYCHIATRIC Psych/Mental Status: normal mood/affect, normal thought content, normal thought process, oriented x 3 Progress - PLAN OF CARE/RESULTS Progress/Plan/Lab Results: Vital Signs - 8 hr 11/25/16 17:44 11/25/16 18:14 11/25/16 19:51 Temperature 99.6 F Pulse Rate 75 62 71 Respiratory Rate 23 18 23 Blood Pressure 108/64 108/64 O2 Sat by Pulse Oximetry 92 L 92 L 94 L Laboratory Results - last 24 hr 11/25/16 11/25/16 11/25/16 18:52 18:52 18:52 WBC 8.61 RBC 3.67 L Hgb 11.9 L Hct 35.5 L MCV 96.7 MCH 32.4 H MCHC 33.5 RDW Std Deviation 15.1 H Plt Count 190 MPV 10.6 H Immature Gran % (Auto) 0.0 Neut % (Auto) 81.4 H Lymph % (Auto) 11.7 L Ponce % (Auto) 6.5 Eos % (Auto) 0.1 Baso % (Auto) 0.3 Immature Gran # (Auto) 0.00 Neut # (Auto) 7.00 H Lymph # (Auto) 1.01 L Ponce # (Auto) 0.56 Eos # (Auto) 0.01 Baso # (Auto) 0.03 Sodium 137 Potassium 2.7 L Chloride 92 L Carbon Dioxide 30 Anion Gap 15 BUN 10 Creatinine 0.7 Estimated GFR/1.73 m2 > 60 BUN/Creatinine Ratio 14 Glucose 182 H Calculated Osmolality 278 Calcium 8.8 Magnesium 1.1 L Total Bilirubin 0.75 AST 18 ALT 8 L Alkaline Phosphatase 94 Total Protein 6.7 Albumin 3.5 Globulin 3.2 Albumin/Globulin Ratio 1.1 Urine Source VOIDED Urine Color YELLOW Urine Turbidity CLEAR Urine pH 7.0 Ur Specific [place] 1.007 Urine Protein NEGATIVE Ur Glucose (Stick) NEGATIVE Ur Ketones (Stick) NEGATIVE Urine Blood MODERATE A Urine Nitrite NEGATIVE Urine Bilirubin NEGATIVE Urobilinogen Dipstick NORMAL Urine Leukocytes NEGATIVE Urine WBC (Auto) <10 Urine RBC (Auto) TNTC A U Epithel Cells (Auto) <10 Urine Bacteria (Auto) NEGATIVE Orders Category Date Time Status CBC WITH ELECTRONIC DIFF [HEME] Stat Lab 11/25/16 18:52 Completed COMPREHENSIVE METABOLIC PANEL [CHEM] Stat Lab 11/25/16 18:52 Completed MAGNESIUM [CHEM] Stat Lab 11/25/16 18:52 Completed URINALYSIS [URINALYSIS] Stat Lab 11/25/16 18:52 Completed Hydromorphone [Dilaudid] Med 11/25/16 19:01 Discontinued 1 mg IV NOW ONE Magnesium Sulfate 2 gm/S.w.i. [Magnesium Sulfate 2 gm/S Med 11/25/16 18:27 Discontinued .w.i] 2 gm in 50 ml IV NOW Potassium Chloride 20 Meq/Swi Med 11/25/16 19:00 Active 20 meq in 100 ml IV Q2H Potassium Chloride E.r. [Klor-Con] Med 11/25/16 19:40 Discontinued 60 meq PO NOW ONE Result Diagrams: 11/25/16 18:52 11/25/16 18:52 - EKG 1 Time of EKG reading by physician:: 17:39 EKG Read and Signed by:: Kristopher Gomez EKG Interpretation (*Must complete 3 of following elements*): Abnormal Rate: 70 Rhythm: Ventricular paced rhythm Comments: Abnormal ECG - CONSULTS/PCP/HOSPITALIST Notification #1 *Consult/PCP/Hospitalist*: Time Discussed: 19:13 Reason/Comments: Plan of Care Consult Disposition: other (discussed with , He was unsure of Plan of care due to Pt being pt who is currently out of town. did suggest due to pt current health to turn off the Defib.) #2 Consult: (biosolids management technician) Time Discussed: 19:57 Reason/Comments: Plan of Care #3 Consult: Dr. Álvarez Time Discussed: 20:35 Reason/Comments: Admit Consult Disposition: Admit (Admit Accepted) Departure - Departure Date of Disposition Decision: 11/25/16 Time of Disposition Decision: 19:55 DIAGNOSIS: VF (ventricular fibrillation) Disposition: HOME 01 Certified Medical Emergency: Emergent Condition: Good Additional Freetext Instructions: ED Follow Up Instructions: You have been treated by a care provider in the Emergency Department. These instructions are being provided to you so you can have an understanding of how to care for yourself upon discharge. Upon discharge from the Emergency Department, you are responsible for making arrangements for follow-up care by a physician of your choice. Take all prescribed medications as directed. Return to the Emergency Department immediately for any new or worsening symptoms. You may call the Physician Referral phone number at [phone] to obtain a list of Physicians who are taking new patients. Referrals and Follow-Ups: Mary Shah MD [Primary Care Provider] - - Critical Care Note This patient required my direct & personal management of CC.: Yes Total Time (mins): 45 Critical Care Statement: This patient required my direct personal management to treat or rule out processes, the absence of which, could potentiallly result in sudden, clinically significant life or limb threatening deterioration. This chart was documented by the indicated scribe, (Alexandra Perry Scribe) and accurately reflects the services I performed and decisions made by me, Kristopher Gomez MD, as attested by the provider's signature.
[2016-11-25] MEDS ORDERED: LASIX IV ONE (21:29)
--- NOTE | 2016-11-25 22:59 | HISTORY AND PHYSICAL ---
REASON FOR ADMISSION: Weakness and frequent episodes of defibrillator firing today. PRIMARY CARE: Dr. Mary Shah ONCOLOGIST: Dr. Oralia Tsai HARDWOOD FLOORING SPECIALIST: Harinder Monroe MD HISTORY OF PRESENT ILLNESS: Ms. 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 The patient comes in today complaining of no less than 20 episodes of her defibrillator firing since 12 noon today. She denies any worsening shortness of breath, cough, no PND, orthopnea. No chest pain or antecedent palpitations. No lightheadedness. She does admit to feeling progressively weak this morning with some postural lightheadedness. No increased leg swelling. No cough, fever, or chills. No vomiting or diarrhea, but she has been having consistent nausea today with some rather unusual fasciculations of her muscles. Patient comes into the ER and was noted to have a magnesium of 1.1, a potassium of 2.7. The patient had the chain sales representative from the defibrillator company interrogate her defibrillator and per him the patient had a combined total of 30 ventricular fibrillations and ventricular tachycardia. The defibrillator itself is functioning normally per the tech. REVIEW OF SYSTEMS: Twelve systems negative. Positive findings per HPI. Notable for constipation. ALLERGIES: Amoxicillin. Codeine. Lodine. Pseudoephedrine. Zocor. Ambien. HOME MEDICATION LIST: Comprises of allopurinol 200 mg daily, Coreg 3.125 mg b.i.d., Luvox 100 mg b.i.d., Lasix 40 mg daily p.r.n. Neurontin 300 mg t.i.d., hydroxyzine 25 mg b.i.d., Synthroid 50 mcg daily, lisinopril 5 mg daily, lorazepam 0.5 mg 1 mg p.r.n. agitation, metolazone 5 mg daily, omeprazole 40 mg daily, potassium 20 mEq daily, Pravachol 10 mg at bedtime, promethazine 25 mg p.r.n., tramadol 50 mg t.i.d., trazodone 150 mg daily. PAST SURGICAL HISTORY: Notable for a lobectomy of the left lung, AICD placement, port placement, sinus surgery, back surgery, radical lymph node dissection and a forehead lift. SOCIAL HISTORY: Does not smoke, drink, or use illicit drugs. She is and lives with her . FAMILY HISTORY: Notable for heart disease in her mom, diabetes in sister, lung cancer in father, renal cell cancer in her mother. LABORATORY WORK AND DIAGNOSTICS: EKG shows ventricular paced rhythm. Potassium is 2.7, magnesium 1.1. Hepatic function test is negative. Glucose 182, BUN is 10, creatinine 0.7. White count 8000, hemoglobin and hematocrit 11 and 35, platelets 190,000. Urinalysis shows too numerous to count Red blood cells. Otherwise, nil of note. Chest film reviewed by me shows cardiomegaly with possible mildly increased vascular markings with right lower lobe opacity and increased infiltrates in the middle lobe. PHYSICAL EXAMINATION: GENERAL: Chronically ill, elderly woman. She is alert and oriented to person, place and time with normal mood and affect. VITAL SIGNS: Blood pressure is 108/64, heart rate 71, respirations 23. Temperature is 99.6, 94% on 3 L. HEENT: Head is normocephalic, atraumatic. She has alopecia from chemo. EYES: DUARTE EOMI. She is anicteric, but pale. ENT: Oropharyngeal exam is grossly normal. No oropharyngeal exudates or erythema. No central cyanosis. NECK: Supple. She has a positive mild to moderate hepatojugular reflux. No bruit. No thyromegaly. No lymphadenopathy in the cervical and supraclavicular chains. CHEST: Decreased entry in both lung tilley with bibasilar crepitations and extensive expiratory wheezes. CARDIOVASCULAR: First and second heart sounds heard. No gallops, rubs. Rhythm is regular. The patient has a port in the right pectoral area and a defibrillator in the left pectoral area. No tenderness or erythema noted to either of these devices. ABDOMEN: Full, soft, no tenderness or organomegaly, bowel sounds are hypoactive at this time. EXTREMITIES: Trace edema both lower extremities. Pulses distally in lower extremities have good volume and are symmetrical. No clubbing or peripheral cyanosis. No visible focal deficits. SKIN: No overt breakdown or lesions. MUSCULOSKELETAL: Patient has mild proximal muscular atrophy, but otherwise was normal. ASSESSMENT: 1. Ventricular tachycardia/ventricular fibrillation secondary to hypokalemia and hypomagnesemia. Hypokalemia secondary to hypomagnesemia, hypomagnesemia secondary to diuresis. 2. 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 3. Gout. 4. Hypothyroidism. 5. adenocarcinoma of the lung. 6. B-cell lymphoma. PLAN: At this time, we will replete electrolytes. I have decided to discontinue metolazone which could worsen the hypokalemia and hypomagnesemia, but more importantly also course flare-up of her gout. Hopefully down the road we can discontinue allopurinol if there is no need for this. Also will start patient on oral magnesium at to decrease the renal excretion of potassium. We will also start patient on Aldactone as opposed to metolazone which would also further decrease her potassium losses through the kidney. This may also complement the patient's congestive heart failure by the way. I will get Dr. Monroe to see the patient. See if he approves this. The patient's clinical picture was suggestive of some underlying pulmonary edema, and we will give her low-dose of Lasix, Repeat chest film in the morning. Repeat another potassium and magnesium in the next 3 hours to see if all the efforts at repletion in the ER have succeeded in correcting her electrolyte derangements. If patient's electrolytes are corrected and she has no further recurrence of defibrillator firing, she can be discharged in the next 24-48 hours. cc: MD Mary Turner MD
[2016-11-25] MEDS ORDERED: PHENERGAN PO PRN (23:12)
[2016-11-25] MEDS ORDERED: TYLENOL PO PRN (23:12)
[2016-11-25] MEDS ORDERED: ZOFRAN IV PRN (23:12)
[2016-11-25] MEDS ORDERED: ULTRAM PO PRN (23:12)
[2016-11-25] MEDS ORDERED: LOVENOX SUBQ SCH (23:12)
[2016-11-25] MEDS ORDERED: DUONEB (A & A) INH ONE (23:12)
[2016-11-25] MEDS ORDERED: ATIVAN PO PRN (23:12)
[2016-11-26 00:19] LABS: MAGNESIUM 1.9 mg/dL (1.5-2.7); POTASSIUM 4.1 mmol/L (3.5-5.1)
[2016-11-26] MEDS ORDERED: SODIUM CHLORIDE 0.9% 10 ML ONE (02:24)
[2016-11-26] MEDS: MAG-OX PO SCH ×3 (02:28→21:02)
[2016-11-26] MEDS ORDERED: SODIUM CHLORIDE 0.9% INJ PRN (03:36)
[2016-11-26] MEDS ORDERED: PHENERGAN IV PRN (03:36)
--- NOTE | 2016-11-26 05:38 | EKG Report ---
Test Performed on : 11/25/2016 5:39:47 PM Test Reason : No ORder in PatientKeeper Blood Pressure : / mmHG Vent. Rate : 070 BPM Atrial Rate : 067 BPM P-R Int : 000 ms QRS Dur : 176 ms QT Int : 422 ms P-R-T Axes : 000 -44 050 degrees QTc Int : 455 ms Ventricular-paced rhythm Abnormal ECG When compared with ECG of 26-OCT-2016 03:18, Vent. rate has increased BY 10 BPM Unconfirmed Result
[2016-11-26 06:54] LABS: BASO% 0.3 % (0.0-0.8); HEMOGLOBIN 11.9 g/dL (12.0-16.0); IMM GRAN# 0.02 X1000 (0.0-0.04); IMM GRAN% 0.2 % (0.0-0.5); LYMPH# 0.83 X1000 (1.2-3.4); LYMPH% 6.6 % (20.5-51.1); MANUAL DIFF NEEDED? YES; MCH 32.3 PG (27-31); MCHC 33.1 g/dL (33-37); MCV 97.8 FL (81-99); MONO# 0.71 X1000 (0.11-0.59); MONO% 5.7 % (1.7-9.3); MPV 10.8 FL (7.4-10.4); NEUT% 87.2 % (42.2-75.2); PLT 176 X1000 (130-400); RBC 3.68 XMIL (4.2-5.4)
[2016-11-26 07:17] LABS: BANDS 3 % (0-1); LYMPHS 14 % (21-51); MONO 11 % (1-9)
[2016-11-26 07:18] LABS: AGAP 13; BUN 15 mg/dL (8-22); CALCIUM 8.9 mg/dL (8.8-10.2); CHLORIDE 96 mmol/L (98-107); COSMO 277; MAGNESIUM 1.7 mg/dL (1.5-2.7); POTASSIUM 3.8 mmol/L (3.5-5.1); SODIUM 137 mmol/L (136-145); TCO2 28 mmol/L (25-35)
--- NOTE | 2016-11-26 07:29 | Diag Imaging Result Doc PS360 ---
CHEST-PORTABLE - 11/26/2016 INDICATION: chf TECHNIQUE: COMPARISON: 11/25/2016 FINDINGS: Stable left-sided pacemaker. Stable cardiomegaly. Stable significant infiltrate in the right lung base. This has increased since 10/24/2016. Stable consolidation of the left lower lobe as well. This may involve a pleural effusion. Stable right chest port. IMPRESSION: No significant change from prior. Electronically signed by Haja Sheppard 11/26/2016 7:26 AM
--- NOTE | 2016-11-26 07:30 | Diag Imaging Result Doc PS360 ---
CHEST-PORTABLE - 11/25/2016 INDICATION: cp TECHNIQUE: COMPARISON: 10/24/2016 FINDINGS: Stable right chest port and left-sided pacemaker. Stable cardiomegaly. There is grossly stable retrocardiac consolidation, atelectasis or effusion. There is worsening infiltrate at the right lung base. There is possible increase in size of the nodular opacities in the right lung base. IMPRESSION: Worsening from prior, mostly at the right lung base. Electronically signed by Haja Sheppard 11/26/2016 7:27 AM
[2016-11-26] MEDS: ZYLOPRIM PO SCH (10:12)
[2016-11-26] MEDS: ALDACTONE PO SCH (10:13)
[2016-11-26] MEDS: LASIX PO SCH (10:13)
[2016-11-26] MEDS: NEURONTIN PO SCH ×3 (10:15→21:01)
[2016-11-26] MEDS: KLOR-CON PO SCH (10:15)
[2016-11-26] MEDS: PRINIVIL PO SCH (10:15)
[2016-11-26] MEDS: HYDROXYZINE PO SCH ×2 (10:16→21:02)
[2016-11-26] MEDS: LUVOX PO SCH ×2 (10:17→21:03)
[2016-11-26] MEDS: COREG PO SCH ×2 (10:17→21:05)
[2016-11-26] MEDS: SYNTHROID PO SCH (10:37)
[2016-11-26] MEDS: PRILOSEC PO SCH (10:37)
--- NOTE | 2016-11-26 11:48 | PROGRESS NOTE ---
DATE: 11/26/2016 SUBJECTIVE: Ms. Sepulveda is a 76-year-old, female, sitting up in the bed chronically ill- appearing in no acute distress. OBJECTIVE: Vital signs: Temperature of 99 degrees, heart rate 60, respirations 20 and blood pressure is 106/53. O2 98% on 3 L nasal cannula. HEENT: Head is atraumatic, normocephalic. PERRL. The patient does have hair loss from chemotherapy. Neck: Supple. Trachea midline. CV: S1, S2 appreciated. Regular rate and rhythm. Pulmonary: Bilaterally decreased lung tilley with bibasilar crepitations. The patient does have a productive cough, scattered rhonchi. Abdomen: Soft, nontender. Bowel sounds are somewhat hypoactive. Extremities: Trace edema with bilateral pedal pulses. No clubbing or cyanosis. Neuro: No focal deficits noted. LABORATORY DATA: Repeat magnesium was 1.9; magnesium on a.m. labs was 1.7. Sodium 137, potassium 3.8, BUN was 15, creatinine 0.8. Blood glucose was 141. WBC 12, hemoglobin 11, hematocrit 36, platelet count 176. DIAGNOSTIC DATA: Chest x-ray showed a stable left pacemaker, stable cardiomegaly, significant infiltrate in the right lung base that has increased since 10/24/2016. Stable consolidation of the left lower lobe as well that may involve a pleural effusion. Stable right port chest. No significant change from prior. ASSESSMENT AND PLAN: 1. Ventricular tachycardia, ventricular fibrillation secondary to hypokalemia and hypomagnesium secondary to diuresis. Patient's pacemaker was interrogated looking at text data that she had been shocked over 30 times over the last few days. The patient's magnesium and potassium have been replenished. Her diuresis has been on hold. 2. 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 3. Gout. 4. Hypothyroidism. 5. Adenocarcinoma of the lung. 6. B-cell lymphoma. 7. Deep vein thrombosis history. Continue with Xarelto. 8. Stable significant infiltrate in the right lung base and stable consolidation of the left lower lobe as well that may involve a pleural effusion. The patient did have a low-grade fever this morning of 99, and an increase in her white count to 12. Continue supplemental oxygen. Will await cardiology input to restart her diuresis for pleural effusion. Disposition: Possibly home on Miguel. 9. Further recommendations to follow physician evaluation. Dictated by ANTHONY Xie for Javier Pena MD cc: Javier Pena MD
--- NOTE | 2016-11-26 12:33 | CONSULTATION ---
DATE OF CONSULTATION: 11/26/2016 CHIEF COMPLAINT: Chest discomfort, irregular heartbeat, shortness of breath, cough. HISTORY: A 76-year-old female who has a history of advanced lung cancer with metastatic involvement of both lungs who presents to the emergency room department because since yesterday around noontime she suffered multiple defibrillator shocks, a total of 21 according to the analysis of her pacemaker-defibrillator done late last night. She had multiple episodes of nonsustained ventricular tachycardia, multiple episodes of ventricular fibrillation. A total of 21 shocks were delivered. Thirty-three episodes of V-fib were documented. The patient at this time is complaining of some cough. She is somewhat short of breath. She states that for the past several weeks she has had chest congestion, persistent cough productive of yellow phlegm. She hurts in the chest whenever the defibrillator goes off. PAST MEDICAL HISTORY: Her past history is positive for a nonischemic dilated cardiomyopathy and implantation of a defibrillator in 2012. It was upgraded to a biventricular device in September of 2012. Her cancer was discovered in 2014, and she has been treated by the oncology service. She has had prior paroxysmal atrial fibrillation. She has had prior diffuse large B cell lymphoma. She has had hypothyroidism. For the past few months, she has been admitted at least twice to the hospital because of low magnesium levels and defibrillator jolts. Last echocardiogram read by Dr. Ramirez on October 25 revealed an ejection fraction of 45% with moderate tricuspid regurgitation. The patient also had an issue with obstructive uropathy, and Dr. Barahona proceeded to perform a cystoscopy with right retrograde pyelogram and placement of a ureteral stent on her on 10/30/2016. Her past history is also positive for high cholesterol, diabetes mellitus. She has had a hysterectomy. She has had lung biopsies and also lymph node biopsies. She is . She has one child who was present in the room. FAMILY HISTORY: Mother had coronary heart disease. Father also had coronary heart disease. REVIEW OF SYSTEMS: Functional capacity lately has been markedly impaired. She has persistent cough, shortness of breath, chest pain whenever she gets the defibrillator jolt. Her AICD is a [employer] device and is followed by Dr. Warren at [facility]. HOME MEDICATIONS: At this time included the following. She is on Xarelto 20 mg daily, Tarceva 150 mg daily, trazodone 150 at bedtime, tramadol 50 three times a day, Luvox 100 twice a day, potassium chloride 20 daily, omeprazole 40 daily, pravastatin 20 mg daily, metolazone 5 mg daily, lisinopril 5 mg daily, levothyroxine 50 mcg daily, hydroxyzine 25 twice a day, gabapentin 300 three times a day, furosemide 40 mg daily, carvedilol 3.125 twice a day, allopurinol 300 daily. ALLERGIES: To simvastatin, zolpidem, amoxicillin, etodolac, codeine. PHYSICAL EXAMINATION: Vital signs: Today blood pressure is 106/53, temperature 99 degrees, pulse 60, respirations 20. General: The patient is chronically ill, pale. HEENT: Unremarkable. Chest: Diminished breath sounds at the bases. No rales are noted. Cardiac: Heart sounds are distant, regular, no gallop or murmurs noted. Abdomen: Nontender, soft, no masses, no hepatomegaly. Extremities: Decreased pulses, no peripheral edema. Neurological : She moves four extremities, follows commands. BLOOD WORK TODAY: Sodium is 137, potassium 3.8, BUN 15, creatinine 0.8. Magnesium is 1.7. IMPRESSION: 1. Patient presenting with recurrent ventricular fibrillation, ventricular tachycardia with multiple defibrillator jolts. She has underlying nonischemic dilated cardiomyopathy presumably secondary to Adriamycin. 2. History of lymphoma in the remote past. 3. History of diabetes and hyperlipidemia. 4. Reported history of stage IV lung cancer , refractory to therapy, with no further treatment options (per family's report). RECOMMENDATION: At this point in time, I would probably suggest to try amiodarone 400 mg three times a day as a loading dose for the next few days and then keep her on a maintenance dose of 200 mg daily. Based on the description given to me by the patient's daughter that her cancer is untreatable at this point in time, I believe that the best thing would be for the family and the treating physicians to get together and decide on whether or not her defibrillator needs to be deactivated, which would certainly lead to the patient's demise. However, with an untreated cancer, the wisdom of putting her on long-term amiodarone management is also very questionable. At any rate, until they make up their minds, I will go ahead and place her on amiodarone mostly for palliative reasons since she still has the defibrillator on, and she will continue to get shocked every time that she gets a bout of ventricular fibrillation. This would be basically a case of electrical storm and usually portends a very poor prognosis in general. Would suggest to the primary service to make sure that her electrolytes are always within adequate range. Upon discharge, to follow with Dr. Monroe. However, I strongly recommend a gathering between the family and the treating physicians regarding her short-term prognosis coming from the underlying malignancy that she has been diagnosed with. cc: Joseph Jackson MD MTDD
[2016-11-26] MEDS: ROCEPHIN 1 GM/NS 1 GM/50 ML IVPB IV SCH (13:16)
[2016-11-26] MEDS: CORDARONE PO SCH ×2 (13:16→21:05)
[2016-11-26] MEDS: XARELTO PO SCH (16:14)
[2016-11-26] MEDS: DESYREL PO SCH (21:02)
[2016-11-26] MEDS: PRAVACHOL PO SCH (21:05)
[2016-11-27] MEDS: PRILOSEC PO SCH (06:49)
[2016-11-27] MEDS: SYNTHROID PO SCH (06:49)
[2016-11-27 07:02] LABS: MANUAL DIFF NEEDED? NO
[2016-11-27 07:09] LABS: BASO% 0.3 % (0.0-0.8); EOS# 0.04 X1000 (0.0-0.7); EOS% 0.5 % (0.0-10.0); HEMATOCRIT 33.7 % (37.0-47.0); HEMOGLOBIN 10.9 g/dL (12.0-16.0); LYMPH# 1.01 X1000 (1.2-3.4); LYMPH% 13.3 % (20.5-51.1); MCH 31.7 PG (27-31); MCHC 32.3 g/dL (33-37); MONO# 0.81 X1000 (0.11-0.59); MONO% 10.6 % (1.7-9.3); MPV 10.8 FL (7.4-10.4); NEUT% 75.3 % (42.2-75.2); PLT 159 X1000 (130-400); RBC 3.44 XMIL (4.2-5.4)
[2016-11-27 07:46] LABS: CALCIUM 9.1 mg/dL (8.8-10.2); POTASSIUM 4.3 mmol/L (3.5-5.1)
[2016-11-27] MEDS: CORDARONE PO SCH ×3 (08:49→17:01)
[2016-11-27] MEDS: MAG-OX PO SCH ×2 (08:50→21:15)
[2016-11-27] MEDS: ALDACTONE PO SCH (08:50)
[2016-11-27] MEDS: ZYLOPRIM PO SCH (08:50)
[2016-11-27] MEDS: KLOR-CON PO SCH (08:50)
[2016-11-27] MEDS: COREG PO SCH ×2 (08:50→21:15)
[2016-11-27] MEDS: PRINIVIL PO SCH (08:51)
[2016-11-27] MEDS: HYDROXYZINE PO SCH ×2 (08:51→21:15)
[2016-11-27] MEDS: LASIX PO SCH (08:51)
[2016-11-27] MEDS: NEURONTIN PO SCH ×3 (08:52→17:01)
[2016-11-27] MEDS: LUVOX PO SCH ×2 (08:52→21:15)
--- NOTE | 2016-11-27 10:16 | PROGRESS NOTE ---
DATE: 11/27/2016 CHIEF COMPLAINT: Chest discomfort, shortness of breath, cough, irregular heart beat. SUBJECTIVE: The patient had an uneventful night. She has not experienced any further defibrillator jolts. She is still short of breath. She is still coughing some phlegm. She is about to eat her breakfast. She has not actual pains right now. OBJECTIVE: Blood pressure 108/52, temperature 98.9, pulse 60, respirations 20. She is awake, alert, chronically ill, looking somewhat pale. HEENT: Unremarkable. Chest: Diminished breath sounds at both bases. There are some tubular sounds at the left base with dullness to percussion, occasional scattered rhonchi. Cardiovascular: Heart sounds are regular, rhythmic. I do not hear gallop or a murmur at this time. Abdomen: Soft, nontender. Extremities: Show no significant edema. Neurologic examination: Followed commands, moved 4 extremities. LABORATORY DATA: Blood work today her sodium 134, potassium 4.3, BUN 31, creatinine 1.6. Hemoglobin 10 g, platelet count is 159,000. IMPRESSION: 1. Patient who presented for admission with recurrent ventricular fibrillation and ventricular tachycardia that was successfully terminated by multiple defibrillator jolts. 2. History of dilated non ischemic cardiomyopathy status post automatic implanted cardiac defibrillator implantation several years ago, biventricular system. 3. Advanced adenocarcinoma of the lung. Per family no treatment options seem to be available. 4. History of diabetes. 5. History of lymphoma in the remote past. RECOMMENDATIONS: At this point in time, we will continue the patient on amiodarone at present doses. I would suggest to make the amiodarone 400 twice daily for at least 2 weeks at the time of discharge and after that, decrease the amiodarone to 200 mg once daily. She really needs to meet with her oncologist regarding her short and long-term prognoses regarding her malignancy and then the family and the patient really need to make a final decision as to at which point to turn off the automatic implanted cardiac defibrillator device if the cancer indeed has no further available therapies and her symptoms are not manageable with palliative care. Thank you again for the opportunity to participate in her evaluation. Upon discharge please refer the patient back to Harinder Monroe MD, who is her primary equipment operating engineer. cc: Joseph Jackson MD
--- NOTE | 2016-11-27 13:11 | PROGRESS NOTE ---
DATE: 11/27/2016 She is feeling better. She is breathing better and more comfortable. Temp 98.9 degrees, pulse 70, respirations 14, blood pressure 108/52. Lungs: Are clear in all lung tilley. Cardiovascular: Regular rhythm and rate without murmur or S3. She has not had any further discharges from her defibrillator. Reviewed labs from yesterday. Potassium 4.3, sodium 131. Magnesium was not checked. We will recheck that in the morning. Note the creatinine bumped up to 1.6. ASSESSMENT AND PLAN: 1. The patient presented with initially recurrent ventricular fibrillation and ventricular tachycardia that was successfully terminated with multiple defibrillator jolts. She has a history of dilated nonischemic cardiomyopathy status post automatic implanted cardiac defibrillator several years ago. She did have hypokalemia and hypomagnesemia. We did supplement that and she has been put on amiodarone 400 mg twice a day for 2 weeks and then at time of discharge, and decrease the amiodarone to 200 mg a day. Continue to supplement potassium and magnesium and follow those closely. 2. Oncology, Dr. Oralia Tsai discussed the prognosis and possible treatment and I did discuss with the daughter the possibility of the turning off the automatic implantable defibrillator at some point, if they desire. 3. History of lymphoma in the remote past. 4. Diabetes mellitus. Sugars under good control. 5. History of hyperlipidemia. cc: Javier Pena MD
[2016-11-27] MEDS: ROCEPHIN 1 GM/NS 1 GM/50 ML IVPB IV SCH (13:17)
[2016-11-27] MEDS: XARELTO PO SCH (17:01)
[2016-11-27] MEDS: DESYREL PO SCH (21:15)
[2016-11-27] MEDS: PRAVACHOL PO SCH (21:15)
[2016-11-28] MEDS: SYNTHROID PO SCH (06:13)
[2016-11-28] MEDS: PRILOSEC PO SCH (06:13)
[2016-11-28 06:58] LABS: MANUAL DIFF NEEDED? NO
[2016-11-28 07:13] LABS: BASO% 0.1 % (0.0-0.8); EOS# 0.07 X1000 (0.0-0.7); EOS% 0.9 % (0.0-10.0); HEMOGLOBIN 10.1 g/dL (12.0-16.0); LYMPH# 0.99 X1000 (1.2-3.4); LYMPH% 13.4 % (20.5-51.1); MCH 31.9 PG (27-31); MCHC 32.6 g/dL (33-37); MCV 97.8 FL (81-99); MONO# 0.78 X1000 (0.11-0.59); MONO% 10.5 % (1.7-9.3); MPV 11.5 FL (7.4-10.4); NEUT% 75.1 % (42.2-75.2); PLT 153 X1000 (130-400); RBC 3.17 XMIL (4.2-5.4)
[2016-11-28 07:28] LABS: CALCIUM 9.1 mg/dL (8.8-10.2); MAGNESIUM 1.9 mg/dL (1.5-2.7); POTASSIUM 4.4 mmol/L (3.5-5.1)
[2016-11-28] MEDS: CORDARONE PO SCH ×3 (09:42→16:25)
[2016-11-28] MEDS: LASIX PO SCH (09:42)
[2016-11-28] MEDS: PRINIVIL PO SCH (09:42)
[2016-11-28] MEDS: MAG-OX PO SCH ×2 (09:42→21:04)
[2016-11-28] MEDS: NEURONTIN PO SCH ×3 (09:42→16:25)
[2016-11-28] MEDS: HYDROXYZINE PO SCH ×2 (09:42→21:05)
[2016-11-28] MEDS: KLOR-CON PO SCH (09:43)
[2016-11-28] MEDS: COREG PO SCH ×2 (09:43→21:05)
[2016-11-28] MEDS: LUVOX PO SCH ×2 (09:44→21:05)
[2016-11-28] MEDS: ZYLOPRIM PO SCH (09:44)
[2016-11-28] MEDS: ALDACTONE PO SCH (09:44)
[2016-11-28] MEDS: ROCEPHIN 1 GM/NS 1 GM/50 ML IVPB IV SCH (12:51)
[2016-11-28] MEDS: XARELTO PO SCH (16:25)
--- NOTE | 2016-11-28 16:45 | PROGRESS NOTE ---
DATE: 11/28/2016 CHIEF COMPLAINT: Chest discomfort, cough. SUBJECTIVE: Ms. Sepulveda has not experienced any further chest discomfort from defibrillator jolts. Telemetry indicates that she is either paced or in a steady rhythm. She is tolerating current doses of amiodarone. She has complaint of some cramping pains in the legs. Otherwise, she is anxious to go back home. OBJECTIVE: Blood pressure is 115/51, temperature 97.4, pulse 75, respirations 20. General: Awake, alert and oriented, somewhat pale. HEENT is unremarkable. Chest: Diminished breath sounds bilaterally with some rhonchi. She is somewhat tachypneic. Heart sounds are regular and rhythm, no definite gallop or murmur. Abdomen: Nontender. Extremities showed no edema. Neurologic: Follows commands. Moves all 4 extremities. Awake, alert and oriented x3. DIAGNOSTIC DATA: Blood work today shows potassium is 4.4, magnesium is 1.9, BUN is 42, creatinine 1.6. Telemetry shows no arrhythmias. IMPRESSION: 1. The patient presented with recurrent defibrillator jolts from multiple bouts of ventricular tachycardia and ventricular fibrillation. She was essentially in an electrical storm, and apparently the trigger was persistent hypomagnesemia and hypokalemia. This has been corrected. 2. History of nonischemic dilated cardiomyopathy, status post AICD implantation. 3. History of advanced adenocarcinoma of the lung. RECOMMENDATIONS: From a cardiology viewpoint, I would continue amiodarone at present doses and upon discharge cut it down to 400 mg twice daily for 2 weeks and after 2 weeks make is 200 mg daily. The patient is supposed to make an appointment with her oncologist to discuss her short and medium term prognosis. If the family desires to turn off the AICD due to progression of her underlying malignancy, that could be done at any time. The office needs to be notified to arrange for that particular intervention. cc: Joseph Jackson MD
--- NOTE | 2016-11-28 18:44 | PROGRESS NOTE ---
DATE: 11/28/2016 SUBJECTIVE: Ms. Sepulveda is feeling better and doing better. She would like to go home tomorrow. She has not had any further arrhythmia and she would like to see if she could talk to Dr. Tsai but otherwise will schedule her appointment for next week. OBJECTIVE: Vital signs: She remains afebrile, temperature 97.4 degrees, pulse 70, respirations 20, blood pressure 115/51. HEENT: Pupils are equal, round. Lungs: Are clear in all lung tilley. Cardiovascular: Regular rhythm and rate without murmur or S3. REVIEW OF LAB: From today white count 7400, hematocrit 31, platelet count 153,000. Chemistries looked good. Potassium supplemented, magnesium is back up to 1.9, serum creatinine stable at 1.6. ASSESSMENT AND PLAN: 1. Presented with recurrent defibrillator jolts from multiple bouts of ventricular tachycardia, ventricular fibrillation since was essentially in electrical storm and apparently the trigger was persistent hypomagnesemia and hypokalemia which has been corrected. She is doing well. Hope to send her home tomorrow. 2. Nonischemic dilated cardiomyopathy status post implantable cardioverter defibrillator implantation. 3. Advanced adenocarcinoma lung. Will let her discuss with Dr. Tsai potential treatment. cc: Javier Pena MD
[2016-11-28] MEDS: DESYREL PO SCH (21:05)
[2016-11-28] MEDS: PRAVACHOL PO SCH (21:05)
[2016-11-29] MEDS: SYNTHROID PO SCH (06:09)
[2016-11-29] MEDS: PRILOSEC PO SCH (06:10)
[2016-11-29] MEDS: CORDARONE PO SCH (08:33)
[2016-11-29] MEDS: PRINIVIL PO SCH (08:33)
[2016-11-29] MEDS: ALDACTONE PO SCH (08:34)
[2016-11-29] MEDS: KLOR-CON PO SCH (08:34)
[2016-11-29] MEDS: COREG PO SCH (08:34)
[2016-11-29] MEDS: HYDROXYZINE PO SCH (08:34)
[2016-11-29] MEDS: LASIX PO SCH (08:34)
[2016-11-29] MEDS: MAG-OX PO SCH (08:34)
[2016-11-29] MEDS: ZYLOPRIM PO SCH (08:34)
[2016-11-29] MEDS: NEURONTIN PO SCH (08:34)
[2016-11-29] MEDS: LUVOX PO SCH (08:35)
[2016-11-29 08:38] VITALS: BP 118/62
--- NOTE | 2016-11-29 14:08 | DISCHARGE SUMMARY ---
ADMISSION DATE: 11/25/2016 DISCHARGE DATE: 11/29/2016 PRIMARY CARE PHYSICIAN: Dr. Mary Shah. ONCOLOGIST: Dr. Oraila Tsai. BREAK OUT WORKER: Dr. Monroe saw her here in the hospital. HISTORY AND HOSPITAL COURSE: She came in with weakness, frequent episodes of her defibrillator firing, and she had at least 20 discharges from her defibrillator. This is a 76-year-old with a past medical history of adenocarcinoma of the lung, diffuse B cell lymphoma. She has Adriamycin- induced cardiomyopathy, DVT, hyperlipidemia, reflux disease, prior history of ventricular tachycardia and ICD placement, hypothyroidism, and presented with the above. The defibrillator was interrogated. She had low potassium and low magnesium which was supplemented. Her films appear to show increased tumor load. Dr. Jackson was consulted for Cardiology, and she will follow with Dr. Tsai for possible other future treatments for lung cancer if there is anything available. She has stage IV lung cancer. She did still have some ventricular ectopy noted on monitor but had no further discharges. I did have a discussion with daughter about whether to keep the defibrillator engaged, and at this point, I think they want to. Will keep her on supplemental magnesium, potassium, follow up her electrolytes with her primary care and Dr. Tsai. I recommend that they check them once a week for a couple of weeks and to go from there. We did put her on amiodarone. She will take 400 mg, will cut it down to twice a day today, and then in a couple of weeks cut it down to once a day. DISCHARGE MEDICATIONS: She will be discharged allopurinol 300 mg a day, amiodarone 400 mg b.i.d., Coreg 3.125 mg b.i.d., Lasix 40 mg a day, Neurontin 300 mg t.i.d., hydroxyzine 25 mg b.i.d., Synthroid 50 mcg daily, Prinivil 5 mg a day, Ativan 0.5 to 1 mg I think she was taking t.i.d. p.r.n., magnesium oxide 800 mg b.i.d., Prilosec 40 mg a day, Klor-Con 20 mEq daily, Pravachol 10 mg at bedtime, Xarelto 20 mg a day, spironolactone 12.5 mg daily, Ultram 50 mg t.i.d. p.r.n., and Desyrel 150 mg daily. LABORATORY DATA: Her electrolytes checked on 11/28: Sodium 130, potassium 4.4, chloride 97, bicarbonate 28, BUN 11, creatinine 1.6. Do need to watch her creatinine. Note that it had bumped up from 0.8 to 1.6. cc: Javier Pena MD
--- NOTE | 2016-11-29 15:17 | CONSULTATION ---
DATE OF CONSULTATION: 11/29/2016 ADMITTING PHYSICIAN: Dr. Pena. REQUESTING PHYSICIAN: Dr. Pena. We appreciate this consult. CHIEF COMPLAINT: History of adenocarcinoma of the left lower lobe lung. HISTORY OF PRESENT ILLNESS: Ms. Sepulveda is a very pleasant, 76-year-old female, well known to Dr. Oralia Tsai with a history of T3NOMO adenocarcinoma of the left lower lobe lung status post lobectomy in December 2014, as well as 3 cycles of carboplatin and Taxol. The patient also carries a diagnosis of diffuse large B-cell lymphoma with chemo completed in 2005. Additionally, the patient suffers from Adriamycin-induced cardiomyopathy. Patient presented to [facility] Emergency Department complaining of 20 episodes of defibrillator firing over the course of approximately 2 hours. On presentation the patient was found to have suffered ventricular tachycardia secondary to hypomagnesemia and hypokalemia. The patient had her electrolytes repleted and is currently sitting up in bed in no immediate distress. She has had no further episodes of ventricular tachycardia. We are consulted secondary to her diagnosis of lung cancer. PAST MEDICAL HISTORY: 1. T3NOMO adenocarcinoma of the left lower lobe of the lung, status post lobectomy. 2. Diffuse large B-cell lymphoma. 3. Adriamycin-induced cardiomyopathy. 4. History of left lower extremity DVT. 5. Hypertension. 6. Hypomagnesemia. 7. Hypokalemia. PAST SURGICAL HISTORY: 1. Left lower lobe lobectomy. 2. AICD placement. 3. Port placement. 4. Sinus surgery. 5. Back surgery. 6. Radical lymph node dissection and forehead lift. SOCIAL HISTORY: The patient does not use tobacco, alcohol or illicit drugs. FAMILY HISTORY: Significant for lung cancer in her father and renal cell carcinoma in her mother. MEDICATIONS ON ADMISSION: 1. Allopurinol. 2. Coreg. 3. Luvox. 4. Lasix. 5. Neurontin. 6. Hydroxyzine. 7. Synthroid. 8. Lisinopril. 9. Lorazepam. 10. Metolazone. 11. Omeprazole. 12. Potassium. 13. Pravachol. 14. Promethazine. 15. Tramadol. 16. Trazodone. ALLERGIES: Amoxicillin, codeine, Lodine, pseudoephedrine, Zocor and Ambien. REVIEW OF SYSTEMS: A 14-point review of systems was obtained and is negative, except as mentioned in HPI. PHYSICAL EXAM: General: Ms. Sepulveda is a very pleasant, 76-year-old female, sitting up in bed in no immediate distress. Vital Signs: Temperature 97.7 degrees, blood pressure 118/62, heart rate 70, respirations are 20, O2 saturation is 92% on 3 L nasal cannula O2. HEENT: Normocephalic, atraumatic. Mucous membranes are pink and moist. Sclerae is anicteric. Extraocular movements intact. Neck: Supple. Lungs: Clear to auscultation bilaterally with decreased breath sounds in the left lower lobe. CV: S1, S2 is heard without murmur, rub or gallop. Abdomen: Soft, nondistended, nontender. Bowel sounds positive all quadrants. No rebound or guarding is noted. Extremities: Without clubbing, cyanosis, or edema. Dermatologic: No rashes, bruises or lesions. Neurologic: The patient is awake, alert, and oriented x3. She has no focal motor deficit at this time. LABORATORY DATA: Hemoglobin 10.1, hematocrit 31.0, white blood cell count 7.40, platelets 153. ANC is 5.55. Sodium 136, potassium 4.4, chloride 97, CO2 is 28, BUN 42, creatinine 1.6, glucose 103, calcium is 9.1, magnesium 1.9. Sputum cultures reveal 1+ gram-positive cocci. ASSESSMENT AND PLAN: 1. T3NOMO adenocarcinoma of the left lower lobe of the lung, status post lobectomy in December of 2014, status post 3 cycles of carboplatin and Taxol in 2014. 2. Diffuse large B-cell lymphoma with chemotherapy completed in 2005. 3. Adriamycin-induced cardiomyopathy. 4. Multiple episodes of ventricular tachycardia resulting in defibrillator shock. The patient has had no recurrence of ventricular tachycardia since admission. 5. Hypomagnesemia, hypokalemia which has been corrected per protocol. We would monitor labs at this time and correct as needed. We will follow along with you and make further recommendations pending outcomes. The above reflects the history, exam, assessment and plan of Dr. Carrera. Dictated by ANTHONY Somers for Gary Carrera MD cc: ANTHONY Somers MD
== END 2016-11-29 12:53 | disposition home or self-care (01) ==
LOC: ED 17:32 → SUATTDRO 22:43 → 3N 22:43
PROVIDERS: ATTEND Emergency Medicine

== ENCOUNTER 2017-02-22 18:40 | Inpatient (IN) ==
[2017-02-22] MEDS ORDERED: NS 1,000 ML IV ONE ×2 (19:04→21:28)
[2017-02-22 19:24] LABS: MANUAL DIFF NEEDED? NO
--- NOTE | 2017-02-22 19:25 | Diag Imaging Result Doc PS360 ---
EXAM: CHEST-PORTABLE HISTORY: fever TECHNIQUE: AP portable upright at 1920 COMMENT: There is bilateral lower lobe opacification. This appears slightly worse than on the previous study of 01/29/2017. The heart size is enlarged. There is apparent right hilar adenopathy/mass. IMPRESSION: Worsening of postobstructive pneumonitis bilaterally, presumably due to the patient's known bronchogenic carcinoma. Electronically signed by Wai Khan 02/22/2017 7:23 PM
[2017-02-22] MEDS ORDERED: ALBUTEROL NEB INH ONE (19:27)
[2017-02-22] MEDS ORDERED: DUONEB (A & A) INH ONE (19:27)
[2017-02-22 19:28] LABS: BASO% 0.1 % (0.0-0.8); HEMATOCRIT 35.6 % (37.0-47.0); HEMOGLOBIN 11.7 g/dL (12.0-16.0); IMM GRAN# 0.06 X1000 (0.0-0.04); IMM GRAN% 0.4 % (0.0-0.5); LYMPH# 0.79 X1000 (1.2-3.4); LYMPH% 5.6 % (20.5-51.1); MCH 29.2 PG (27-31); MCHC 32.9 g/dL (33-37); MCV 88.8 FL (81-99); MONO# 1.36 X1000 (0.11-0.59); MONO% 9.6 % (1.7-9.3); MPV 10.4 FL (7.4-10.4); NEUT% 84.3 % (42.2-75.2); PLT 185 X1000 (130-400); RBC 4.01 XMIL (4.2-5.4)
[2017-02-22] MEDS ORDERED: SOLU-MEDROL IV ONE (19:28)
[2017-02-22 19:59] LABS: ALBUMIN 2.9 g/dL (3.5-5.0); CALCIUM 9.1 mg/dL (8.8-10.2); MAGNESIUM 2.3 mg/dL (1.5-2.7); POTASSIUM 5.9 mmol/L (3.5-5.1); TOTAL BILIRUBIN 1.89 mg/dL (0.20-1.00); TOTAL PROTEIN 7.2 g/dL (6.3-8.3)
[2017-02-22 21:01] LABS: URINE SOURCE CATH
[2017-02-22 21:06] LABS: URINE MICRO REVIEW NEEDED? YES
[2017-02-22 21:07] LABS: BILIRUBIN URINE NEGATIVE (NEGATIVE); BLOOD URINE LARGE (NEGATIVE); COLOR YELLOW; GLUCOSE URINE NEGATIVE (NEGATIVE); LEUKOCYTES URINE MODERATE (NEGATIVE); NITRITE URINE NEGATIVE (NEGATIVE); PH URINE 5.5; PROTEIN URINE 30 mg/dL (NEGATIVE); SP GRAVITY URINE 1.017; TURBIDITY URINE HAZY (CLEAR); UR EPITHELIAL CELLS <10 /HPF (<10); URINE BACTERIA NEGATIVE /HPF; URINE CULTURE NEEDED? YES; URINE RBC TNTC /HPF (<10); URINE WBC <10 /HPF (<10); UROBILINOGEN URINE NORMAL (NORMAL)
[2017-02-22] MEDS ORDERED: ROCEPHIN 1 GM in NS 50 ML IV ONE (21:12)
[2017-02-22] MEDS ORDERED: TYLENOL PO ONE (21:22)
--- NOTE | 2017-02-22 21:22 | ED EKG INTERP ---
This chart was entered by Molly Suarez Scribe, acting as scribe for Rob Mejia MD. EKG Interpretation - EKG Time of EKG reading by physician:: 18:39 EKG Read and Signed by:: Rob Mejia EKG Interpretation (*Must complete 3 of following elements*): Abnormal Rate: 70 Rhythm: ventricular-paced rhythm QRS: normal Attestation - Physician/ KANWAL Attestation Patient care was provided by Advanced Practice Provider:: No The physician spent face to face time with patient:: Yes Advanced Practice Provider documentation review:: Supervising physician onsite and consulted in the evaluation and care of this patient. The physician did have a face to face encounter with the patient. This chart was documented by the indicated scribe, (Molly Suarez Scribe) and accurately reflects the services I performed and decisions made by me, Rob Ortega MD, as attested by the provider's signature.
--- NOTE | 2017-02-22 21:22 | PROVIDER DOCUMENTATION ---
This chart was entered by Molly Suarez Scribe, acting as scribe for Rob Mejia MD. HPI-General Adult - General Chief Complaint: Weakness Stated Complaint: WEAKNESS Time Seen by Provider: 02/22/17 18:49 Source: family Allergies/Adverse Reactions: Patient Allergies Allergy/AdvReac Type Severity Reaction Status Date / Time amoxicillin trihydrate * AdvReac Intermediate NAUSEA/VOMI Verified 02/22/17 18: 56 [From Augmentin] TING codeine [Codeine] AdvReac Intermediate NAUSEA/VOMI Verified 02/22/17 18:56 TING etodolac [From Lodine] AdvReac Intermediate NAUSEA/VOMI Verified 02/22/17 18:56 TING potassium clavulanate * AdvReac Intermediate NAUSEA/VOMI Verified 02/22/17 18:56 [From Augmentin] TING pseudoephedrine AdvReac Intermediate NAUSEA/VOMI Verified 02/22/17 18:56 TING simvastatin [From Zocor] AdvReac Intermediate NAUSEA/VOMI Verified 02/22/17 18: 56 TING zolpidem tartrate * AdvReac Intermediate NAUSEA/VOMI Verified 02/22/17 18:56 [From Ambien] TING Home Medications: Home Medication List Medication Instructions Recorded Confirmed Last Taken Type Apixaban [Eliquis] 5 mg PO BID 02/22/17 02/22/17 Unknown History Benzonatate 200 mg PO TID 02/22/17 02/22/17 Unknown History Calcium Carbonate/Mag Carb 1 each PO DAILY 02/22/17 02/22/17 Unknown History [Magnebind 300 Tablet] Fluvoxamine [Luvox] 100 mg PO BID 02/22/17 02/22/17 Unknown History Gabapentin 600 mg PO TID 02/22/17 02/22/17 Unknown History Hydrocodone Bit/Acetaminophen 2 each PO 4XDAY 02/22/17 02/22/17 Unknown History [Hydrocodon-Acetaminophen 5-325] Hydroxyzine 25 mg PO DAILY 02/22/17 02/22/17 Unknown History Levothyroxine Sodium [Levothroid] 50 mcg PO DAILY 02/22/17 02/22/17 Unknown History Lisinopril 5 mg PO DAILY 02/22/17 02/22/17 Unknown History Lorazepam [Ativan] 0.5 mg PO TID 02/22/17 02/22/17 Unknown History Metoprolol Succinate [Toprol Xl] 25 mg PO DAILY 02/22/17 02/22/17 Unknown History Omeprazole [Prilosec] 40 mg PO DAILY 02/22/17 02/22/17 Unknown History PRAVAstatin [Pravachol] 10 mg PO QHS 02/22/17 02/22/17 Unknown History Potassium Chloride 20 meq PO DAILY 02/22/17 02/22/17 Unknown History Promethazine [Phenergan Liquid] 6.25 mg PO DAILY 02/22/17 02/22/17 Unknown History Torsemide 40 mg PO DAILY 02/22/17 02/22/17 Unknown History Tramadol [Ultram] 50 mg PO Q6H PRN PRN 02/22/17 02/22/17 Unknown History Trazodone [Desyrel] 150 mg PO HS 02/22/17 02/22/17 Unknown History - History of Present Illness -Gen Adult Nature of Presenting Problems: Patient is a 76 year old female who presents in the ED with family with complaints of weakness. Family states patient has a history of lung cancer for which she is no longer on chemotherapy treatments, and states patient was prescribed Cymbalta on February 16, 2017. Family also states patient began having tremors and weakness in all extremities after starting Cymbalta, and states patient has also had increased sleeping/lethargy. 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 Family denies patient having nausea/vomiting and any other symptoms. Location of Pain/Injury: reports: none Pain Radiation: reports: no radiation Quality of Pain: reports: none Severity: reports: moderate Onset/Duration: reports: abrupt (02/16/17) Timing: reports: still present, improving Context/Activities at Onset: reports: other (new medication) Modifying Factors: improves with: nothing Associated Symptoms: reports: weakness, other (increased sleeping/lethargy) Similar Symptoms Previously?: No Recently seen or treated by another doctor?: Yes (PCP on 02/16/17) Review of Systems - Adult - REVIEW OF SYSTEMS - ADULT Constitutional: reports: see HPI, other (weakness, lethargy/increased sleeping) Eyes: reports: no symptoms reported Ears, Nose, Mouth & Throat: reports: no symptoms reported Cardiovascular: reports: no symptoms reported Respiratory: reports: no symptoms reported Gastrointestinal: reports: no symptoms reported. denies: nausea, vomiting Genitourinary: reports: no symptoms reported Musculoskeletal: reports: no symptoms reported Integumentary: reports: no symptoms reported Neurological: reports: no symptoms reported Psychiatric: reports: no symptoms reported Endocrine: reports: no symptoms reported Hematologic/Lymphatic: reports: no symptoms reported Allergic/Immunologic: reports: no symptoms reported All Other Systems: Reviewed and Negative Past History - Adult - PAST MEDICAL HISTORY-ADULT Review of Records: reports: Nursing Assessment Review, Medications Reviewed Major Childhood Illnesses: reports: denies history Cardiovascular: reports: pacemaker Respiratory: reports: cancer Gastrointestinal: reports: denies history Obstetrical/Gynecological: reports: denies history Genitourinary: reports: denies history Musculoskeletal: reports: denies history Neurological: reports: denies history Psychiatric: reports: denies history Endocrine/Immune: reports: Diabetes, thyroid disorder Other Conditions: reports: denies history - PRIOR SURGERIES/PROCEDURES Surgical/Procedure History: reports: other (partial lung resection l lung- tumor ) - IMMUNIZATION STATUS Childhood Immunizations: See Nurse Assessment Flu Vaccine: See Nurse Assessment - FAMILY HISTORY Family History: reviewed, not pertinent - SOCIAL HISTORY Smoking: non-smoker, quit greater than 1 year Substance Use: none/never Alcohol Use Frequency: never Living Situation: family Physical Exam-General - PHYSICAL EXAM-ADULT Initial Vital Signs Reviewed: Yes - CONSTITUTIONAL General Appearance: alert, no apparent distress - EYES Eyes: PERRL/EOMI, pink conjunctivae - HEAD, EARS, NOSE, MOUTH & THROAT HENMT: normocephalic/atraumatic, moist mucous membranes - NECK Neck: full range of motion - RESPIRATORY Respiratory: chest non-tender, lungs clear, normal breath sounds, no pleuratic chest pain, no respiratory distress, no accessory muscle use - CARDIOVASCULAR Cardiovascular: normal peripheral pulses, regular rate, rhythm, no edema, no gallop, no JVD, no murmur - GASTROINTESTINAL (ABDOMEN) Abdominal Exam: normal bowel sounds, non tender, soft, no organomegaly, no pulsatile mass - LYMPHATIC Lymphatic: no adenopathy - MUSCULOSKELETAL Back Exam: normal inspection Extremity: non-tender, no pedal edema, no calf tenderness, normal capillary refill, pelvis stable - SKIN Integumentary: normal color, normal turgor, warm/dry - NEUROLOGIC Neurologic: motor weakness (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) - PSYCHIATRIC Psych/Mental Status: normal mood/affect Progress - PLAN OF CARE/RESULTS Progress/Plan/Lab Results: Vital Signs - 8 hr 02/22/17 18:50 Temperature 100.4 F H Pulse Rate 70 Respiratory Rate 18 Blood Pressure 107/55 O2 Sat by Pulse Oximetry 84 L Laboratory Results - last 24 hr 02/22/17 18:46 POC Glucose 105 H Orders Category Date Time Status CHEST-PORTABLE [RAD] Stat Exams 02/22/17 19:06 Ordered BLOOD CULTURE [BLDCUL] Stat Lab 02/22/17 19:07 Uncollected CBC WITH ELECTRONIC DIFF [HEME] Stat Lab 02/22/17 18:50 Uncollected CMP [COMPREHENSIVE METABOLIC PANEL] [CHEM] Stat Lab 02/22/17 18:50 Uncollected LACTATE, PLASMA [CHEM] Stat Lab 02/22/17 19:06 Uncollected MAGNESIUM [CHEM] Stat Lab 02/22/17 18:50 Uncollected 0.9% Sodium Chloride Inj [Ns] 1,000 ml Med 02/22/17 19:04 Active IV 999 mls/hr Result Diagrams: 02/22/17 19:07 02/22/17 19:07 - XRAY 1 XRAY Study: Chest Impression: Abnormal (Worsening of post obstructive pneumonitis bilaterally, presumably due to the patient's known bronchogenic carcinoma.) Departure - Departure Date of Disposition Decision: 02/22/17 Time of Disposition Decision: 21:18 DIAGNOSIS: Hyponatremia, Dehydration Lung cancer Qualifiers: Laterality: right Lung location: lower lobe of lung Qualified Code(s): C34.31 - Malignant neoplasm of lower lobe, right bronchus or lung UTI (urinary tract infection) Qualifiers: Urinary tract infection type: site unspecified Hematuria presence: with hematuria Qualified Code(s): N39.0 - Urinary tract infection, site not specified ; R31.9 - Hematuria, unspecified Disposition: ADMITTED INPATIENT 09 Certified Medical Emergency: Emergent Condition: Good Referrals and Follow-Ups: Mary Shah MD [Primary Care Provider] - - Critical Care Note This patient required my direct & personal management of CC.: No Attestation - Physician/ KANWAL Attestation Patient care was provided by Advanced Practice Provider:: No The physician spent face to face time with patient:: Yes Advanced Practice Provider documentation review:: Supervising physician onsite and consulted in the evaluation and care of this patient. The physician did have a face to face encounter with the patient. This chart was documented by the indicated scribe, (Molly Suarez Scribe) and accurately reflects the services I performed and decisions made by me, Rob Ortega MD, as attested by the provider's signature.
[2017-02-22] MEDS ORDERED: ULTRAM PO PRN (21:26)
[2017-02-22] MEDS ORDERED: OFIRMEV 1000 MG/ISOTONIC SOLN 1,000 MG/100 ML BOTTLE IV ONE (21:28)
[2017-02-22] MEDS ORDERED: NS 2,000 ML ONE (21:29)
[2017-02-22] MEDS ORDERED: NEO-SYNEPHRINE 50 MG in NS 250 ML IV SCH (22:30)
[2017-02-22] MEDS ORDERED: ZOFRAN IV PRN (22:30)
[2017-02-22] MEDS: NS 1,000 ML IV SCH (23:00)
[2017-02-23 01:32] LABS: CALCIUM 8.7 mg/dL (8.8-10.2); POTASSIUM 5.6 mmol/L (3.5-5.1)
[2017-02-23] MEDS: SYNTHROID PO SCH (06:10)
[2017-02-23 06:27] LABS: BASO% 0.1 % (0.0-0.8); EOS# 0.01 X1000 (0.0-0.7); EOS% 0.1 % (0.0-10.0); HEMATOCRIT 35.1 % (37.0-47.0); HEMOGLOBIN 11.4 g/dL (12.0-16.0); IMM GRAN# 0.05 X1000 (0.0-0.04); IMM GRAN% 0.4 % (0.0-0.5); LYMPH# 0.34 X1000 (1.2-3.4); LYMPH% 2.7 % (20.5-51.1); MANUAL DIFF NEEDED? YES; MCH 28.9 PG (27-31); MCHC 32.5 g/dL (33-37); MCV 89.1 FL (81-99); MONO# 0.23 X1000 (0.11-0.59); MONO% 1.8 % (1.7-9.3); MPV 10.5 FL (7.4-10.4); NEUT% 94.9 % (42.2-75.2); PLT 186 X1000 (130-400); RBC 3.94 XMIL (4.2-5.4)
[2017-02-23 06:40] LABS: BANDS 12 % (0-1); LYMPHS 4 % (21-51); MONO 2 % (1-9)
[2017-02-23 07:10] LABS: CALCIUM 7.8 mg/dL (8.8-10.2); POTASSIUM 5.4 mmol/L (3.5-5.1)
[2017-02-23] MEDS: PRILOSEC PO SCH (08:15)
[2017-02-23] MEDS: TESSALON PO SCH ×2 (08:15→18:27)
[2017-02-23] MEDS: NEURONTIN PO SCH ×3 (08:16→18:27)
[2017-02-23] MEDS: ELIQUIS PO SCH ×2 (08:16→20:28)
[2017-02-23] MEDS ORDERED: NORCO-5 PO SCH (09:00)
[2017-02-23] MEDS ORDERED: PHENERGAN PO SCH (09:00)
[2017-02-23] MEDS ORDERED: KLOR-CON PO SCH (09:00)
[2017-02-23] MEDS ORDERED: ATIVAN PO SCH (09:00)
[2017-02-23] MEDS ORDERED: TOPROL XL PO SCH (09:00)
[2017-02-23] MEDS ORDERED: HYDROXYZINE PO SCH (09:00)
--- NOTE | 2017-02-23 09:12 | EKG Report ---
Test Performed on : 02/22/2017 6:39:47 PM Test Reason : NO EKG ORDER Blood Pressure : / mmHG Vent. Rate : 070 BPM Atrial Rate : 041 BPM P-R Int : 000 ms QRS Dur : 176 ms QT Int : 448 ms P-R-T Axes : 000 -76 092 degrees QTc Int : 483 ms Ventricular-paced rhythm Abnormal ECG When compared with ECG of 25-NOV-2016 17:39, No significant change was found Unconfirmed Result
--- NOTE | 2017-02-23 12:09 | PROGRESS NOTE ---
DATE: 02/23/2017 SUBJECTIVE: The patient is lethargic. Apparently, the patient was given medication for pain and for nausea that, as per family, she was supposed to take it p.r.n., but here she was given as scheduled. No other issues, as per nursing staff overnight. As per family, who is at bedside, the patient is doing better. OBJECTIVE: Vital Signs: Temperature 97.0 degrees, heart rate 71, respiratory rate 18, blood pressure 126/91, O2 saturation 92% on 6 L nasal cannula. General: This is a chronically ill- looking and frail, 76-year-old female, lying in bed, in no acute distress. HEENT: Head is normocephalic, atraumatic. Anicteric sclerae. Pale conjunctivae. Mucous membranes moist. Neck: Supple. No JVD noted. No carotid bruits. No lymphadenopathy. Cardiovascular: S1, S2 heard. No murmurs, gallops, or rubs. Port a cath noted on the left chest. No erythema around it. Respiratory: There are decreased breath sounds globally, with mild expiratory wheezing and some rhonchi in both bases. The patient is not using any accessory muscles or having work of breathing. Abdomen: Soft, nontender to palpation. Nondistended. Bowel sounds present. No organomegaly Extremities: There is 1+ pitting edema in both lower extremities. Peripheral pulses present, but decreased. Neurological: The patient is sleepy and does not answer to verbal stimuli. Cranial nerves 2 through 12 are not possible to evaluate. LABORATORY DATA: White cell count 12.64, hemoglobin 11.4, hematocrit 35.1, platelets 186,000. Sodium 128, potassium 5.4, chloride 95, BUN 44, creatinine 2.2. Lactate has been checked today. Urine culture, preliminary result, did not show any growth. ASSESSMENT AND PLAN: 1. Acute hyponatremia, most likely secondary to fluid volume depletion and also related to medication. The patient has been started on Cymbalta, an SSRI medication. In any case, the patient has been started on gentle fluid resuscitation with normal saline at 75 mL/h rate, and the sodium has raised to 128.. At this point, we are going to continue with the same management. 2. Acute kidney injury, secondary to fluid volume depletion. The creatinine has improved from 2.6 to 2.2 today. We are going to continue with the same management and check BMP tomorrow. The patient has been on lisinopril. This medication has been stopped. 3. Hypotension. The patient has been started on Juan-Synephrine, and now she is on really small doses of the medication. We will continue with IV fluids and, probably, this medication is going to be stopped today. 4. Hyperkalemia. Potassium is still high at 5.9 yesterday and 5.4 today. We are going to continue with the same management. 5. Postobstructive pneumonitis. Solu-Medrol is being given to her here in the hospital. 6. Hypothyroidism. We have checked TSH and it is normal. We will continue with the same management. 7. B-cell lymphoma. Aware. Dr. Oralia Tsai, from Hematology-Oncology, has been consulted. 8. Possible urinary tract infection. The patient is on Rocephin. The urine culture, preliminary report, was negative. Apparently, the patient has a urethral stent in place , so we have consulted Urology to see if they are going to remove it or not. 9. Disposition: We will keep this patient in the ICU until vasopressors are discontinued. cc: Vitor Scanlon MD MTDD
[2017-02-23] MEDS: PATIENT'S OWN MED PO SCH (12:45)
[2017-02-23 12:59] LABS: CALCIUM 8.6 mg/dL (8.8-10.2); POTASSIUM 5.7 mmol/L (3.5-5.1)
[2017-02-23] MEDS ORDERED: PHENERGAN PO PRN (13:28)
[2017-02-23] MEDS ORDERED: NS 1,000 ML ONE (14:23)
[2017-02-23 18:25] LABS: CALCIUM 8.2 mg/dL (8.8-10.2); POTASSIUM 5.1 mmol/L (3.5-5.1)
[2017-02-23] MEDS: PRAVACHOL PO SCH (20:27)
[2017-02-23] MEDS: ROCEPHIN 1 GM in NS 50 ML IV SCH (20:27)
[2017-02-23] MEDS: DESYREL PO SCH (20:28)
[2017-02-23] MEDS: NORCO-5 PO PRN (20:43)
[2017-02-23] MEDS ORDERED: DESYREL PO SCH (21:00)
[2017-02-23] MEDS: NS 1,000 ML IV SCH (22:16)
[2017-02-24 01:11] LABS: CALCIUM 8.6 mg/dL (8.8-10.2); POTASSIUM 4.9 mmol/L (3.5-5.1)
[2017-02-24] MEDS: NORCO-5 PO PRN ×2 (04:29→20:06)
[2017-02-24 05:21] LABS: BASO% 0.1 % (0.0-0.8); HEMATOCRIT 35.5 % (37.0-47.0); HEMOGLOBIN 11.6 g/dL (12.0-16.0); IMM GRAN# 0.05 X1000 (0.0-0.04); IMM GRAN% 0.4 % (0.0-0.5); LYMPH# 0.41 X1000 (1.2-3.4); LYMPH% 3.4 % (20.5-51.1); MANUAL DIFF NEEDED? YES; MCH 29.3 PG (27-31); MCHC 32.7 g/dL (33-37); MCV 89.6 FL (81-99); MONO# 0.76 X1000 (0.11-0.59); MONO% 6.3 % (1.7-9.3); MPV 10.8 FL (7.4-10.4); NEUT% 89.8 % (42.2-75.2); PLT 195 X1000 (130-400); RBC 3.96 XMIL (4.2-5.4)
[2017-02-24 05:42] LABS: CALCIUM 9.1 mg/dL (8.8-10.2); POTASSIUM 5.3 mmol/L (3.5-5.1)
[2017-02-24] MEDS: SYNTHROID PO SCH (06:29)
[2017-02-24 06:48] LABS: BANDS 2 % (0-1); LYMPHS 4 % (21-51); MONO 5 % (1-9)
--- NOTE | 2017-02-24 08:05 | CONSULTATION ---
DATE OF CONSULTATION: 02/23/2017 ADMITTING PHYSICIAN: We cannot find the admitting physician. We appreciate this consult. CHIEF COMPLAINT: Lung cancer. HISTORY OF PRESENT ILLNESS: Ms. Sepulveda is a very unfortunate 76-year-old year old female with a past medical history of metastatic recurrent non-small cell lung cancer with intolerance to multiple lines of therapy. Most recently the patient has been on palliative care. She additionally has a history of diffuse B-cell lymphoma as well as Adriamycin induced cardiomyopathy, DVT, gout, hyperlipidemia, gastroesophageal reflux disease, and a history of ventricular tachycardia with ICD placement as well as hypothyroidism. The patient has had progressive weakness over the past 2-3 days and had stopped taking Cymbalta. She was brought to [facility] Emergency Department secondary to profound weakness and decrease in oral intake. The patient was found to have hyponatremia with a sodium of 120 and a BUN of 47 and creatinine of 2.6. Additionally the patient was found to be hyperkalemic with a potassium of 5.9. Urinalysis revealed a urinary tract infection as well. Chest x-ray was obtained which showed increased postobstructive pneumonitis bilaterally secondary to bronchogenic carcinoma. The patient was admitted for fluid resuscitation and IV antibiotics. After admission the patient became hypotensive and was transferred to the intensive care unit. We are consulted as the patient is well known to Dr. Oralia Tsai with a history of metastatic recurrent non-small cell lung cancer. PAST MEDICAL HISTORY: As in HPI. PAST SURGICAL HISTORY: 1. One lobectomy of left lung. 2. AICD placement. 3. Port-A-Cath placement. 4. Sinus surgery. 5. Back surgery. 6. Lymph node dissection. 7. Forehead lift. 8. Urethral stent placement. FAMILY HISTORY: Significant for lung cancer in the patient's father and renal cell carcinoma in the patient's mother. SOCIAL HISTORY: The patient does not use tobacco, alcohol, or illicit drugs. MEDICATIONS ON ADMISSION: 1. Hydroxyzine. 2. Neurontin. 3. Potassium chloride. 4. Omeprazole. 5. Luvox. 6. Lisinopril. 7. Cymbalta. 8. Levothyroxine. 9. Calcium carbonate/magnesium carbonate. 10. Phenergan. 11. Ambrose. 12. Ultram. 13. Torsemide. 14. Pravachol. 15. Eliquis. 16. Trazodone. 17. Ativan. 18. Benzoate. 19. Toprol-XL. ALLERGIES: 1. Augmentin. 2. Codeine. 3. Lodine. 4. Pseudoephedrine. 5. Ambien. 6. Zocor. REVIEW OF SYSTEMS: A 14 point review of systems was attempted and is unable to be obtained as patient is extremely somnolent and minimally responsive at this time. PHYSICAL EXAM: Ms. Sepulveda is a 76-year-old, female, lying supine in bed who appears quite weak.Vital Signs: Temp 97 degrees, blood pressure 126/91, heart rate 71, respirations 18, O2 saturation is 92 on 6 L nasal cannula O2. HEENT: Normocephalic, atraumatic. Mucous membranes are pink and somewhat dry. Sclerae is anicteric. Extraocular movements intact. Neck: Supple. Lungs: Clear to auscultation bilaterally. Chest expansion is equal bilaterally. CV: S1, S2 is heard without murmur, rub or gallop. Abdomen: Soft, nondistended, nontender. Bowel sounds positive all quadrants. No rebound or guarding noted. Extremities: Without clubbing, cyanosis, or edema. Dermatologic: No rashes, bruises or lesions. Neurologic: The patient is quite somnolent at this time and minimally responsive. She has no focal deficits. LABORATORY DATA: Hemoglobin 11.4, hematocrit 35.1, white blood cell count is 12.64. Platelets 186,000. Sodium 128, potassium 5.4, chloride 95, CO2 is 15, BUN 44, creatinine 2.2, and glucose is 103. ASSESSMENT AND PLAN: 1. Metastatic recurrent non-small cell lung cancer with intolerance to multiple lines of therapy currently off treatment and on palliative care. Treatment per Dr. Oralia Tsai. 2. B-cell lymphoma status post Adriamycin with Adriamycin-induced cardiomyopathy. 3. Acute hyponatremia currently improving. The patient is currently receiving hydration with normal saline. 4. Acute kidney insufficiency improving on gentle hydration at this time. 5. Hyperkalemia improving. Would monitor potassium and replete per protocol. 6. Postobstructive pneumonitis improved status post Solu-Medrol. 7. Deep venous thrombosis. The patient remains on Eliquis at this time. 8. We will follow along with you and make further recommendations pending outcomes. This is Eleonora Wood, Nurse Practitioner dictating a consult for Dr. Gary Carrera. This reflects the history, exam, and assessment and plan of Dr. Carrera. Dictated by ANTHONY Somers for Gary Carrera MD cc: ANTHONY Somers MD [facility]
[2017-02-24] MEDS: ELIQUIS PO SCH ×2 (08:10→20:07)
[2017-02-24] MEDS: TESSALON PO SCH ×3 (08:11→19:19)
[2017-02-24] MEDS: PRILOSEC PO SCH (08:13)
[2017-02-24] MEDS: NEURONTIN PO SCH ×3 (08:13→17:41)
--- NOTE | 2017-02-24 10:14 | HISTORY AND PHYSICAL ---
PRIMARY CARE PROVIDER: Dr. Mary Shah. ONCOLOGIST: Oralia Tsai. LEARNING OFFICER: Dr. Harinder Monroe. UROLOGIST: Dr. Barahona. CHIEF COMPLAINT: Weakness. HPI: Ms. Sepulveda is an unfortunate 76-year-old female with a past medical history of adenocarcinoma of the lung with diffuse B-cell lymphoma, Adriamycin induced cardiomyopathy, DVT, gout, hyperlipidemia, GERD and a prior history of ventricular tachycardia with ICD placement as well as hypothyroidism. She apparently according to the who is at the bedside is no longer a candidate for chemotherapy intervention. The patient is confused being only oriented to person and place disoriented to time and situation. The is somewhat of a poor historian. At any rate for the past 2-3 days she has had weakness and she was prescribed Cymbalta on February 16, apparently she began having tremors and increased weakness in all of her extremities and stopped taking the Cymbalta. She apparently did get some better however she continued to have decreased hand sharepoint architect, weakness and poor oral intake as well as increased lethargy and sleeping. On arrival to the emergency room a chest x-ray, EKG and laboratory data was obtained. Laboratory data was significant for a sodium of 120, a BUN of 47 and a creatinine of 2.6, potassium of 5.9 as well as a leukocyte esterase positive UTI. Chest x-ray showed increased postobstructive pneumonitis bilaterally secondary to her bronchiogenic carcinoma. Fluid resuscitation was started in the emergency room as well as IV Rocephin. The patient became hypotensive and she will be admitted inpatient to the ICU where she will likely stay longer than 2- 3 days. REVIEW OF SYSTEMS: Fourteen point review of systems conducted with the patient and family somewhat limited per patient condition and being a poor historian. Pertinent positives listed above in the HPI. All other systems reviewed and found to be negative. PAST MEDICAL HISTORY: See HPI. PREVIOUS SURGICAL HISTORY: 1. Notable for a lobectomy of the left lung. 2. AICD placement. 3. Right Port-A-Cath placement. 4. Sinus surgery. 5. Back surgery. 6. Radical lymph node dissection. 7. Forehead lift. 8. Urethral stent placement. FAMILY HISTORY: Heart disease in mother, sister has diabetes mellitus, father from lung cancer, her mother renal cell carcinoma. SOCIAL HISTORY: No tobacco, alcohol or illicit drug use or abuse. lives with her . ALLERGIES: To Augmentin causing nausea and vomiting, Codeine causing nausea and vomiting, Lodine causing nausea and vomiting, pseudoephedrine causing nausea and vomiting , Ambien causing nausea and vomiting and Zocor causing nausea and vomiting. HOME MEDICATIONS: 1. Hydroxyzine 25 mg p.o. daily. 2. Neurontin 600 mg p.o. t.i.d. 3. Potassium chloride 20 mEq p.o. daily. 4. Omeprazole 40 mg p.o. daily. 5. Luvox 100 mg p.o. b.i.d. 6. Lisinopril 5 mg p.o. daily. 7. Cymbalta unknown dosage patient has recently stopped taking this. 8. Levothyroxine sodium 50 mcg p.o. daily. 9. Calcium carbonate/magnesium carbonate 300 mg tab 1 p.o. daily. 10. Phenergan liquid 6.25 mg p.o. daily. 11. Devens 5 mg 1-2 p.o. 4 times a day. 12. Ultram 50 mg p.o. q.6 p.r.n. 13. Torsemide 40 mg p.o. daily. 14. Pravachol 10 mg p.o. at bedtime. 15. Eliquis 5 mg p.o. b.i.d. 16. Trazodone 150 mg p.o. at bedtime. 17. Ativan 0.5 mg p.o. t.i.d. 18. Benzoate 200 mg p.o. t.i.d. 19. Toprol-XL 25 mg p.o. daily. PHYSICAL EXAMINATION: VITAL SIGNS: Temperature 100.4 degrees, pulse 70, respirations 18-24, blood pressure 78/43, oxygen saturation 91% on 4 L nasal cannula. GENERAL: Unfortunate 76-year-old female is confused oriented to person and place, disoriented to situation and time. at bedside, no acute distress. HEENT: Head is atraumatic, normocephalic. Pupils equal, round, reactive to light. Extraocular eye movement intact. Sclerae is anicteric. The conjunctivae is mildly pale. Oral mucosa is dry with cracked lips noted. No oropharyngeal exudate or erythema. NECK: Was supple. No JVD. Trachea is midline. No carotid bruit. No lymphadenopathy. CHEST: Decreased bilaterally, mild expiratory wheezing, no rhonchi, no rales. Symmetrical rise and fall respirations, right Port-A-Cath noted. CARDIOVASCULAR: S1-S2 appreciated. No murmurs, gallops, rubs. Defibrillator noted on left chest area, regular rhythm. ABDOMEN: Soft, nondistended, nontender. Bowel sounds present all 4 quadrants. Normoactive. No pulsatile mass. No organomegaly. EXTREMITIES: 1+ pitting edema bilateral lower extremities. Decreased pedal pulses bilaterally. SKIN: Poor turgor noted. Tenting noted otherwise warm dry and intact. No acute lesions or rash. NEUROLOGICAL: Oriented to person and place, disoriented to time and situation. Cranial nerves 2- 12 otherwise grossly intact. DIAGNOSTIC DATA: Chest x-ray shows post obstructive pneumonitis and cardiomegaly. LABORATORY DATA: WBC 14.14, hemoglobin 11.7, hematocrit 35.6, platelet count 185,000, sodium 120, potassium 5.9, chloride 83, carbon dioxide 21, BUN 47, creatinine 2.6, glucose 94, plasma lactate 2.7. Urine positive for hematuria, leukocyte esterase positive. ASSESSMENT: 1. Acute hyponatremia secondary to fluid volume depletion. Sodium is 120. Patient has received fluid bolus in the emergency room, will recheck a sodium at midnight and trend q.6 hours, will hold patient's SSRI as is known to cause hyponatremia 2. Acute kidney injury secondary to fluid volume depletion, as noted above fluid bolusing has been administered, will continue normal saline with gentle fluid rehydration secondary to patient having cardiomyopathy with an ejection fraction around 45%. Will closely monitor fluid volume status. Hold patient's lisinopril which she is hypotensive also because this patient is known to worsen renal failure. 3. Hyperkalemia, hopeful that this will return to baseline as kidney function improves, hold patient's daily potassium supplementation, will also hold her diuretics. 4. Postobstructive pneumonitis, this is secondary to her adenocarcinoma of the lungs, Solu- Medrol was given in the emergency room, will monitor. 5. Hypothyroidism. Check TSH. Continue Synthroid. 6. Adenocarcinoma of the lung aware. 7. B-cell lymphoma aware, consult Dr. Oralia Rodriguez. 8. Probable urinary tract infection. Rocephin was given in the emergency room will continue, blood cultures and urine cultures are pending. Will consult Dr. Barahona for replacement of urethral stent which remains in place per the . Further recommendations per patient clinical course. 40 minutes of critical care time. Plan was reviewed with family and they verbalized understanding. Dictated by ANTHONY Frost for Zarina Salgado MD cc: MD Bernardo Izaguirre CRNP Bilal H. Piracha, MD [facility]
[2017-02-24] MEDS: PATIENT'S OWN MED PO SCH (11:08)
[2017-02-24] MEDS: NS 1,000 ML IV SCH (12:50)
[2017-02-24 13:08] LABS: CALCIUM 6.2 mg/dL (8.8-10.2); POTASSIUM 4.3 mmol/L (3.5-5.1)
--- NOTE | 2017-02-24 13:35 | PROGRESS NOTE ---
DATE: 02/24/2017 SUBJECTIVE: Today, Ms. Sepulveda referred to be doing a little better. She feels slightly stronger than before. Denies any chest pain or shortness of breath. OBJECTIVE: Vital Signs: Blood pressure is 120/80, pulse is 62, respirations 15 , temperature 96.6 degrees. The patient was saturating about 92% on 6 L. General: Ms. Sepulveda is a 76-year-old female. She is in bed. She seems to be in mild respiratory distress. HEENT: Mucosa is pink and moist. Anicteric. Acyanotic. Neck is supple. There is bilateral distention of superficial veins on the neck. Chest: Air entry is bilaterally reduced, more so to the right posterior lung field. There are a few bibasilar crepitations. Cardiovascular: Regular rate and rhythm. Abdomen is soft. Extremities: No pedal edema. BUTT WELDER: Patient is awake and alert. No focal neurological deficit. patient has ICD and pacemaker on the left anterior chest wall. She also has a port on the right anterior chest wall. Urine output 855. LABORATORY DATA: WBC is 12.05, hemoglobin is 11.6, platelet count of 195,000. Chemistry is reviewed. Sodium is 132, potassium is 5.3, chloride is 96, bicarb is 20. Creatinine is down to 2.0. ASSESSMENT: 1. Severe dehydration with hyponatremia. Will continue with fluids. 2. Acute kidney injury. Patient is improving. 3. Post obstructive pneumonitis. We will continue with the current antibiotics and steroids. 4. History of B-cell lymphoma and stage IV adenocarcinoma of the lungs noted. 5. Hypotension. Etiology could be multifactorial including sepsis as well as dehydration. Patient has been fluid resuscitated. Currently, blood pressure is normal, and the patient is off the phenylephrine. We are going to continue with the antibiotics. So far, blood cultures continue to be negative but we think the source of the infection is from the pneumonitis. 6. Neck and upper chest distended veins. 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 We will, however, do a CT scan without contrast to look at the lung parenchyma more critically for any other cause for her hypoxemia. cc: Adrien Castillo MD [facility]
--- NOTE | 2017-02-24 16:30 | PROGRESS NOTE ---
DATE: 02/24/2017 SUBJECTIVE: Ms. Sepulveda is here and reports that she is doing well overall. Her sister is at bedside. LABORATORY DATA: White blood cells 12.05, hemoglobin 11.6, hematocrit 35.5, platelets 195,000. Sodium 137, potassium 4.3, chloride 108, CO2 of 14, BUN 39, creatinine 1.3, glucose 108. OBJECTIVE: Vital Signs: Temperature 96.6 degrees, heart rate 62, respirations 15, blood pressure 120/80, and O2 saturation 92% on 6 liters nasal cannula. Cardiovascular: S1 and S2 heard. No murmurs, gallops, or rubs appreciated. Respiratory: The patient has wheezing and rhonchi bilaterally. Gastrointestinal: The abdomen is soft, nontender, nondistended with positive bowel sounds. Extremities: The patient has no peripheral edema noted. ASSESSMENT AND PLAN: 1. [id number] lung cancer, metastatic, recurrent. The patient has previously had multiple lines of therapy, as well as intolerance to multiple lines previously. She is currently on palliative care. There is no further treatment planned at this time. The patient's performance status has been slowly declining over the last several months. I did discuss with the patient and her sister today the possibility of maybe transitioning to hospice. They would still like to consider this. They have requested that we possibly incorporate home health when she is at home. 2. History of B-cell lymphoma. No evidence of recurrence. 3. Acute hyponatremia and severe dehydration. This is improved, as the patient has been receiving intravenous hydration. 4. Acute kidney injury. Again, improving with gentle hydration. 5. Postobstructive pneumonitis. The patient will continue with current management. Continue O2 support. Monitor closely. Dictated by RICHARD Redding for Oralia Tsai MD cc: Oralia Tsai MD I have seen and examined the patient and agree with the above A/P. Oralia TOMPKINS
--- NOTE | 2017-02-24 18:21 | CONSULTATION ---
DATE OF CONSULTATION: 02/24/2017 CONSULTING PHYSICIAN: Adrien Castillo MD REASON FOR CONSULTATION: For management of right ureteral stent. HISTORY OF PRESENT ILLNESS: This is a pleasant 76-year-old female with metastatic lung cancer, as well as B-cell lymphoma, cardiomyopathy, who has had right ureteral obstruction, for which she underwent cystoscopy with right retrograde pyelogram and placement of right ureteral stent on 10/30/2016. She was admitted to the hospital with weakness and was found to be hyponatremic and dehydrated, as well as in acute kidney injury. She was rehydrated and reports feeling much better today. The family had requested for me to come by and evaluate timing of ureteral stent management. Of note, there was suspicion for UTI, but final urine culture showed no growth. PAST MEDICAL HISTORY: Diffuse B-cell lymphoma, lung adenocarcinoma, history of DVT, hyperlipidemia, cardiomyopathy, GERD, gout, hypothyroidism. PAST SURGICAL HISTORY: Left lobectomy, ICD placement, Port-A-Cath placement, back surgery, sinus surgery, ureteral stent with cystoscopy and retrograde pyelogram. ALLERGIES: Augmentin and codeine, as well as iodine and Ambien and Zocor. MEDICATIONS: Please see medication reconciliation list, but pertinent medications include Eliquis. FAMILY HISTORY: Positive for renal cell carcinoma in her mother. SOCIAL HISTORY: Denies tobacco, alcohol, or drug use. REVIEW OF SYSTEMS: A review of 12 systems was negative except for the HPI. PHYSICAL EXAMINATION: Vital Signs: Temperature 97 degrees, pulse 60, blood pressure 114/72. General: No acute distress. Abdomen: Nontender, nondistended. Back: No CVA tenderness. Genitourinary: Bladder is nontender to palpation. Lymphatic: No groin lymphadenopathy. Dermatologic: No obvious skin rashes. Neurological: Alert and oriented x3. Psychiatric: Appropriate mood and affect. PERTINENT LABORATORY DATA: White cell count of 12,000, hematocrit 35, platelet count of 195,000. Creatinine of 1.3, which is down from 2.2 yesterday. PERTINENT IMAGES: None during this hospitalization. ASSESSMENT AND PLAN: A 76-year-old female with right ureteral obstruction, which has been managed with right ureteral stent. We discussed that it is an appropriate time for her to have a cystoscopy with stent replacement. There was a question of the patient going on hospice, but the patient and her at bedside today state they are not sure if she is ready for hospice and do want to be aggressive in terms of ureteral stent exchange. I have discussed that if she were to go on hospice, we could just remove the stent. She does deny any side effects from the stent. Hence, we agreed to exchange the stent at the earliest opportunity. We will plan for cystoscopy with right ureteral stent exchange in the next 1 to 2 days. Thank you for the consultation. cc: Aung Barahona MD
[2017-02-24 20:06] LABS: CALCIUM 6.9 mg/dL (8.8-10.2); POTASSIUM 4.1 mmol/L (3.5-5.1)
[2017-02-24] MEDS: ROCEPHIN 1 GM in NS 50 ML IV SCH (20:06)
[2017-02-24] MEDS: ATIVAN PO PRN (20:06)
[2017-02-24] MEDS: DESYREL PO SCH (20:07)
[2017-02-24] MEDS: PRAVACHOL PO SCH (20:07)
[2017-02-25] MEDS: NS 1,000 ML IV SCH (00:57)
[2017-02-25] MEDS: NORCO-5 PO PRN ×3 (01:42→22:01)
[2017-02-25] MEDS: ATIVAN PO PRN (01:43)
[2017-02-25 06:31] LABS: BASO% 0.1 % (0.0-0.8); EOS# 0.01 X1000 (0.0-0.7); EOS% 0.1 % (0.0-10.0); HEMATOCRIT 34.8 % (37.0-47.0); HEMOGLOBIN 11.5 g/dL (12.0-16.0); IMM GRAN# 0.05 X1000 (0.0-0.04); IMM GRAN% 0.5 % (0.0-0.5); LYMPH# 0.66 X1000 (1.2-3.4); LYMPH% 6.2 % (20.5-51.1); MANUAL DIFF NEEDED? YES; MCV 87.9 FL (81-99); MONO# 0.81 X1000 (0.11-0.59); MONO% 7.6 % (1.7-9.3); MPV 10.3 FL (7.4-10.4); NEUT% 85.5 % (42.2-75.2); PLT 193 X1000 (130-400); RBC 3.96 XMIL (4.2-5.4)
[2017-02-25 06:34] LABS: CALCIUM 8.4 mg/dL (8.8-10.2); POTASSIUM 4.7 mmol/L (3.5-5.1)
[2017-02-25] MEDS: SYNTHROID PO SCH (06:45)
[2017-02-25 06:58] LABS: LYMPHS 6 % (21-51); MONO 1 % (1-9)
--- NOTE | 2017-02-25 07:55 | Diag Imaging Result Doc PS360 ---
EXAM: CT THORAX W/O CONTRAST - 02/25/2017 HISTORY: postobstructive pneumonia TECHNIQUE: Without contrast per request the referring provider. Dose reduction protocol. COMPARISON: With contrast exam of 10/24/2016 FINDINGS: There is limitation of detail due to the absence of intravenous contrast into streak artifacts from patient's arms. There is cardiomegaly and there is cardiomediastinal shift to the left. There is opacity at the posterior base of left chest. These findings are grossly similar to the previous exam. There is increased opacity along the posterior right hemithorax. This may relate to some combination of tumor, atelectasis, and pleural fluid. There is hazy interstitial opacity at the right upper lobe. There are small nodular densities at the right middle lobe. There is no pneumothorax identified. IMPRESSION: Increased opacity at posterior right hemithorax compared to 10/24/2016. This may relate to some combination of tumor, atelectasis, pleural fluid. Interstitial infiltrate at right upper lobe. Small nodular opacities at right middle lobe. Opacity with volume loss at posterior left base, grossly similar to the previous exam. Electronically signed by Bertin Gordon 02/25/2017 7:53 AM
[2017-02-25] MEDS: NEURONTIN PO SCH ×3 (08:24→22:01)
[2017-02-25] MEDS: PRILOSEC PO SCH (08:24)
[2017-02-25] MEDS: TESSALON PO SCH ×3 (08:25→22:01)
[2017-02-25] MEDS: ELIQUIS PO SCH ×2 (08:25→22:06)
[2017-02-25] MEDS: PATIENT'S OWN MED PO SCH (08:30)
--- NOTE | 2017-02-25 14:51 | PROGRESS NOTE ---
DATE: 02/25/2017 SUBJECTIVE: Today, Ms. Sepulveda referred to be doing relatively stable. I understand her O2 saturation went low earlier today. OBJECTIVE: Vital signs: Blood pressure is 102/55, pulse of 60, respiration 22 , temperature 98.2 degrees. General: Ms. Sepulveda is a 76-year-old female. She is in bed , not seemingly distressed. HEENT: Mucosa is pink and moist. Anicteric and acyanotic. Neck: Supple. There is mild distention of the superficial veins on the neck. Chest: Air entry is bilaterally reduced, more so to the right posterior lung field, with some bibasilar crepitations. Cardiovascular: Regular rate and rhythm. No murmurs, no rubs, no gallops. Abdomen: Soft, nontender. Extremities: No pedal edema. Central nervous system: The patient is sleepy, but easily arousable. Not have any focal neurological deficit. LABORATORY DATA: WBC is 10.69, hemoglobin is 11.5, platelet count of 196,000. There are no bands on the peripheral smear. Chemistry is reviewed. Sodium is 135, potassium 4.7, chloride is 21, creatinine is down to 1.5. INPUT AND OUTPUT: Total urine output was 1575. The patient has an accumulative positive balance of 3189. DIAGNOSTIC STUDIES: A CT scan of the lungs, which was done yesterday, shows increased opacity at the posterior right hemithorax compared to the study done in October. There is interstitial infiltrate at the right upper lobe. There are some small nodular opacities at the right middle lobe. There is opacity with volume loss at the posterior left base, grossly similar to previous exams. ASSESSMENT: 1. Dehydration with hyponatremia. This is significantly improved. The patient seems to have some fluid, actually, in the lungs, so we will discontinue the IV fluids for now. 2. Hyponatremia. I think this is multifactorial, including dehydration and possible syndrome of inappropriate antidiuretic hormone secretion. The patient has been fluid resuscitated. We will give her a dose of Samsca to see if we can bring the sodium now up. 3. Post-obstructive pneumonia. We will continue with the current antibiotics. 4. Acute kidney injury. This is progressively improving. Creatinine is now down to 1.2, coming from 2.6, and the patient has adequate urine output. 5. Stage IV adenocarcinoma of the lungs and also previous B-cell lymphoma. The patient follows up with Dr. Tsai. So, in general, Ms. Sepulveda is relatively stable. She has been having hypoxemic spells, I think, mainly due to worsening of her underlying lung cancer, as well as some atelectasis. We will continue advising incentive spirometer use. We will transfer the patient from the ICU to regular floor, get her to sit up in a chair just to see if we can help to open up some of the atelectatic lung, and get Physical Therapy involved. We will continue with the antibiotics and all the other medications for her other comorbidities. cc: Adrien Castillo MD MTDD
[2017-02-25] MEDS: DESYREL PO SCH (22:06)
--- NOTE | 2017-02-25 22:14 | PROGRESS NOTE ---
DATE: 02/25/2017 SUBJECTIVE: Ms. Sepulveda is resting. Her is at bedside. She denies significant pain. She states she feels better overall. OBJECTIVE: Vital Signs: Temperature 97.1 degrees, pulse 60, blood pressure 106/54. General: No acute distress. Cachectic-appearing female. Abdomen: Nontender, nondistended. PERTINENT LABORATORY DATA: White cell count 11,000, platelet count of 193,000. Creatinine is 1.2. PERTINENT IMAGES: She had a CT of the chest done today revealing increased opacification of the right posterior hemithorax. ASSESSMENT AND PLAN: A 76-year-old female with metastatic lung cancer as well as B-cell lymphoma who has right ureteral stent which is due to be exchange. I have discussed with the patient and her cystoscopy with right ureteral stent exchange with the risks including, but not limited to bleeding, infection, injury to the bladder, injury to adjacent structures, and need for additional interventions explained. Again, they feel strongly about having stent exchanges as opposed to removed. She is not ready to be on hospice. PLAN: 1. Nothing per oral after midnight. 2. To operating room tomorrow morning for cystoscopy with right ureteral stent exchange. 3. From my standpoint, she is fine to remain on [employer]. cc: Aung Barahona MD
[2017-02-25] MEDS: ROCEPHIN 1 GM in NS 50 ML IV SCH (22:17)
[2017-02-26 06:30] LABS: MANUAL DIFF NEEDED? NO
[2017-02-26 06:31] LABS: BASO% 0.1 % (0.0-0.8); EOS# 0.01 X1000 (0.0-0.7); EOS% 0.1 % (0.0-10.0); HEMOGLOBIN 11.8 g/dL (12.0-16.0); IMM GRAN# 0.05 X1000 (0.0-0.04); IMM GRAN% 0.6 % (0.0-0.5); LYMPH# 0.65 X1000 (1.2-3.4); LYMPH% 7.9 % (20.5-51.1); MCH 29.1 PG (27-31); MCHC 32.8 g/dL (33-37); MCV 88.7 FL (81-99); MONO# 0.72 X1000 (0.11-0.59); MONO% 8.8 % (1.7-9.3); MPV 10.4 FL (7.4-10.4); NEUT% 82.5 % (42.2-75.2); PLT 199 X1000 (130-400); RBC 4.06 XMIL (4.2-5.4)
[2017-02-26] MEDS: SYNTHROID PO SCH (06:50)
[2017-02-26 06:51] LABS: AGAP 13; BUN 28 mg/dL (8-22); CALCIUM 8.8 mg/dL (8.8-10.2); CHLORIDE 101 mmol/L (98-107); COSMO 279; POTASSIUM 4.5 mmol/L (3.5-5.1); SODIUM 136 mmol/L (136-145); TCO2 22 mmol/L (25-35)
[2017-02-26] MEDS ORDERED: VERSED ONE (08:47)
[2017-02-26] MEDS ORDERED: DIPRIVAN 1% ONE (08:47)
[2017-02-26] MEDS ORDERED: XYLOCAINE-MPF 2% ONE (08:47)
--- NOTE | 2017-02-26 10:19 | Diag Imaging Result Doc PS360 ---
RETROGRADES 2 OR 3 FILMS - 02/26/2017 INDICATION: RIGHT RETROGRADE / RIGHT STENT PLACEMENT TECHNIQUE: Unilateral right ureterogram and stent placement. The exam was performed by the patient's urologist. 25 images were submitted. COMPARISON: 10/30/2016 FINDINGS: The existing right nephroureteral stent was removed. Contrast infusion demonstrated moderate hydronephrosis on the right side. The ureter appeared more normal. A right nephroureteral stent was replaced in good position. IMPRESSION: Right hydronephrosis compatible with UPJ obstruction. Successful right nephroureteral stent placement. Electronically signed by Haja Sheppard 02/26/2017 10:17 AM
--- NOTE | 2017-02-26 11:35 | Diag Imaging Result Doc PS360 ---
EXAM: CHEST-PORTABLE - 02/26/2017 HISTORY: low O2 sat TECHNIQUE: Portable chest 1105 COMPARISON: 02/22/2017 FINDINGS: There is mild cardiomegaly. There is transvenous cardiac pacemaker again seen. There are airspace disease and pleural fluid at the right base similar to the previous exam. There is increased airspace disease at the more superior right lung, particularly at the perihilar region. There is ill-defined opacity at the left base which appears grossly stable. There is no pneumothorax identified. Central venous catheter remains in place. IMPRESSION: Increased airspace disease on the right. Electronically signed by Bertin Gordon 02/26/2017 11:33 AM
[2017-02-26 12:16] LABS: ALLEN TEST YES; BLOOD TYPE ARTERIAL; DRAW SITE R RADIAL; METHB 0.9 % (0.0-1.5); O2(CT) 18.4 mL/dL (15.0-23.0); PCO2(98.6) 30 mmHg (35-45); PO2(98.6) 67 mmHg (60-100); SAMPLE BLOOD; SAO2 95.3 % (95.0-100.0); THB 14.1 g/dL (11.5-17.4); pH(98.6) 7.45 (7.35-7.45)
[2017-02-26 12:17] LABS: MODALITY PRB
[2017-02-26] MEDS: PATIENT'S OWN MED PO SCH (12:40)
[2017-02-26] MEDS: NEURONTIN PO SCH ×3 (12:49→18:55)
[2017-02-26] MEDS: ELIQUIS PO SCH ×2 (12:49→21:26)
[2017-02-26] MEDS: PRILOSEC PO SCH (12:50)
[2017-02-26] MEDS: TESSALON PO SCH ×3 (12:50→18:56)
[2017-02-26] MEDS: CALMOSEPTINE OINTMENT TOP PRN (12:52)
--- NOTE | 2017-02-26 13:44 | OPERATIVE NOTE ---
PROCEDURE DATE: 02/26/2017 PREOPERATIVE DIAGNOSES: 1. Right ureteral obstruction. 2. Hydronephrosis. 3. Indwelling ureteral stent. 4. Metastatic lung cancer. 5. Lymphoma. POSTOPERATIVE DIAGNOSES: 1. Right ureteral obstruction. 2. Hydronephrosis. 3. Indwelling ureteral stent. 4. Metastatic lung cancer. 5. Lymphoma. PROCEDURES PERFORMED: 1. Cystoscopy. 2. Right retrograde pyelogram. 3. Right ureteral stent exchange (6 [place] Islander, 24 cm). SURGEON: Aung Barahona MD INDICATIONS: This is a 76-year-old female with right ureteral obstruction, managed with ureteral stents. Her last stent placement was in October 2016. She presents for routine exchange. FINDINGS: Right retrograde pyelogram revealing persistent hydroureteronephrosis from the mid ureter up, successful stent exchange. DESCRIPTION OF PROCEDURE: After obtaining informed consent, the patient was brought to the operating room. Perioperative antibiotics and monitored anesthesia care was administered. She was placed in lithotomy position and prepped and draped in a sterile fashion. A 21-Sol[place] Islander rigid cystoscope was used to gain access to the bladder, which was examined in systematic fashion. She had no evidence of mucosal lesions, excessive trabeculations, or diverticula noted. The stent was seen emanating from the right ureteral orifice. Rigid graspers were used to bring the stent out to the urethral meatus. A PTFE wire was introduced via the stent and appeared to kink at the level of the mid to proximal ureter. Hence, I placed an open-ended ureteral catheter via the wire and performed right retrograde pyelogram in order to better delineate the anatomy. She appeared to have a low-riding renal pelvis with a kink at the ureteropelvic junction, according to retrograde pyelogram. She had proximal ureteral dilation as well as dilation of the renal pelvis. I then introduced a wire and radiographically confirmed its insertion into the right renal pelvis. A 6-Sol[place] Islander, 24 cm stent was then used over the wire via the cystoscope to introduce it with the proximal coil position confirmed fluoroscopically and distal coil directly visualized. The string was detached from the stent. The bladder was emptied, cystoscope was removed, and the 16-Solomon Islander Rocha catheter was inserted. She was awakened and taken to the PACU for further recovery. ESTIMATED BLOOD LOSS: None. COMPLICATIONS: None. DISPOSITION: Back to the floor. I have discussed with the family that should she continue to have her stents exchanged, we could wait approximately 6 months before the next exchange given that her old stent was mildly encrusted. cc: Aung Barahona MD
[2017-02-26] MEDS ORDERED: LASIX IV ONE (14:05)
--- NOTE | 2017-02-26 14:59 | PROGRESS NOTE ---
DATE: 02/26/2017 SUBJECTIVE: Today, Ms. Sepulveda actually requested if we could discharge her. However, she continues to be remarkably sick. Her sister and another male family member was at the bedside at the time of the encounter. Ms. Sepulveda went for exchange of stent. OBJECTIVE: Vital Signs: Blood pressure 100/56, pulse is 59, respiration is 16, temperature 98.0. Patient is saturating between 92-95 on a non-rebreather with oxygen flow this afternoon of 15. General: Ms. Sepulveda is a 76-year-old, female. She is in bed, on a non-rebreather in mild respiratory distress. HEENT: Mucosa is pink and moist. Anicteric. Acyanotic. Neck: There is positive JVD. Lungs: Air entry is bilaterally reduced. There is some bilateral posterior crepitations. Cardiovascular: Regular rate and rhythm. No murmurs, no rubs. No gallops. Abdomen: Soft, nontender. The bowel sounds are present. Extremities: No pedal edema. SOAP GRINDER: Patient is more awake and alert today. Follows some basic commands and was very conversational today. LABORATORY DATA: WBC is 8.18, hemoglobin is 11.8, platelet count of 199. Chemistry is reviewed. Completely normal. Creatinine has normalized to 0.9. A chest x-ray this morning continues to show mild cardiomegaly. There is air-space disease and pleural fluid at the right base similar to previous exams. There is increased air-space disease at more superior right lung, particularly at the perihilar region. There is still ill-defined opacity at the left base which appears grossly stable. No pneumothorax. CURRENT MEDICATIONS: Ceftriaxone 1 g q.24. Eliquis 5 mg b.i.d., levothyroxine 50 mcg daily. Gabapentin 600, three times per day. Phenergan p.r.n. ASSESSMENT: 1. Dehydration with hyponatremia on presentation. This is improved. 2. Acute kidney injury resolved, creatinine has normalized. 3. Stage IV adenocarcinoma of the lungs and also previous B-cell lymphoma. Dr. Tsai is on board. 4. Postobstructive pneumonia. We will continue with the current antibiotics. 5. Diarrhea. The patient is on antibiotics, so we will do a Clostridium difficile antigen and toxin to make sure we rule out any Clostridium difficile colitis. 6. Hyponatremia, improved. 7. Respiratory distress. I think it is a combination of her atelectasis, the lung cancer, and also some pleural fluid. Will give her some Lasix to help bring some of the fluid up and go from there. cc: Adrien Castillo MD
[2017-02-26] MEDS: ROCEPHIN 1 GM in NS 50 ML IV SCH (21:23)
[2017-02-26] MEDS: DESYREL PO SCH (21:26)
[2017-02-26] MEDS: NORCO-5 PO PRN (23:39)
[2017-02-27] MEDS: SYNTHROID PO SCH (06:43)
[2017-02-27 07:25] LABS: AGAP 16; BUN 19 mg/dL (8-22); CALCIUM 8.5 mg/dL (8.8-10.2); CHLORIDE 101 mmol/L (98-107); COSMO 279; POTASSIUM 4.3 mmol/L (3.5-5.1); SODIUM 138 mmol/L (136-145); TCO2 21 mmol/L (25-35)
[2017-02-27] MEDS: PATIENT'S OWN MED PO SCH (08:41)
[2017-02-27] MEDS: PRILOSEC PO SCH (08:42)
[2017-02-27] MEDS: ELIQUIS PO SCH ×2 (08:43→21:08)
[2017-02-27] MEDS: TESSALON PO SCH ×3 (08:43→18:23)
[2017-02-27] MEDS: NEURONTIN PO SCH ×3 (08:43→18:23)
--- NOTE | 2017-02-27 14:08 | PROGRESS NOTE ---
DATE: 02/25/2017 SUBJECTIVE: Ms. Sepulveda has no new complaints at this time. OBJECTIVE: Vital Signs: Temperature 97.2 degrees, respirations 22, heart rate 60, blood pressure 108/87, O2 saturation 92% on 6 L nasal cannula. CARDIOVASCULAR: S1, S2 heard. Respiratory: Patient has scattered rhonchi with wheezing noted. Coarse breath sounds. Abdomen: Soft, nontender, nondistended with positive bowel sounds. Extremities: No peripheral edema in bilateral lower extremities. LABORATORY: White blood cells 10.67, hemoglobin 11.5, hematocrit 34.8, platelets 193,000. Sodium 135, potassium 4.7, chloride 100, CO2 21, BUN 38, creatinine 1.2, glucose 89. ASSESSMENT AND PLAN: 1. Metastatic non-small cell lung cancer. The patient has previously been intolerant to several lines of therapy. She is currently not receiving any treatment. We have discussed hospice with the patient and family. They have declined at this time. 2. Postobstructive pneumonia. Continue O2 support. Antibiotics. 3. Dehydration and hyponatremia. These are slowly improving. Continue gentle hydration. 4. Acute kidney injury. Again, this is improving with gentle hydration. Continue. 5. History of B-cell lymphoma. No evidence of recurrence. Dictated by RICHARD Redding for Oralia Tsai MD cc: Oralia Tsai MD I have seen and examined the patient and agree with the above A/P. Oralia TOMPKINS
--- NOTE | 2017-02-27 17:10 | PROGRESS NOTE ---
DATE: 02/27/2017 SUBJECTIVE: Today, Ms. Sepulveda is a 76-year-old, female, refers to be doing fine. Denies any pains. Was actually requesting if we could send her home. She continues to have some shortness of breath, however. OBJECTIVE: Vital signs: Blood pressure is 117/99, pulse is 73, respirations 26, temperature 98.8. General: Ms. Sepulveda is a 76-year-old, female. She was in bed. Mild respiratory distress. She continues to be on a nasal cannula, breathing about 95%. HEENT: Mucosa is pink and moist. Anicteric. Acyanotic. Neck: Supple. Chest: Air entry is bilaterally reduced. There is some bilateral posterior crepitations. Cardiovascular: Regular rate and rhythm. There are no murmurs, no rubs, no gallops. Abdomen: Soft, nontender. Bowel sounds are present. Extremities: No pedal edema. LINE PALLETIZER: Patient is awake and alert. More jovial and communicative today. Patient follows command. LABORATORY DATA: Chemistry is reviewed. Creatinine has normalized. Calcium is also improved. ASSESSMENT: 1. Dehydration with hyponatremia on presentation, improved. 2. Acute kidney injury, resolved. 3. Stage IV adenocarcinoma of the lungs and also previous B-cell lymphoma. 4. Post obstructive pneumonia. We will continue with the current antibiotics, including ceftriaxone. Today is day 4 on IV medications. 5. Respiratory distress improving. We will repeat a chest x-ray tomorrow morning to follow up on the lung parenchyma. 6. Hematuria. Patient had a right ureteral stent exchanged yesterday by Dr. Barahona. Will be waiting for him to review the patient today in terms of the hematuria. However, patient denies any pain and she is making adequate urine. PLAN: So, in general, I think Ms. Sepulveda is doing relatively fine. We are going to put her on mechanical soft diet today and encourage her to sit up. Consult PT so that they can start working with her and start the process of her discharge. I understand the hematology/oncology team have discussed hospice with the patient. However at this point, they have declined to that option. cc: Adrien Castillo MD
[2017-02-27] MEDS: ROCEPHIN 1 GM in NS 50 ML IV SCH (21:08)
[2017-02-27] MEDS: DESYREL PO SCH (21:08)
[2017-02-27] MEDS: NORCO-5 PO PRN (21:09)
[2017-02-28] MEDS: NORCO-5 PO PRN ×2 (06:50→12:55)
[2017-02-28] MEDS: SYNTHROID PO SCH (06:50)
[2017-02-28 07:09] LABS: AGAP 7; BUN 12 mg/dL (8-22); CALCIUM 9.3 mg/dL (8.8-10.2); CHLORIDE 101 mmol/L (98-107); COSMO 276; POTASSIUM 3.8 mmol/L (3.5-5.1); SODIUM 138 mmol/L (136-145); TCO2 30 mmol/L (25-35)
[2017-02-28] MEDS: NEURONTIN PO SCH ×3 (09:52→16:38)
[2017-02-28] MEDS: PRILOSEC PO SCH (09:52)
[2017-02-28] MEDS: ELIQUIS PO SCH (09:52)
[2017-02-28] MEDS: TESSALON PO SCH ×3 (09:53→16:38)
[2017-02-28] MEDS: PATIENT'S OWN MED PO SCH (09:53)
--- NOTE | 2017-02-28 18:39 | PROGRESS NOTE ---
DATE: 02/28/2017 SUBJECTIVE: Today, Ms. Sepulveda was very delightful, happy. Inquired when she will be ready to go home. OBJECTIVE: Vital signs: Blood pressure is 103/69, pulse of 60, respirations 20, temperature 97.6 degrees. General: Ms. Sepulveda is a 76-year-old female. She was in bed. Did not seem to be in any remarkable distress. HEENT: Mucosa is pink and moist. Anicteric. Acyanotic. Neck: Supple. There is still some positive JVD. Chest: Air entry is bilaterally reduced. There are bilateral posterior crepitations. Cardiovascular: Regular rate and rhythm. No murmurs, no rubs, no gallops. Abdomen: Soft, is distended. Bowel sounds are present. No hepatosplenomegaly. Extremities: No pedal edema. Central nervous system: The patient is awake and alert, and follows commands. LABORATORY DATA: Chemistry is completely normal. Sodium is 138, potassium is 3.8, chloride is 101, bicarb is 30, BUN is 12, and creatinine is down to 0.7. ASSESSMENT: 1. Severe dehydration with hyponatremia on presentation resolved. 2. Acute kidney injury, secondary to #1, resolved. 3. Stage IV adenocarcinoma of the lungs and also previous B-cell lymphoma. The patient follows up with Dr. Tsai. 4. Post-obstructive pneumonia. Will continue with the current antibiotics. Today is day 5 on ceftriaxone. 5. Respiratory distress, secondary to pneumonia and some pulmonary edema. This is improving. The patient is currently on only nasal cannula. 6. Hematuria after right ureter stent exchanged. I spoke today with Dr. Velasco, and he is said this is an anticipated finding after stent placement, and he will not do anything different; however, if the patient is on any anticoagulants, then that should be withheld. Currently, she is on Eliquis, so will withhold this until the bleeding has stopped, and then we will restart. PLAN: In terms of disposition, Ms. Sepulveda prefers to go home with home health. She does not want to go to any rehab and, at this point, also does not want to be on any hospice. Anticipate that by Thursday we should be able to discharge Ms. Sepulveda. cc: Adrien Castillo MD
[2017-02-28] MEDS: ROCEPHIN 1 GM in NS 50 ML IV SCH (20:31)
[2017-02-28] MEDS: DESYREL PO SCH (20:31)
[2017-03-01] MEDS: MUCINEX PO SCH ×2 (03:17→16:44)
[2017-03-01] MEDS: ATIVAN PO PRN ×2 (04:17→18:20)
[2017-03-01] MEDS: SYNTHROID PO SCH (06:13)
[2017-03-01 07:18] LABS: AGAP 11; BUN 12 mg/dL (8-22); CALCIUM 8.4 mg/dL (8.8-10.2); CHLORIDE 101 mmol/L (98-107); COSMO 274; POTASSIUM 4.3 mmol/L (3.5-5.1); SODIUM 137 mmol/L (136-145); TCO2 25 mmol/L (25-35)
--- NOTE | 2017-03-01 07:54 | Diag Imaging Result Doc PS360 ---
CHEST-PORTABLE - 03/01/2017 INDICATION: dyspnea TECHNIQUE: COMPARISON: 02/26/2017 FINDINGS: Stable left-sided pacemaker. Stable right chest port. Stable cardiomegaly. No significant change in the right basilar and hilum are airspace opacities due to consolidation and/or effusion. The left lung remains fairly clear. IMPRESSION: No change from prior. Electronically signed by Haja Sheppard 03/01/2017 7:51 AM
[2017-03-01] MEDS: PRILOSEC PO SCH (08:58)
[2017-03-01] MEDS: TESSALON PO SCH ×4 (08:58→17:57)
[2017-03-01] MEDS: NORCO-5 PO PRN (08:58)
[2017-03-01] MEDS: NEURONTIN PO SCH ×4 (08:58→17:56)
[2017-03-01] MEDS: PATIENT'S OWN MED PO SCH (08:59)
--- NOTE | 2017-03-01 18:06 | PROGRESS NOTE ---
DATE: 03/01/2017 SUBJECTIVE: Today, Ms. Sepulveda refers to be doing a little better. Requested to know when she will be able to go home. OBJECTIVE: Vital signs: Blood pressure is 119/79. The patient is saturating 98% on nasal cannula. general: Ms. Sepulveda is a 76-year-old female. She is in bed. Did not seem to be in any remarkable distress. HEENT: Mucosa is pink and moist. Anicteric. Acyanotic. Neck: Supple. Slight JVD is noted. Chest: Air entry is bilaterally reduced. There are still some bilateral posterior crepitations. Cardiovascular: Regular rate and rhythm. No murmurs, no rubs, no gallops. Abdomen: Soft, distended, but nontender. Bowel sounds are present. There is no hepatosplenomegaly. central nervous system: The patient is awake, alert and oriented. There is no focal neurological deficit. LABORATORY DATA: Chemistry is reviewed and completely normal. IMAGING: Chest x-ray this morning continues to have stable cardiomegaly. No significant change in the right basilar, hilum, or airspace opacity due to consolidation and/or effusions. ASSESSMENT: 1. Severe dehydration and hyponatremia on presentation, resolved. 2. Acute kidney injury, secondary to #1, resolved. 3. Stage IV adenocarcinoma of lungs, and also previous B-cell lymphoma noted. 4. Right-sided postobstructive pneumonia. The patient continues to be on antibiotics. Today is day 6 on ceftriaxone. 5. Respiratory distress, secondary to pneumonia, pulmonary edema and lung cancer. 6. Hematuria after right ureteral stent exchange. I discussed this with Dr. Velasco, and this is expected. Eliquis has been discontinued. DISPOSITION: After a very lengthy talk with the sister, the and Ms. Sepulveda herself, Ms Sepulveda has now decided to go to rehab. Prefers to go to [place], so we will consult pediatric social worker tomorrow for arrangements to go to [place]. cc: Adrien Castillo MD
[2017-03-01] MEDS: ROCEPHIN 1 GM in NS 50 ML IV SCH (20:55)
[2017-03-01] MEDS: DESYREL PO SCH (20:56)
[2017-03-02] MEDS: ATIVAN PO PRN ×2 (00:28→05:03)
[2017-03-02] MEDS: TYLENOL PO PRN (01:58)
[2017-03-02] MEDS: MUCINEX PO SCH ×3 (01:59→16:18)
[2017-03-02] MEDS: SYNTHROID PO SCH (06:29)
[2017-03-02] MEDS: NEURONTIN PO SCH ×3 (09:19→16:19)
[2017-03-02] MEDS: PRILOSEC PO SCH (09:19)
[2017-03-02] MEDS: TESSALON PO SCH ×3 (09:19→16:19)
[2017-03-02] MEDS: PATIENT'S OWN MED PO SCH (09:21)
[2017-03-02] MEDS ORDERED: MORPHINE IV ONE (10:04)
--- NOTE | 2017-03-02 11:01 | PROGRESS NOTE ---
DATE: 03/02/2017 SUBJECTIVE: I saw Ms. Sepulveda today. She was sitting up in a chair. Her was at the bedside as well as a sister. She refers to be doing relatively fine. She still had some residual shortness of breath. OBJECTIVE: Vital Signs: Blood pressure is 133/76, pulse of 70, respirations are 18, temperature is 98.2 degrees. Patient is saturating 91% on nasal cannula. General Examination: Ms. Sepulveda is a 76-year-old, female. She was sitting up in a chair. Not seemingly distressed. HEENT: Mucosa is pink. Anicteric and acyanotic. Neck: Supple. Chest: Air entry is bilaterally reduced. There are bilateral crepitations in both lung tilley, more so on the right posterior lung field. Cardiovascular: Regular rate and rhythm. There are no murmurs no rubs, no gallops. Abdomen: Soft, distended. No hepatosplenomegaly. Bowel sounds are present. MANAGER UNION: Patient is awake, alert, oriented. Generally, patient looks weak and debilitated. Laboratory Data: None for today. ASSESSMENT: 1. Acute hypoxemic respiratory failure. Patient continues to be on nasal cannula oxygenation. I think it is a combination of pneumonia, atelectasis, as well as pulmonary edema. 2. Severe dehydration and hyponatremia on presentation, improved. 3. Acute kidney injury secondary to dehydration, resolved. 4. Stage IV adenocarcinoma of the lungs. I think this is end-stage of the disease. The patient is getting more debilitated and I think it is due to the progression of the underlying disease. I have spoken extensively with the and the sister about the need for hospice evaluation. The seems to be inclined to the idea of hospice. However, the sister wants her to do at least a week of rehab to see if she can improve on her general physical strength. 5. Right side postobstructive pneumonia. Patient is on day 7 of ceftriaxone. We plan to treat this for a total of 10 days. Whenever patient is ready to be discharged, we can switch this to Augmentin. 6. Hematuria after a right ureteral stent exchange. Eliquis has been discontinued. 7. Generalized weakness and deconditioning secondary to underlying malignancy. PLAN: In general, I think Ms. Sepulveda has been in the hospital for a while. I think she has had all the benefit that the acute hospitalization can offer her at this time. She will need to go to rehab to see if her physical strength can also be restored. I think in general Ms. Sepulveda's condition is weak, has a very poor performance status, has stage IV lung cancer which seems to be getting worse. I think her general prognosis remains poor and dismal. She is a candidate for hospice. However, the sister and the patient herself have declined to go on hospice. We will be waiting the social work lecturer arrangements for rehab. Patient has made [facility] the choice of rehab she wants to go. cc: Adrien Castillo MD Later in the morning, there was a critical assist call on her. Upon arrival, Ms Sepulveda was in significant respiratory distress and saturating in low 80's. I reevaluated her. Spoke extensively with her about patient poor prognosis. He requested a DNR level 1 for her. Labs and xray were ordered. I requested her to be placed on Bipap for now. I also switched her to IV antibiotics. LEDA
[2017-03-02] MEDS: KLONOPIN PO SCH (11:06)
[2017-03-02] MEDS ORDERED: ATIVAN IV ONE (11:35)
[2017-03-02] MEDS ORDERED: NS 1,000 ML ONE (11:55)
[2017-03-02] MEDS ORDERED: LASIX IV ONE (11:59)
[2017-03-02 12:00] LABS: ALLEN TEST YES; BE -10.1 mmoll (-3.0-3.0); BLOOD TYPE ARTERIAL; DRAW SITE R RADIAL; METHB 0.7 % (0.0-1.5); O2(CT) 18.5 mL/dL (15.0-23.0); PCO2(98.6) 27 mmHg (35-45); PO2(98.6) 83 mmHg (60-100); SAMPLE BLOOD; SAO2 97.3 % (95.0-100.0); THB 13.8 g/dL (11.5-17.4); pH(98.6) 7.33 (7.35-7.45)
[2017-03-02 12:01] LABS: MODALITY NRB
[2017-03-02 12:19] LABS: MANUAL DIFF NEEDED? NO
[2017-03-02 12:24] LABS: BASO% 0.2 % (0.0-0.8); EOS# 0.05 X1000 (0.0-0.7); EOS% 0.4 % (0.0-10.0); HEMATOCRIT 41.6 % (37.0-47.0); HEMOGLOBIN 13.2 g/dL (12.0-16.0); IMM GRAN# 0.07 X1000 (0.0-0.04); IMM GRAN% 0.6 % (0.0-0.5); LYMPH# 1.64 X1000 (1.2-3.4); LYMPH% 14.3 % (20.5-51.1); MCH 29.3 PG (27-31); MCHC 31.7 g/dL (33-37); MCV 92.2 FL (81-99); MONO# 0.89 X1000 (0.11-0.59); MONO% 7.8 % (1.7-9.3); MPV 10.4 FL (7.4-10.4); NEUT% 76.7 % (42.2-75.2); PLT 247 X1000 (130-400); RBC 4.51 XMIL (4.2-5.4)
--- NOTE | 2017-03-02 12:28 | Diag Imaging Result Doc PS360 ---
EXAM: CHEST-PORTABLE HISTORY: sob TECHNIQUE: AP portable at 1210 COMMENT: There are patchy alveolar opacities in both lower lobes and the right upper lobe. There is some improvement in the right upper lobe since 03/01/2011. IMPRESSION: Pulmonary edema and/or pneumonia slightly improved. Electronically signed by Wai Khan 03/02/2017 12:26 PM
[2017-03-02] MEDS ORDERED: VANCOMYCIN IV PER PHARMACY MISC SCH (12:30)
[2017-03-02 12:39] LABS: AGAP 19; BUN 15 mg/dL (8-22); CALCIUM 9.7 mg/dL (8.8-10.2); CHLORIDE 94 mmol/L (98-107); COSMO 261; POTASSIUM 4.8 mmol/L (3.5-5.1); SODIUM 129 mmol/L (136-145); TCO2 16 mmol/L (25-35)
--- NOTE | 2017-03-02 13:04 | EKG Report ---
Test Performed on : 03/02/2017 11:48:59 AM Test Reason : sob Blood Pressure : / mmHG Vent. Rate : 070 BPM Atrial Rate : 312 BPM P-R Int : 000 ms QRS Dur : 104 ms QT Int : 374 ms P-R-T Axes : 000 -61 -61 degrees QTc Int : 403 ms Ventricular-paced rhythm Biventricular pacemaker detected Abnormal ECG When compared with ECG of 22-FEB-2017 18:39, No significant change was found Confirmed by Tnoy Gonzalez MD ([id number]) on 03/02/2017 8:08:39 PM
[2017-03-02] MEDS ORDERED: VANCOMYCIN 1.35 GM in NS 250 ML IV ONE (14:00)
[2017-03-02] MEDS: MAXIPIME 0.5 GM in NS 50 ML IV SCH (14:03)
--- NOTE | 2017-03-02 15:27 | PROGRESS NOTE ---
DATE: 03/02/2017 SUBJECTIVE: Upon entering the room Ms. Sepulveda is in the bed with a non- rebreather in place and is having respiratory distress. Her at bedside. Rapid response was called while we were in the room with the patient. OBJECTIVE: Vital signs: Patient is having O2 saturations in the 80s with a non -rebreather at 100%. Other vital signs show that patient has blood pressure 133/76. She was tachypneic. LABS: White blood cell 11.44, hemoglobin 13.2, hematocrit 41.6, platelets 247, 000, sodium 129, potassium 4.8, chloride 96, CO2 16, BUN 15, creatinine 0.9, glucose 114. PHYSICAL EXAM: Cardiovascular: Regular rate and rhythm. Respiratory: Patient is in distress and tachypneic. Abdomen: Appeared to be soft and nontender. Extremities: Patient has edema x4 extremities. ASSESSMENT AND PLAN: 1. Metastatic recurrent non-small cell lung cancer. We previously discussed with the patient and her family that there are no good treatment options at this time. We have recommended hospice. However, with the patient's current state she may just have to remain the hospital. We did discuss with the family today that the patient may not get well enough to leave the hospital. Patient is now on BiPAP after her rapid response. The prognosis has been discussed with the patient's family. 2. Respiratory distress. Again patient improved while she was put on BiPAP. Recent chest x-ray shows her to have pulmonary edema and/or pneumonia. Continue current management. The patient is now do not resuscitate. 3. Disposition. Again, the patient were to become well enough would still recommend that she go home with hospice. However right now she is under respiratory distress and will need to continue receive management in regards to that. Dictated by RICHARD Redding for Oralia Tsai MD cc: Oralia Tsai MD I have seen and examined the patient and agree with the above A/P. Oralia TOMPKINS
[2017-03-02] MEDS: DESYREL PO SCH (22:26)
[2017-03-03] MEDS: MAXIPIME 0.5 GM in NS 50 ML IV SCH ×2 (00:22→12:47)
[2017-03-03] MEDS: MORPHINE IV PRN ×3 (01:49→15:08)
[2017-03-03] MEDS: MUCINEX PO SCH ×2 (03:32→14:34)
[2017-03-03 05:04] LABS: MANUAL DIFF NEEDED? NO
[2017-03-03 05:05] LABS: ALLEN TEST YES; BE -1.2 mmoll (-3.0-3.0); BLOOD TYPE ARTERIAL; DRAW SITE R RADIAL; METHB 0.5 % (0.0-1.5); O2(CT) 17.1 mL/dL (15.0-23.0); PCO2(98.6) 34 mmHg (35-45); PO2(98.6) 77 mmHg (60-100); SAMPLE BLOOD; SAO2 96.6 % (95.0-100.0); THB 12.8 g/dL (11.5-17.4); pH(98.6) 7.43 (7.35-7.45)
[2017-03-03 05:05] LABS: BASO% 0.2 % (0.0-0.8); EOS# 0.07 X1000 (0.0-0.7); EOS% 0.7 % (0.0-10.0); HEMATOCRIT 37.2 % (37.0-47.0); HEMOGLOBIN 11.9 g/dL (12.0-16.0); IMM GRAN# 0.03 X1000 (0.0-0.04); IMM GRAN% 0.3 % (0.0-0.5); LYMPH# 1.01 X1000 (1.2-3.4); LYMPH% 10.5 % (20.5-51.1); MCH 28.7 PG (27-31); MCV 89.6 FL (81-99); MONO# 0.69 X1000 (0.11-0.59); MONO% 7.2 % (1.7-9.3); MPV 10.5 FL (7.4-10.4); NEUT% 81.1 % (42.2-75.2); PLT 246 X1000 (130-400); RBC 4.15 XMIL (4.2-5.4)
[2017-03-03 05:06] LABS: MODALITY NRB
[2017-03-03 05:26] LABS: AGAP 17; ALBUMIN 2.7 g/dL (3.5-5.0); ALKALINE PHOSPHATASE 139 U/L (32-104); BUN 19 mg/dL (8-22); CALCIUM 9.3 mg/dL (8.8-10.2); CHLORIDE 99 mmol/L (98-107); COSMO 274; GOT 18 U/L (10-30); GPT 11 U/L (10-36); POTASSIUM 4.5 mmol/L (3.5-5.1); SODIUM 136 mmol/L (136-145); TCO2 20 mmol/L (25-35); TOTAL BILIRUBIN 1.16 mg/dL (0.20-1.00); TOTAL PROTEIN 6.6 g/dL (6.3-8.3)
[2017-03-03] MEDS: SYNTHROID PO SCH (06:15)
--- NOTE | 2017-03-03 07:41 | Diag Imaging Result Doc PS360 ---
EXAM: CHEST-PORTABLE HISTORY: dyspnea TECHNIQUE: AP portable at 0500 COMMENT: The heart size is enlarged. There is retrocardiac opacity in the left lower lobe consistent with atelectasis or pneumonia. There is patchy alveolar opacity in the right lung including a relatively dense opacity laterally in the right base. This was also present at the time the previous examination of 03/02/2017. IMPRESSION: Cardiomegaly. Right upper lower and middle lobe pneumonia, left lower lobe atelectasis versus pneumonia. Electronically signed by Wai Khan 03/03/2017 7:38 AM
[2017-03-03] MEDS: PRILOSEC PO SCH (08:28)
[2017-03-03] MEDS: NEURONTIN PO SCH ×3 (08:28→21:06)
[2017-03-03] MEDS: TESSALON PO SCH ×3 (08:28→21:06)
[2017-03-03] MEDS: PATIENT'S OWN MED PO SCH (08:28)
[2017-03-03] MEDS: ATIVAN PO PRN (08:28)
[2017-03-03] MEDS: KLONOPIN PO SCH (09:11)
[2017-03-03] MEDS: LASIX IV SCH (10:03)
[2017-03-03] MEDS ORDERED: DIFLUCAN 200 MG/NS 200 MG/100 ML IVPB IV ONE (13:16)
--- NOTE | 2017-03-03 16:20 | PROGRESS NOTE ---
DATE: 03/03/2017 SUBJECTIVE: Today Ms. Sepulveda refers to be doing relatively fine. She refers to be having less shortness of breath. She did have another episode of anxiety and panic attacks. PHYSICAL EXAMINATION: Vital Signs: Blood pressure is 121/68, pulse of 70, respirations 18, temperature 97.9 degrees. The patient is saturating 93% on 100% oxygen mask and a nonrebreather. General: Ms. Sepulveda is a 76-year-old, female. She is in bed, in mild respiratory distress. HEENT: Mucosa is pink and moist. Anicteric. Acyanotic. Neck: Supple. There is JVD. Chest: Air entry is bilaterally reduced. There is diffuse posterior bilateral crepitations. Cardiovascular: Regular rate and rhythm. No murmurs, no rubs, no gallops. Abdomen: Soft, nontender. There is no hepatosplenomegaly. Extremities: No pedal edema. Central Nervous System: The patient is awake, more conversational, but speaks in words to short sentences because of shortness of breath. LABORATORY DATA: WBC is down to 9.65, hemoglobin is 11.9, platelet count 246, 000. Chemistry is reviewed. Her proBNP is 31,000. DIAGNOSTIC STUDIES: A chest x-ray done this morning shows cardiomegaly, right upper lobe and middle lobe pneumonia, left lower lobe atelectasis versus pneumonia. ASSESSMENT AND PLAN: 1. Acute hypoxemic respiratory failure. The patient was initially treated for about 7 days of antibiotics and was ready to go to rehabilitation; however, yesterday she started having more shortness of breath with desaturation, and a rapid response was called because of acute onset of shortness of breath. An x-ray this morning shows multifocal pneumonia. Antibiotics have been changed. We will plan to do a CT scan of the lungs to get a better view of the lung parenchyma. 2. Acute kidney injury on presentation due to dehydration, resolved. 3. Right-sided postobstructive pneumonia. The patient had 7 days of antibiotics. However, as I said, a new x-ray this morning seems to show multifocal pneumonia. The patient has been started on vancomycin and cefepime, and today is day 1 on those antibiotics. 4. Hematuria after right ureter stent exchange. This is resolved. Eliquis has been discontinued. 5. The patient with a history of congestive heart failure with biventricular enlargement, ejection fraction of 40% to 45% on an echocardiogram done in October 2016. The patient's proBNP is extremely high, the highest it has been all times, so I think she probably has acute on chronic systolic heart failure. We are also going to continue the Lasix, and start the patient on her beta- yamileth and restart her on her lisinopril since her renal function has normalized. SUMMARY: In general, I think Ms. Sepulveda continues to be extremely sick. She has end-stage adenocarcinoma of the lung. Hematology/Oncology has discussed hospice with her and the family. I have also discussed hospice with her and with the family, but at this point they do not want to go with hospice. Ms. Sepulveda was relatively stable for discharge yesterday, and I was told this morning that she has a bed at [facility] in [place]; however, yesterday she had a rapid response called because of acute onset of shortness of breath. Her troponins 3 times have been negative. However, her proBNP is extremely high. A chest x-ray has shown multifocal pneumonia. So, we will continue treating the patient with IV antibiotics. We will continue with the diuretic therapy. We will restart her on her cardiac medications. Hopefully discharge Ms. Sepulveda in about 1 day or 2 once her respiratory status improves. cc: MD LEDA Suggs
[2017-03-03] MEDS: PRINIVIL PO SCH (16:45)
[2017-03-03] MEDS: TOPROL XL PO SCH (16:46)
[2017-03-03] MEDS: DESYREL PO SCH (21:06)
[2017-03-04] MEDS: MAXIPIME 0.5 GM in NS 50 ML IV SCH ×3 (00:51→23:35)
[2017-03-04] MEDS: VANCOMYCIN 1.2 GM in NS 250 ML IV SCH (00:59)
[2017-03-04] MEDS: CALMOSEPTINE OINTMENT TOP PRN (03:12)
[2017-03-04] MEDS: MUCINEX PO SCH ×2 (03:12→15:08)
[2017-03-04] MEDS: SYNTHROID PO SCH (06:32)
[2017-03-04 07:03] LABS: BASO% 0.2 % (0.0-0.8); EOS# 0.08 X1000 (0.0-0.7); EOS% 0.7 % (0.0-10.0); HEMATOCRIT 35.7 % (37.0-47.0); HEMOGLOBIN 11.5 g/dL (12.0-16.0); IMM GRAN# 0.04 X1000 (0.0-0.04); IMM GRAN% 0.4 % (0.0-0.5); LYMPH# 1.06 X1000 (1.2-3.4); LYMPH% 9.4 % (20.5-51.1); MANUAL DIFF NEEDED? YES; MCHC 32.2 g/dL (33-37); MCV 90.2 FL (81-99); MONO# 0.76 X1000 (0.11-0.59); MONO% 6.8 % (1.7-9.3); MPV 10.5 FL (7.4-10.4); NEUT% 82.5 % (42.2-75.2); PLT 265 X1000 (130-400); RBC 3.96 XMIL (4.2-5.4)
[2017-03-04 07:09] LABS: ALBUMIN 2.8 g/dL (3.5-5.0); ALKALINE PHOSPHATASE 136 U/L (32-104); BUN 22 mg/dL (8-22); CALCIUM 8.4 mg/dL (8.8-10.2); GOT 20 U/L (10-30); GPT 15 U/L (10-36); TCO2 24 mmol/L (25-35); TOTAL BILIRUBIN 0.81 mg/dL (0.20-1.00); TOTAL PROTEIN 6.3 g/dL (6.3-8.3)
[2017-03-04 07:20] LABS: CHLORIDE 101 mmol/L (98-107); POTASSIUM 3.9 mmol/L (3.5-5.1); SODIUM 139 mmol/L (136-145)
[2017-03-04 07:55] LABS: EOS 2 % (1-10); HYPOCHROM 1+; LYMPHS 8 % (21-51); MONO 8 % (1-9)
[2017-03-04 08:28] LABS: AGAP 14; COSMO 282
[2017-03-04] MEDS: TOPROL XL PO SCH (09:09)
[2017-03-04] MEDS: LASIX IV SCH (09:09)
[2017-03-04] MEDS: NEURONTIN PO SCH ×3 (09:09→23:12)
[2017-03-04] MEDS: ATIVAN PO PRN ×2 (09:09→23:11)
[2017-03-04] MEDS: PATIENT'S OWN MED PO SCH (09:09)
[2017-03-04] MEDS: KLONOPIN PO SCH (09:09)
[2017-03-04] MEDS: PRINIVIL PO SCH (09:09)
[2017-03-04] MEDS: PRILOSEC PO SCH (09:09)
[2017-03-04] MEDS: TESSALON PO SCH ×3 (09:09→23:12)
[2017-03-04] MEDS: MORPHINE IV PRN ×2 (09:23→15:34)
--- NOTE | 2017-03-04 10:46 | Diag Imaging Result Doc PS360 ---
EXAM: CT THORAX W/CONTRAST INDICATION: pneumonia/ lung mass TECHNIQUE: Dose reduction protocol was used. COMPARISON: 02/25/2017 FINDINGS: Likely previous study, there is a masslike lesion involving the right lower lobe that extends to the right hilum. This appears to be causing postobstructive pneumonia at the right lung base as well as atelectasis. It is difficult to distinguish the mass from the infection, however. There are only small pleural effusions bilaterally. There is atelectasis at the left lung base that is milder. Superimposed infection here also cannot be excluded. The left lung base appears to be stable as well. There is significant worsening of airspace consolidation in the right upper lobe and superior aspect of the right lower lobe. There is stable marked cardiomegaly. IMPRESSION: 1.Stable masslike lesion in the right lower lobe extending to the hilum with associated postobstructive pneumonia and atelectasis at the right lung base. Please see above discussion. 2.Atelectasis and likely superimposed pneumonia at the left lung base as well, stable. 3.Worsening airspace consolidations in the right upper lobe and superior aspect of the right lower lobe. Electronically signed by Nikita Ellison 03/04/2017 10:43 AM
[2017-03-04] MEDS: MYCOSTATIN CREAM TOP SCH ×2 (12:11→23:26)
--- NOTE | 2017-03-04 14:07 | PROGRESS NOTE ---
DATE: 03/03/207 SUBJECTIVE: Ms. Sepulveda is resting comfortably in bed with a BiPAP in place. She has 3 family members at bedside. She appears to be in no acute distress. OBJECTIVE: Vital signs: Temperature 97.6 degrees, heart rate 61, respirations 19, blood pressure 114/72, O2 saturation 94% on BiPAP. LABORATORY: White blood cells 9.65, hemoglobin 11.9, hematocrit 37.2, platelet count 246,000. Sodium 136, potassium 4.5, chloride 99, CO2 of 20, BUN 19, creatinine 0.9, glucose 90. ProBNP 31,133. PHYSICAL EXAMINATION: Cardiovascular: S1, S2 heard. Respiratory: Coarse breath sounds bilaterally, with some wheezing and occasional rhonchi. Abdomen: Soft, nontender and nondistended, with positive bowel sounds. Extremities: The patient has no bilateral lower extremity edema. Bilateral upper extremities with 2+ edema noted. ASSESSMENT AND PLAN: 1. Recurrent metastatic [id number] lung cancer, as well as a history of lymphoma. The patient is not a candidate for any treatment at this time. Hospice has been recommended and discussed with the patient and her family previously. Currently, the patient is not well enough to go home. 2. Respiratory distress. Continue current management. Appears that she has pneumonia and some pulmonary edema. Continue IV antibiotics and p.r.n. Lasix. 3. Yeast infection. The patient has vaginal yeast infection, as well as thrush. We will go ahead and give her dose of Diflucan. 4. Congestive heart failure exacerbation. Continue current management as per primary team. Dictated by RICHARD Redding for Oralia Tsai MD cc: Oralia Tsai MD I have seen and examined the patient and agree with the above A/P. Oralia TOMPKINS
--- NOTE | 2017-03-04 14:49 | PROGRESS NOTE ---
DATE: 03/04/2017 SUBJECTIVE: Today, Ms. Sepulveda refers to be doing a little better. She was sitting up, propped up in bed, on non-rebreather oxygenation. OBJECTIVE: Vital signs: Blood pressure is 113/59, pulse of 60, respiration is 18, temperature is 97.7. General: Ms. Sepulveda is a 76-year-old, female. She was sitting up in bed, propped up. She was in mild respiratory distress. HEENT: Mucosa is pink and moist. Anicteric. Acyanotic. Patient was on a non-rebreather mask. Neck: Supple. There is still JVD. Chest: Air entry is bilaterally reduced. There are diffuse bilateral posterior crepitations. Cardiovascular: Regular rate and rhythm. There are no murmurs, no rubs, no gallops. Abdomen: Soft, distended. No hepatosplenomegaly. Extremities: No pedal edema. 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 She is more conversational today. LABORATORY DATA: WBC is 12.27, hemoglobin is 11.5, platelet count of 265. Chemistry is reviewed. Completely normal. ProB is up to 31,257. CT scan of the chest shows stable mass-like lesion in the right lower lobe extending to the hilum with associated postobstructive pneumonia and atelectasis at the right lung. There is also atelectasis and likely superimposed pneumonia at the left lung base. There is worsening air-space consolidations in the right upper lobe and superior aspect of the right lower lobe. ASSESSMENT: 1. Acute hypoxemic respiratory failure. Patient is currently on a non- rebreather. Oxygenation seems to be improving. 2. Multifocal pneumonia. A CT scan of this morning actually shows slight worsening. Patient is currently on cefepime and vancomycin. 3. Right lower lobe adenocarcinoma of the lung with postobstructive pneumonia. 4. Acute on chronic congestive heart failure with biventricular enlargement. Ejection fraction 40-45%. We will continue with diuretic therapy. 5. Hematuria after a right ureteral stent exchange. Eliquis has been withheld. Patient's hematuria is resolved. The stent was replaced by Dr. Barahona on 02/26/2017. 6. Dehydration and hyponatremia on presentation resolved. PLAN: So, in general, I think Ms. Sepulveda is relatively stable. She initially got admitted on 02/22/2017 because of generalized weakness. Was found to be severely dehydrated and also pneumonia. Patient was fluid resuscitated. Pneumonia was treated and she improved. However, about 3 days ago a rapid response was called on her because of acute worsening shortness of breath which we thought is due to fluid in the lungs, as well as possible superimposed pneumonia. At that point, patient was only p.o. antibiotics. When the event happened, she had been started on cefepime and vancomycin and today is day 2 on these 2 antibiotics and we plan to treat it for a total of 10 days IV antibiotics. Patient, I understand has a bed at [facility] for rehab. Now, she is currently on a non-rebreather. Hopefully, by tomorrow, she is saturating fine on just face mask or nasal cannula, so we can transport her safely in ambulance. cc: Adrien Castillo MD MTDD
--- NOTE | 2017-03-04 17:48 | PROGRESS NOTE ---
DATE: 03/04/2017 SUBJECTIVE: Ms. Sepulveda is lying in the hospital bed. She appears to be in no acute distress. She has family at bedside. OBJECTIVE: Temperature 97.7 degrees, heart rate 60, respirations 113/59, O2 saturation 99% on non- rebreather at 15%. LABS: White blood cells 11.23, hemoglobin 11.5, hematocrit 35.7, platelet count 265,000. Sodium 139, potassium 3.9, chloride 101, CO2 24, BUN 22, creatinine 0.8, glucose 117. PHYSICAL EXAM: CV: S1, S2 heard. Respiratory: Patient continues to have wheezing and occasional rhonchi bilaterally. Abdomen: Soft, nontender, nondistended with positive bowel sounds. Extremities: Patient has trace to no lower extremity edema. Bilateral upper extremities continue to have edema noted. DIAGNOSTIC DATA: CT of chest done 03/04/2017 shows stable masslike lesion in the right lower lobe extending to the hilum with associated postobstructive pneumonia and atelectasis in the right lung base. Atelectasis and likely superimposed pneumonia at the left lung base as well. Worsening airspace consolidation in the right upper lobe and the superior aspect of the right lower lobe. ASSESSMENT AND PLAN: 1. Recurrent/metastatic non-small cell lung cancer. Patient is not a candidate for treatment. 2. History of lymphoma. No evidence of recurrence at this time. 3. Pneumonia. Patient will need to continue with her current antibiotic therapy. 4. Congestive heart failure. Patient will also need to continue with her current management including daily Lasix. 5. Vaginal yeast. Patient is status post 1 dose of Diflucan. Continue to monitor. Nystatin cream has also been provided. 6. Acute respiratory failure. Patient will continue on a non-rebreather. 7. Disposition. It appears that patient is planning to go to [facility] for rehab. We have previously discussed hospice with the patient and the family. They have opted for rehab. We will make sure to continue to follow along with the patient once she is discharged from the hospital. Dictated by RICHARD Redding for Oralia Tsai MD cc: Oralia Tsai MD I have seen and examined the patient and agree with the above A/P. Oralia Tsai MD [facility]
[2017-03-04] MEDS: DESYREL PO SCH (23:12)
[2017-03-04] MEDS ORDERED: PYRIDIUM PO PRN (23:31)
[2017-03-05] MEDS: MORPHINE IV PRN (02:18)
[2017-03-05] MEDS: MUCINEX PO SCH ×2 (02:22→18:30)
[2017-03-05 04:00] LABS: BLOOD TYPE ARTERIAL; SAMPLE BLOOD; pH(98.6) 7.43 (7.35-7.45)
[2017-03-05 04:01] LABS: BE 1.5 mmoll (-3.0-3.0); METHB 0.7 % (0.0-1.5); O2(CT) 15.1 mL/dL (15.0-23.0); PCO2(98.6) 39 mmHg (35-45); PO2(98.6) 69 mmHg (60-100); THB 11.4 g/dL (11.5-17.4)
[2017-03-05 04:02] LABS: ALLEN TEST YES; DRAW SITE R RADIAL; MODALITY PRB
[2017-03-05] MEDS: TESSALON PO SCH ×3 (06:51→21:58)
[2017-03-05] MEDS: SYNTHROID PO SCH (06:51)
[2017-03-05 07:00] LABS: MANUAL DIFF NEEDED? NO
[2017-03-05 07:09] LABS: BASO% 0.2 % (0.0-0.8); EOS# 0.09 X1000 (0.0-0.7); EOS% 0.9 % (0.0-10.0); HEMATOCRIT 35.7 % (37.0-47.0); HEMOGLOBIN 11.4 g/dL (12.0-16.0); IMM GRAN# 0.03 X1000 (0.0-0.04); IMM GRAN% 0.3 % (0.0-0.5); LYMPH# 1.13 X1000 (1.2-3.4); LYMPH% 11.4 % (20.5-51.1); MCH 28.9 PG (27-31); MCHC 31.9 g/dL (33-37); MCV 90.4 FL (81-99); MONO# 0.69 X1000 (0.11-0.59); MPV 10.5 FL (7.4-10.4); NEUT% 80.2 % (42.2-75.2); PLT 243 X1000 (130-400); RBC 3.95 XMIL (4.2-5.4)
[2017-03-05 07:31] LABS: AGAP 12; ALBUMIN 2.9 g/dL (3.5-5.0); BUN 20 mg/dL (8-22); CALCIUM 9.2 mg/dL (8.8-10.2); CHLORIDE 101 mmol/L (98-107); COSMO 280; MAGNESIUM 1.2 mg/dL (1.5-2.7); POTASSIUM 3.8 mmol/L (3.5-5.1); SODIUM 139 mmol/L (136-145); TCO2 26 mmol/L (25-35)
--- NOTE | 2017-03-05 07:39 | Diag Imaging Result Doc PS360 ---
CHEST-PORTABLE - 03/05/2017 INDICATION: dyspnea TECHNIQUE: COMPARISON: 03/03/2017 FINDINGS: Stable chest port and pacemaker. Stable cardiomegaly and pulmonary vascular congestion. Lung volumes are lower. There is increasing opacification at the right hilum and lung base, along with ill-defined infiltrate throughout the right lung. Stable consolidation at the left lung base as well. IMPRESSION: Worsening from prior. Electronically signed by Haja Sheppard 03/05/2017 7:37 AM
[2017-03-05] MEDS: ATIVAN PO PRN ×2 (09:30→21:57)
[2017-03-05] MEDS: NEURONTIN PO SCH ×4 (09:32→21:57)
[2017-03-05] MEDS: KLONOPIN PO SCH (09:35)
[2017-03-05] MEDS: PRILOSEC PO SCH (09:53)
[2017-03-05] MEDS: PATIENT'S OWN MED PO SCH (09:54)
[2017-03-05] MEDS: LASIX IV SCH (09:55)
[2017-03-05] MEDS: MYCOSTATIN CREAM TOP SCH ×2 (09:56→22:01)
[2017-03-05] MEDS ORDERED: MAGNESIUM SULFATE 2 GM/S.W.I. 2 GM/50 ML IVPB IV ONE (09:56)
[2017-03-05] MEDS: PRINIVIL PO SCH (11:32)
[2017-03-05] MEDS: TOPROL XL PO SCH (11:34)
[2017-03-05] MEDS: POTASSIUM PHOSPHATE 40 MEQ in NS 250 ML IV ONE ×2 (11:40→12:00)
[2017-03-05] MEDS: MAXIPIME 0.5 GM in NS 50 ML IV SCH (14:09)
[2017-03-05] MEDS ORDERED: DULCOLAX PR ONE (15:26)
--- NOTE | 2017-03-05 15:48 | CONSULTATION ---
DATE OF CONSULTATION: 03/05/2017 REFERRING PHYSICIAN: Dr. Castillo. CHIEF COMPLAINT: Evaluation for respiratory distress and failure. HISTORY OF PRESENTING ILLNESS: This is a 76-year-old female with past medical history of metastatic recurrent lung cancer who is now a DNR on comfort care being planned. He was here in the hospital since the , and worsening and respiratory effort and distress secondary to pneumonia post obstructive and congestive heart failure. Eventually now she is DNR 1, being transferred to [facility] on BiPAP at bedtime and p.r.n., and according to Oncology notes comfort care is being planned. PAST MEDICAL HISTORY: Includes cardiomyopathy, Adriamycin-induced B-cell lymphoma, adenocarcinoma of the lung metastatic, DVT, hyperlipidemia, gout, GERD, ventricular tachycardia with ICD placement, hypothyroidism. PAST SURGICAL HISTORY: Ureteral stent placement, forehead left radical lymph node dissection, back surgery, sinus surgery, right Port-A-Cath placement, AICD placement, and lobectomy of left lung. FAMILY HISTORY: COPD, renal cell carcinoma, heart disease. SOCIAL HISTORY: , living with . He was at the bedside during evaluation. ALLERGIES: Possible to Augmentin side effects and codeine. REVIEW OF SYSTEMS: As detailed in history of presenting illness, otherwise noncontributory. MEDICATIONS: Home medications and medications in the hospital were reviewed and they include the following: Tylenol, MagneBind, cefepime, Klonopin, Lasix, Neurontin, Mucinex, [place], Synthroid, Prinivil, Ativan, Toprol-XL, vancomycin, Phenergan, Ultram, Desyrel. PHYSICAL EXAM: General: She is in bed on 100% non-rebreather. is at the bedside. She is sleepy for the minute. BiPAP machine also is at the bedside. Vital Signs: Noted. Head and Neck: Examined. Trachea midline. Chest exam: Few crackles at the bases. Cardiac exam: S1, S2. Abdomen: Nontender. Extremities: There is +1 pedal edema. Neurological exam: Lethargic. LABS AND INVESTIGATIONS: Chest CT scan reviewed showed pneumonia and lung tumor. CBC, CMP, ABG reviewed with pH 7.43, pCO2 39, PO2 69. ASSESSMENT AND PLAN: A 76-year-old female with past medical history as above with metastatic lung cancer. Now has congestive heart failure and post obstructive pneumonia respiratory failure. She is DNR 1. Comfort care measures being planned. Agree with diuresis, antibiotics, and BiPAP. Case discussed with . Patient being transferred to [facility]. cc: Stephany Robles MD
[2017-03-05] MEDS: VANCOMYCIN 1.2 GM in NS 250 ML IV SCH (16:12)
[2017-03-05 16:47] LABS: ALLEN TEST YES; BE 3.5 mmoll (-3.0-3.0); BLOOD TYPE ARTERIAL; DRAW SITE R RADIAL; METHB 1.2 % (0.0-1.5); O2(CT) 15.9 mL/dL (15.0-23.0); PCO2(98.6) 40 mmHg (35-45); PO2(98.6) 80 mmHg (60-100); SAMPLE BLOOD; SAO2 97.4 % (95.0-100.0); THB 11.9 g/dL (11.5-17.4); pH(98.6) 7.45 (7.35-7.45)
[2017-03-05 16:48] LABS: MODALITY PRB
[2017-03-05] MEDS: FLAGYL 500 MG/NS 500 MG/100 ML IVPB IV SCH (18:28)
[2017-03-05] MEDS: DESYREL PO SCH (21:58)
[2017-03-05] MEDS: DULCOLAX PR SCH (22:01)
[2017-03-06] MEDS: MAXIPIME 0.5 GM in NS 50 ML IV SCH ×2 (02:41→15:44)
[2017-03-06] MEDS: FLAGYL 500 MG/NS 500 MG/100 ML IVPB IV SCH ×4 (02:41→20:58)
[2017-03-06 05:52] LABS: AGAP 14; ALBUMIN 2.7 g/dL (3.5-5.0); ALKALINE PHOSPHATASE 162 U/L (32-104); BUN 20 mg/dL (8-22); CALCIUM 8.6 mg/dL (8.8-10.2); CHLORIDE 104 mmol/L (98-107); COSMO 289; GOT 15 U/L (10-30); GPT 13 U/L (10-36); POTASSIUM 3.6 mmol/L (3.5-5.1); SODIUM 144 mmol/L (136-145); TCO2 26 mmol/L (25-35); TOTAL BILIRUBIN 0.74 mg/dL (0.20-1.00); TOTAL PROTEIN 6.4 g/dL (6.3-8.3)
[2017-03-06] MEDS: SYNTHROID PO SCH (06:20)
[2017-03-06] MEDS: LASIX IV SCH ×2 (06:20→18:36)
[2017-03-06] MEDS: MUCINEX PO SCH ×3 (06:20→20:56)
--- NOTE | 2017-03-06 07:27 | Diag Imaging Result Doc PS360 ---
EXAM: CHEST-PORTABLE HISTORY: dyspnea TECHNIQUE: Portable AP COMPARISON: 03/05/2017 FINDINGS: There is a left-sided pacemaker and a right subclavian portacatheter. There has been partial clearing of the right lung infiltrates. Small pleural effusions persist as does basilar atelectasis. There may be underlying infiltrates in the lung bases as well. The left apex remains clear. IMPRESSION: Overall interval improvement with partial clearing of the infiltrates in the right lung. Electronically signed by Mike Sanchez 03/06/2017 7:24 AM
[2017-03-06] MEDS: TOPROL XL PO SCH (09:08)
[2017-03-06] MEDS: TESSALON PO SCH ×3 (09:09→20:56)
[2017-03-06] MEDS: NEURONTIN PO SCH ×3 (09:09→20:56)
[2017-03-06] MEDS: DULCOLAX PR SCH ×2 (09:10→20:56)
[2017-03-06] MEDS: PRINIVIL PO SCH (09:10)
[2017-03-06] MEDS: PRILOSEC PO SCH (09:10)
[2017-03-06] MEDS: KLONOPIN PO SCH (09:10)
[2017-03-06] MEDS: MYCOSTATIN CREAM TOP SCH ×2 (09:12→20:56)
[2017-03-06] MEDS: PATIENT'S OWN MED PO SCH (09:19)
--- NOTE | 2017-03-06 14:47 | PROGRESS NOTE ---
DATE: 03/06/2017 SUBJECTIVE: Ms. Sepulveda is lying in the hospital bed. She will open eyes to command. She does have a nonrebreather present. Most of the interview is conducted with the patient's sister, and other family member that is in the room. OBJECTIVE: Vital Signs: Temperature 98.9 degrees, heart rate 59, respirations 18, blood pressure 117/73, O2 saturation 95% on nonrebreather 80%. LABS: Sodium 144, potassium 3.6, chloride 104, CO2 26, BUN 20, creatinine 0.8 and glucose is 95. ProBNP is 16,036. PHYSICAL EXAMINATION: CV: The patient has pacemaker in place. Regular. Respiratory: Patient has some scattered wheezing noted. Abdomen: Soft, nontender, nondistended with positive bowel sounds. Extremities: Patient has upper extremity edema that is improving. Bilateral lower extremities without any significant edema. ASSESSMENT AND PLAN: 1. Metastatic/recurrent non-small cell lung cancer. Also history of lymphoma. Hospice has been recommended. The patient has been intolerant to several different lines of therapy previously. No evidence of lymphoma at this time. The patient will remain in the hospital. There is discussion of trying to transfer her to rehab per the patient and family's wishes. 2. Pneumonia. Continue IV antibiotics. 3. Congestive heart failure exacerbation. Patient is now receiving Lasix twice a day. ProBNP is improving and also appears that her fluid retention is improving. Continue current management. 4. History of lymphoma. No evidence of recurrence at this time. 5. Acute respiratory failure. Seems to be relatively stable. We are going to sign off for the weekend. We will follow peripherally and will be available as needed. Will resume regular followup on 03/09/2017. Dictated by RICHARD Redding for Oralia Tsai MD cc: Oralia Tsai MD I have seen and examined the patient and agree with the above A/P. Oralia BENITESD
--- NOTE | 2017-03-06 16:36 | PROGRESS NOTE ---
DATE: 03/06/2017 SUBJECTIVE: The patient has no focal complaints. OBJECTIVE: Vital Signs: Blood pressure is 110/84, heart rate is 60, respiratory rate 18, temperature 98 degrees, 92% on non-rebreather. Cardiovascular: Regular rate and rhythm. Pulmonary: Bilateral breath sounds. Clear to auscultation. Diminished at the bases. GI: Soft, nontender, nondistended. Bowel sounds are positive. LABORATORY DATA: I do not have any white count today; her white count actually was not too bad yesterday; it has not really been an issue. Her blood gas actually does not look too bad. Her basic does not look too bad. BNP is actually better from 31,000 and is down to 16,000. PROBLEM LIST: 1. Acute respiratory failure likely multifactorial; by that I mean pneumonia, metastatic lung cancer and volume overload. Clinically, she seems a little bit better as far as her x-ray that looks improved, but her oxygen requirement has not improved and her mentation has not improved. I still think her prognosis is overall abysmal. A little unclear what the family's expectations are. To some degree I think they feel like they understand she has terminal disease, but they are very hopeful that she will turn around. At least some of the family is a mixed dynamic about how she is going to improve. So, we will continue supportive measures. She is on oxygen, BiPAP. She is a do not resuscitate. We will continue diuresis, broad spectrum antibiotics and follow. 2. Metastatic cancer. We are aware. Poor prognosis. She is not really amenable to any further treatment. 3. Congestive heart failure exacerbation. We will continue diuresis. Brain natriuretic peptide is improved. We will continue to follow. 4. Metabolic encephalopathy. Overall, she does not seem to be improving much from that standpoint, but she has a lot of things going on that may be contributing. DISPOSITION: At best, will plan to stabilize and then get to a swing bed. Alternatively, you know, she would be appropriate, especially if she does not improve or she deteriorates, for consideration for inpatient hospice. cc: Thomas Palmer MD
[2017-03-06 20:08] LABS: URINE MICRO REVIEW NEEDED? NO; URINE SOURCE CATH
[2017-03-06 20:20] LABS: BILIRUBIN URINE NEGATIVE (NEGATIVE); BLOOD URINE TRACE (NEGATIVE); COLOR YELLOW; GLUCOSE URINE NEGATIVE (NEGATIVE); LEUKOCYTES URINE SMALL (NEGATIVE); NITRITE URINE NEGATIVE (NEGATIVE); PROTEIN URINE NEGATIVE (NEGATIVE); SP GRAVITY URINE 1.004; TURBIDITY URINE CLEAR (CLEAR); UROBILINOGEN URINE NORMAL (NORMAL)
[2017-03-06 20:24] LABS: UR EPITHELIAL CELLS <10 /HPF (<10); URINE BACTERIA NEGATIVE /HPF; URINE CULTURE NEEDED? YES; URINE WBC <10 /HPF (<10)
[2017-03-06] MEDS: DESYREL PO SCH (20:56)
[2017-03-06] MEDS: CALMOSEPTINE OINTMENT TOP PRN (20:57)
[2017-03-06] MEDS: ATIVAN PO PRN (22:57)
[2017-03-07] MEDS: MAXIPIME 0.5 GM in NS 50 ML IV SCH ×3 (01:41→16:32)
[2017-03-07] MEDS: FLAGYL 500 MG/NS 500 MG/100 ML IVPB IV SCH ×4 (01:41→20:36)
[2017-03-07] MEDS: VANCOMYCIN 1,200 MG in NS 250 ML IV SCH (03:22)
[2017-03-07 05:37] LABS: HEMATOCRIT 32.2 % (37.0-47.0); HEMOGLOBIN 10.1 g/dL (12.0-16.0); MCH 29.5 PG (27-31); MCHC 31.4 g/dL (33-37); MCV 94.2 FL (81-99); MPV 10.5 FL (7.4-10.4); RBC 3.42 XMIL (4.2-5.4)
[2017-03-07] MEDS: LASIX IV SCH ×2 (06:02→17:31)
[2017-03-07] MEDS: SYNTHROID PO SCH ×2 (06:03→06:13)
[2017-03-07 06:27] LABS: AGAP 9; BUN 16 mg/dL (8-22); CALCIUM 8.2 mg/dL (8.8-10.2); CHLORIDE 103 mmol/L (98-107); COSMO 283; SODIUM 142 mmol/L (136-145); TCO2 30 mmol/L (25-35)
--- NOTE | 2017-03-07 07:29 | Diag Imaging Result Doc PS360 ---
EXAM: CHEST-PORTABLE HISTORY: dyspnea TECHNIQUE: Erect AP portable at 0600 COMMENT: There is right pleural effusion. There may also be fluid on the left. There is alveolar opacity in the right lower lobe. The heart size is enlarged. There is atelectasis or pneumonia in the left lower lobe. Compared to the previous study of 03/06/2017, there may be slight improvement with regard to the right upper lobe. IMPRESSION: Cardiomegaly. Atelectasis versus pneumonia in both lower lobes. Interstitial pulmonary edema and pleural effusions bilaterally. Electronically signed by Wai Khan 03/07/2017 7:27 AM
[2017-03-07] MEDS: DULCOLAX PR SCH (09:09)
[2017-03-07] MEDS: PRINIVIL PO SCH (09:15)
[2017-03-07] MEDS: MUCINEX PO SCH ×2 (09:15→20:36)
[2017-03-07] MEDS: NEURONTIN PO SCH ×3 (09:15→20:37)
[2017-03-07] MEDS: PRILOSEC PO SCH (09:15)
[2017-03-07] MEDS: TOPROL XL PO SCH (09:15)
[2017-03-07] MEDS: KLONOPIN PO SCH (09:15)
[2017-03-07] MEDS: TESSALON PO SCH ×3 (09:15→20:36)
[2017-03-07] MEDS: PATIENT'S OWN MED PO SCH (09:17)
[2017-03-07] MEDS: MYCOSTATIN CREAM TOP SCH ×2 (09:18→20:38)
[2017-03-07] MEDS: ATIVAN PO PRN (10:31)
[2017-03-07] MEDS ORDERED: KLOR-CON PO ONE (11:15)
[2017-03-07] MEDS: POTASSIUM CHLORIDE 20 MEQ/SWI 20 MEQ/100 ML IVPB IV SCH ×2 (12:04→14:32)
[2017-03-07] MEDS: MORPHINE IV PRN (12:06)
--- NOTE | 2017-03-07 15:23 | PROGRESS NOTE ---
DATE: 03/07/2017 SUBJECTIVE: Clinically she appears to be doing stable or at least improved significantly. She is awake sitting up in bed. She is eating. They have got her down to a 60% face mask I believe. OBJECTIVE: Vital signs: Blood pressure 125/81, heart rate 61, respiratory rate 20, temperature 97.7 degrees. Again she is 88-90% on 60%. Cardiovascular: Regular rate and rhythm. Pulmonary: Bilateral breath sounds. Diminished at bases. GI: Soft, nontender, nondistended. Bowel sounds are positive. LABORATORY DATA: Potassium 3. Hemoglobin and hematocrit 10 and 30, white count of 9, platelets within normal limits. PROBLEM LIST: 1. Acute respiratory failure secondary pneumonia, metastatic lung cancer and pulmonary edema. She is improved today, still with a hefty oxygen requirement but are working on trying to get that better. Her chest x-ray looks like overall improvement especially in the right upper lobe, right middle lobe. She still has airspace disease and effusion at the right lower lobe. We will continue supportive measures. 2. Metastatic cancer. Overall poor prognosis and not amenable to further treatment. The family does want to pursue medical treatments as described. 3. Congestive heart failure exacerbation. We will continue diuresis and follow. 4. Encephalopathy. She is stabilizing. DISPOSITION: I think we will probably try to get her to the swing bed on Thursday if we can get her oxygen levels down to nasal cannula. She is currently on cefepime which she has been on for 6 days and Flagyl for aspiration coverage for 3 days. cc: Thomas Palmer MD
[2017-03-07] MEDS: MIRALAX PO SCH (18:06)
[2017-03-07] MEDS: LACTULOSE PO SCH (20:36)
[2017-03-07] MEDS: DESYREL PO SCH (20:37)
[2017-03-08] MEDS: FLAGYL 500 MG/NS 500 MG/100 ML IVPB IV SCH ×4 (01:03→20:24)
[2017-03-08] MEDS: MAXIPIME 0.5 GM in NS 50 ML IV SCH ×2 (01:03→15:31)
[2017-03-08] MEDS: VANCOMYCIN 1,200 MG in NS 250 ML IV SCH (02:18)
[2017-03-08 05:46] LABS: HEMATOCRIT 34.9 % (37.0-47.0); MCH 29.4 PG (27-31); MCHC 31.5 g/dL (33-37); MCV 93.3 FL (81-99); MPV 10.5 FL (7.4-10.4); RBC 3.74 XMIL (4.2-5.4)
[2017-03-08 06:06] LABS: POTASSIUM 4.8 mmol/L (3.5-5.1)
[2017-03-08] MEDS: LASIX IV SCH (06:21)
[2017-03-08] MEDS: SYNTHROID PO SCH (06:21)
[2017-03-08] MEDS: LACTULOSE PO SCH ×2 (08:43→20:30)
[2017-03-08] MEDS: MIRALAX PO SCH (08:44)
[2017-03-08] MEDS: NEURONTIN PO SCH ×3 (08:44→20:24)
[2017-03-08] MEDS: MYCOSTATIN CREAM TOP SCH ×2 (08:44→20:30)
[2017-03-08] MEDS: TESSALON PO SCH ×3 (08:44→20:24)
[2017-03-08] MEDS: PRINIVIL PO SCH (08:44)
[2017-03-08] MEDS: TOPROL XL PO SCH (08:44)
[2017-03-08] MEDS: MUCINEX PO SCH ×2 (08:44→20:24)
[2017-03-08] MEDS: PRILOSEC PO SCH (08:44)
[2017-03-08] MEDS: KLONOPIN PO SCH (08:44)
[2017-03-08] MEDS: PATIENT'S OWN MED PO SCH (08:47)
[2017-03-08] MEDS: ATIVAN PO PRN ×2 (15:31→23:52)
--- NOTE | 2017-03-08 15:58 | PROGRESS NOTE ---
DATE: 03/08/2017 SUBJECTIVE: The patient has no complaints. OBJECTIVE: General: She is up and then mentating. Vital signs: Blood pressure 93/57, heart rate 60, respiratory 16, temperature 97.8 degrees. 88% on Ventimask. She is up to 95% on a partial non-rebreather. PROBLEM LIST: 1. Acute respiratory failure. Multifactorial. She is improving, however, off oxygen requirement is not. We will wean O2 as tolerated to keep hers saturations 88-90%. At this point, I do not think she is stable enough to go swing bed on a face mask. So we are kind of stuck. Again, she is a hospice appropriate patient, but I do not think the family and patient are ready for that at this point, despite fairly grim prognosis overall. 2. Metastatic lung cancer, aware. She is not amenable to further treatment. We will continue to follow. 3. Congestive heart failure exacerbation. Stabilized, but she is on diuretics and she is borderline hypotensive. 4. Encephalopathy. That seems to be doing okay. 5. Disposition. We try an open wean her down to nasal cannula and then potentially transfer her to a swing bed. Need to discuss with the family about long-term goals. If she does not improve from this standpoint, I think hospice would be appropriate in this situation. cc: Thomas Palmer MD
[2017-03-08] MEDS: MORPHINE IV PRN (18:51)
[2017-03-08] MEDS: DESYREL PO SCH (20:29)
[2017-03-09] MEDS: MAXIPIME 0.5 GM in NS 50 ML IV SCH ×2 (01:33→14:48)
[2017-03-09] MEDS: FLAGYL 500 MG/NS 500 MG/100 ML IVPB IV SCH ×4 (01:34→21:03)
[2017-03-09] MEDS: DESYREL PO SCH ×2 (02:24→21:04)
[2017-03-09] MEDS: VANCOMYCIN 1 GM/NS 1 GM/250 ML IVPB IV SCH (03:56)
[2017-03-09 05:43] LABS: HEMATOCRIT 34.6 % (37.0-47.0); HEMOGLOBIN 10.8 g/dL (12.0-16.0); MCH 29.6 PG (27-31); MCHC 31.2 g/dL (33-37); MCV 94.8 FL (81-99); MPV 10.5 FL (7.4-10.4); RBC 3.65 XMIL (4.2-5.4)
[2017-03-09] MEDS: SYNTHROID PO SCH (06:04)
[2017-03-09] MEDS: CALMOSEPTINE OINTMENT TOP PRN (06:11)
[2017-03-09 06:12] LABS: CALCIUM 8.4 mg/dL (8.8-10.2); POTASSIUM 4.3 mmol/L (3.5-5.1)
[2017-03-09] MEDS ORDERED: LASIX IV SCH (09:00)
[2017-03-09] MEDS: NEURONTIN PO SCH ×2 (10:05→16:03)
[2017-03-09] MEDS: TOPROL XL PO SCH (10:05)
[2017-03-09] MEDS: PRILOSEC PO SCH (10:05)
[2017-03-09] MEDS: KLONOPIN PO SCH (10:05)
[2017-03-09] MEDS: MUCINEX PO SCH ×2 (10:06→21:07)
[2017-03-09] MEDS: TESSALON PO SCH ×3 (10:06→21:04)
[2017-03-09] MEDS: LASIX PO SCH (10:06)
[2017-03-09] MEDS: MIRALAX PO SCH (10:07)
[2017-03-09] MEDS: MYCOSTATIN CREAM TOP SCH (10:07)
[2017-03-09] MEDS: PATIENT'S OWN MED PO SCH (10:08)
[2017-03-09] MEDS: LACTULOSE PO SCH ×2 (10:08→20:18)
[2017-03-09] MEDS ORDERED: AYR NASAL SPRAY NAS PRN (12:05)
--- NOTE | 2017-03-09 12:28 | Diag Imaging Result Doc PS360 ---
CHEST-PORTABLE - 03/09/2017 INDICATION: dyspnea TECHNIQUE: COMPARISON: 03/07/2017 FINDINGS: Stable pacemaker and severe cardiomegaly. There is grossly stable severe infiltrate throughout the right lung, with focal consolidation at the right base. Stable retrocardiac airspace opacity and/or effusion in the left lower lobe. Lung volumes are moderately low. IMPRESSION: No change from prior. Electronically signed by Haja Sheppard 03/09/2017 12:26 PM
--- NOTE | 2017-03-09 13:16 | PROGRESS NOTE ---
DATE: 03/09/2017 SUBJECTIVE: Patient has no focal complaints. OBJECTIVE: Vital signs: Blood pressure 132/54, heart rate 64, respiratory 22, temperature 98.7 degrees, 94% on a non-rebreather. Cardiovascular: Regular rate and rhythm. Pulmonary: Diffuse rhonchi and wheezing. GI: Soft, nontender, nondistended. Bowel sounds are positive. LABORATORY DATA: White count is 8, hemoglobin and hematocrit 10 and 34, platelets 183,000. Chemistries looked okay. CMP looks okay. PROBLEM LIST: 1. Respiratory failure secondary to pneumonia, pulmonary edema, cancer. She had been improving but now she is back on 100% non-rebreather. I agree. Hematology/oncology has evaluated patient, that she would benefit from hospice therapy at this point. I do not think we are ever going to be affectively able to get her on a low-flow oxygen state. She is already a DNR. It would be remise for us if we made her BiPAP dependent at this point. Family is understanding somewhat. I think the understands. The patient understands. The patient states she wants to go home. The daughter I think is not quite as comprehensive. However, she did acquiesced to hematology/oncology's assessment that hospice would be more appropriate. 2. Metastatic lung cancer. Aware. Poor prognosis. Not amenable to treatment. 3. Congestive heart failure. We will continue on her current medications. 4. Disposition. I think at this point hospice either inpatient or outpatient is an achievable goal. I do not know if we are going to be able to provide the O2 amount that she is requiring right now to sustain her but we will see. cc: Thomas Palmer MD
[2017-03-09] MEDS: ATIVAN PO PRN ×2 (13:47→21:04)
--- NOTE | 2017-03-09 17:02 | PROGRESS NOTE ---
DATE: 03/09/2017 SUBJECTIVE: Ms. Sepulveda is lying in the hospital bed. She is in no acute distress at this time. Family is at bedside. OBJECTIVE: Vital Signs: Temperature 98.6 degrees, heart rate 70, respirations 18, blood pressure 94/61, O2 saturation 92% on nonrebreather at 15%. LABS: White blood cells 8.32, hemoglobin 10.8, hematocrit 34.6, platelets 183, 000, sodium 140, potassium 4.3, chloride 101, CO2 27, BUN 22, creatinine 1.0, glucose 92. PHYSICAL EXAM: CV: Regular rate and rhythm. Respiratory: Patient has scattered wheezing and occasional rhonchi. Abdomen: Soft, nontender, nondistended. Positive bowel sounds. Extremities: Patient has some trace bilateral extremity edema. No lower extremity edema. ASSESSMENT AND PLAN: 1. Metastatic/recurrent non-small cell lung cancer. Again today we discussed hospice. Discussed how it seems like the patient has likely reached max benefit from all current therapy. Discussed the patient's wishes as far as prison goals. The patient reports that she would like to go home. Plan will be for us to transition the patient to hospice care hopefully at home at this time. She is requiring O2 as per above. Will get hospice to evaluate the patient. 2. History of lymphoma. No evidence at this time. 3. Pneumonia with pulmonary edema. The patient has been diuresed significantly. Again, we discussed how her current state is not likely to improve. Hospice as per above. Continue current management. 4. Neuropathic pain. Patient and daughter report that the patient is having increase sensations in her bilateral legs. Will go ahead and try to increase her Neurontin to 800 mg t.i.d. up from 600 mg. 5. Cough. Continue current management. Dictated by RICHARD Redding for Oralia Tsai MD cc: Oralia Tsai MD I have seen and examined the patient , reviewed the chart, and agree with the above note. The assessment and plan reflects my recommendations. Oralia TOMPKINS
[2017-03-10] MEDS: MYCOSTATIN CREAM TOP SCH ×2 (00:34→12:50)
[2017-03-10] MEDS: FLAGYL 500 MG/NS 500 MG/100 ML IVPB IV SCH ×2 (01:45→10:54)
[2017-03-10] MEDS: MAXIPIME 0.5 GM in NS 50 ML IV SCH (01:45)
[2017-03-10] MEDS: ATIVAN PO PRN ×2 (02:58→13:34)
[2017-03-10] MEDS: VANCOMYCIN 1 GM/NS 1 GM/250 ML IVPB IV SCH (03:36)
[2017-03-10] MEDS: TYLENOL PO PRN (03:43)
[2017-03-10 05:42] LABS: HEMATOCRIT 32.8 % (37.0-47.0); HEMOGLOBIN 10.4 g/dL (12.0-16.0); MCH 29.2 PG (27-31); MCHC 31.7 g/dL (33-37); MCV 92.1 FL (81-99); MPV 10.2 FL (7.4-10.4); RBC 3.56 XMIL (4.2-5.4)
[2017-03-10 06:04] LABS: CALCIUM 8.1 mg/dL (8.8-10.2); POTASSIUM 3.9 mmol/L (3.5-5.1)
[2017-03-10] MEDS: PRILOSEC PO SCH (10:54)
[2017-03-10] MEDS: KLONOPIN PO SCH (10:55)
[2017-03-10] MEDS: TESSALON PO SCH (10:55)
[2017-03-10] MEDS: LASIX PO SCH (10:55)
[2017-03-10] MEDS: TOPROL XL PO SCH (10:55)
[2017-03-10] MEDS: NEURONTIN PO SCH ×2 (10:55→13:33)
[2017-03-10] MEDS: SYNTHROID PO SCH (10:56)
[2017-03-10] MEDS: LACTULOSE PO SCH (10:57)
[2017-03-10] MEDS: PATIENT'S OWN MED PO SCH (10:58)
[2017-03-10] MEDS: MIRALAX PO SCH (10:59)
[2017-03-10 12:28] VITALS: BP 104/59
[2017-03-10] MEDS: MUCINEX PO SCH (13:33)
--- NOTE | 2017-03-11 12:04 | DISCHARGE SUMMARY ---
ADMISSION DATE: 02/22/2017 DISCHARGE DATE: 03/10/2017 CONSULTATIONS: 1. Gary Carrera MD - Hematology/Oncology. 2. Aung Barahona MD - Urology. 3. Stephany Robles MD - Pulmonology. PERTINENT PROCEDURES: 1. Chest x-ray showed worsening postobstructive pneumonitis bilaterally, presumably due to the patient's known bronchogenic carcinoma. 2. Chest CT showed increased opacity to the posterior hemothorax compared to 10/2016. This may relate to some combination of tumor, atelectasis, and pleural fluid. Interstitial infiltrate at the right upper lobe. Small nodular opacities in the right middle lobe. Opacity with volume loss at the posterior lung base roughly similar to a previous exam. 3. Cystoscopy, right retrograde pyelogram with right urethral stent exchange, performed by Dr. Aung Barahona. 4. Chest CT on 03/04/2017 shows stable mass-like lesion in the right lower lobe extending to the hilum with associated postobstructive pneumonia and atelectasis to the right lung base. Atelectasis and likely superimposed pneumonia at the left lung base as well. Stable worsening airspace consolidations in the right upper lobe and superior aspect of the right lower lobe. 5. Final chest x-ray on 03/09/2017. Shows stable pacemaker and severe cardiomegaly. There is gross stable severe infiltrate throughout the right lung with focal consolidation at the right base. Stable retrocardiac airspace opacity and/or effusion in the left lower lobe. Lung volumes are moderately low. DISCHARGE DIAGNOSES: 1. Metastatic recurrent non-small cell lung cancer, status post multitude lines of therapy, as well as intolerance to multiple lines of therapy. She is currently off treatment and on palliative care. Evaluated by Dr. Oralia Tsai. She has reached maximum benefit from all current therapy while in the hospital. Discussed goals of care and the patient with transition to hospice with [facility] today. 2. B-cell lymphoma history, no evidence of recurrence. 3. Acute hyponatremia. 4. Severe dehydration, improved. 5. Acute kidney injury, improved. 6. Postobstructive pneumonia. The patient has been on IV vancomycin and cefepime throughout her hospital stay. 7. Congestive heart failure exacerbation. Improved with IV Lasix. 8. Respiratory distress secondary to pneumonia and pulmonary edema and cancer. The patient has been on BiPAP non-rebreather to mask in alternating. She seemed to have minimal improvement. Pulmonology was also brought on board. Pulmonology, along with Hematology and Oncology do not feel that we will effectively be able to get her to a low-flow oxygen state. Dr. Palmer, as well as Hem-Onc had several long discussions with the family about her respiratory status, oxygen needs, and progression of her disease, and again they have chosen to go home with [facility]. 9. Yeast infection, resolved. 10. Constipation, resolved. 11. Hyperkalemia, resolved. 12. Right urethral obstruction, managed with a right urethral stent. Underwent cystoscopy with stent replacement by Dr. Aung Barahona. HOSPITAL COURSE: Ms. Sepulveda is a 76-year-old female, who carries a past history of adenocarcinoma of the lungs, with diffuse B-cell lymphoma, Adriamycin induced cardiomyopathy, deep venous thrombosis, gout, hyperlipidemia, gastroesophageal reflux disease, with a prior history of ventricular tachycardia with ICD placement, as well as hypothyroidism. She is no longer a candidate for chemotherapy intervention. She has had multiple lines of therapy and also not tolerated multiple lines of therapy. On admission, the patient was in a confused and was only oriented to person and place. Disoriented to time and situation. For the past 2-3 days, per the , she had weakness and was prescribed Cymbalta on February 16 and she began having tremors and increased weakness in all of her extremities and stopped taking the Cymbalta. She apparently did get some better; however, she continued to have decreased handgrip, weakness , and poor oral intake, as well as increased lethargy and sleeping. In the ED a chest x-ray, EKG, and laboratory data were obtained. Laboratory data was significant for a sodium of 120, BUN 47 , and a creatinine of 2.6, with potassium of 5.9, as well as a leukocytes esterase positive urinary tract infection. A chest x-ray showed increased postobstructive pneumonitis bilaterally secondary to her bronchogenic carcinoma. Fluid resuscitation was started in the emergency room, as well as IV Rocephin. The patient did become hypotensive. She was admitted inpatient to the ICU. They trended her sodium. Continued with gentle fluid rehydration and monitored her fluid status closely. She was on strict I's and O's and daily weights. For her postobstructive pneumonitis, she was given Solu-Medrol in the ED. Dr. Oralia Tsai was consulted. Dr. Aung Barahona was consulted for management of her right urethral stent that he placed on 2016. The patient has been rehydrated. She was feeling better and the family requested Dr. Barahona to come by and evaluate the timing of her urethral stent management. There was suspicion for urinary tract infection, with the final urine culture showing no growth. She did undergo a cystoscopy, retrograde pyelogram, with a right urethral stent exchange by Dr. Barahona on 12/2016. She continued to have respiratory distress secondary to atelectasis, lung cancer, and pleural fluid. She was initiated on IV Lasix. They were able to wean her oxygen needs down. She remained on nasal cannula. She did have some residual shortness of breath. Hematology/ Oncology, as well as hospitalist group talked to her about going home with hospice; however, the family was not ready for that and they wanted to go home with home health, they discussed rehab. Initially they declined, but then they decided to go to [facility] for rehab. However, on 03/02/2017 a rapid response was called because of an acute onset shortness of breath. Her proBNP was found to be extremely high. Her chest x-ray showed multifocal pneumonia, so we continued to treat her with IV antibiotics. She was placed on BiPAP and continued on diuretic therapy. Since that time Ms. Sepulveda had been on BiPAP, non-rebreather, and a partial mask. Pulmonology was consulted. They agreed with our treatment of diuresis, antibiotics, BiPAP. Clinically, her x-ray worsened. Her proBNP worsened. She was still maintaining high requirement oxygen. Her mentation had not improved. The patient's family was still wanting her transferred to [facility] bed for rehab. Again, after speaking with the family and educating that it would be hard to rehab someone who was unable to maintain adequate oxygen saturation on a mask while she was lying in bed and sometimes would desat and need higher oxygen with a non-rebreather and BiPAP. We felt that she would need to be readmitted to the hospital and the family would want her to come back to [facility] if she would need to be readmitted. So after talking with Dr. Palmer and the patient's oxygen needs went up again, she was transferred to [facility] again for respiratory failure, and still requiring hefty oxygen requirements. Again, she continue coverage with cefepime and vancomycin. Added Flagyl for aspiration coverage and continued with diuresis over the weekend. She did improve. Her mentation was getting better; however, her oxygen requirement is We did wean O2 as tolerated to keep her sats between 88 and 90%. We did not feel that she was stable enough to still go to a swing bed on a face mask. We still felt like she was hospice appropriate, so did pulmonology, as well as Hematology. Dr. Tsai discussed again with the family about hospice and how she has reached maximum benefit from all current therapy in the hospital. They discussed her wishes as far as her long-term goals. The patient reports she wanted to go home. Her plan is to transition the patient to hospice care and discharge her home. She will be discharged today with [facility]. VITAL SIGNS: Temperature is 97.4 degrees, heart rate 64, respirations 16, blood pressure 104/59, O2 is 95% on a non-rebreather. DISCHARGE DIET: Was mechanical soft with Ensure with each meal. DISCHARGE MEDICATIONS: Will be as per Dr. Juan Antonio Rai MD DISPOSITION: Ms. Sepulveda is being discharged home with [facility] [place] [facility]. DISCHARGE TIME: Greater than 45 minutes. Dictated by ANTHONY Xie for Juan Antonio Rai MD cc: Jua nAntonio Rai MD [facility] CENTERJostin
--- NOTE | 2017-03-16 03:34 | DISCHARGE SUMMARY ---
ADMISSION DATE: 02/22/2017 DISCHARGE DATE: 03/10/2017 ADDENDUM: Patient seen and examined by me face to face. All the lab work, vital Signs and images were reviewed. This patient has metastatic recurrent nonsmall cell lung cancer with multiple lines of treatment. We discussed her goals of care and this patient has poor prognosis. This is why the family decided to put this patient in home hospice. Also she has a history of B-cell lymphoma, but with no evidence of recurrence. I do believe this patient is hospice appropriate and she will be discharged with hospice care. The family agreed with this. She will be discharged with [facility]. Like I said, she has poor prognosis. cc: Juan Antonio Rai MD
== END 2017-03-10 17:56 | disposition hospice, home (50) ==
LOC: ED 18:40 → SUATTDRO 22:40 → ICU 22:40 → 3N 02-25 16:40 → 3S 03-05 15:21
PROVIDERS: ATTEND Internal Medicine